=== PATIENT | female | born 1975 | race African-American/Black ===

== ENCOUNTER 2016-07-24 14:50 | Inpatient (IN) | payer OTHER ==
[~2016-07-24] VITALS: Ht 162.6 cm; Wt 65.3 kg
[2016-07-24] MEDS ORDERED: ACETAMINOPHEN 325 MG TAB PO STA (15:09)
[2016-07-24] MEDS ORDERED: PIPER-TAZO 3.375 GM IV (PMX) 100 ML IVPB STA (15:09)
[2016-07-24] MEDS ORDERED: CLINDAMYCIN 900 MG/D5W (PMX) 50 ML IVPB STA (15:09)
[2016-07-24] MEDS ORDERED: VANCOMYCIN 1 GM (PMX) 250 ML IVPB STA (15:09)
[2016-07-24] MEDS ORDERED: SODIUM CHLORIDE 0.9% 1L BAG IV* STA (15:09)
[2016-07-24] MEDS ORDERED: HYDR-905 PO (15:35)
[2016-07-24] MEDS ORDERED: RIVA10TA PO (15:37)
[2016-07-24 16:23] LABS: ADD SCAN DIFF NO
[2016-07-24 16:29] LABS: BASOPHILS % 0.2 % (0.0-2.0); EOSINOPHILS % 0.2 % (0.0-7.0); HEMATOCRIT 38.3 % (37.0-47.0); HEMOGLOBIN 12.9 g/dl (12.0-16.0); LYMPHOCYTES # 1.1 10^3/ul (0.8-2.9); LYMPHOCYTES % 8.7 % (15.0-51.0); MEAN CORPUSCULAR HEMOGLOBIN 29.3 pg (29.0-33.0); MEAN CORPUSCULAR HGB CONC 33.7 g/dl (32.0-37.0); MEAN CORPUSCULAR VOLUME 86.8 fl (82.0-101.0); MEAN PLATELET VOLUME 8.7 fl (7.4-10.4); MONOCYTE # 1.2 10^3/ul (0.3-0.9); MONOCYTES % 9.6 % (0.0-11.0); NEUTROPHIL # 10.1 10^3/ul (1.6-7.5); PLATELET COUNT 358 10^3/UL (140-415); RED BLOOD COUNT 4.41 10^6/ul (4.20-5.40); RED CELL DISTRIBUTION WIDTH 11.9 % (11.5-14.5); WHITE BLOOD COUNT 12.4 10^3/ul (4.8-10.8)
[2016-07-24] MEDS ORDERED: ONDANSETRON 4 MG INJ IV STA (16:29)
[2016-07-24] MEDS ORDERED: morphine 2 MG INJ IV STA (16:29)
--- NOTE | 2016-07-24 16:29 | RADRPT ---
PROCEDURE: XR Chest. CLINICAL INDICATION: chest pain, sepsis TECHNIQUE: Single frontal view of the chest was obtained COMPARISON: None FINDINGS: The heart and mediastinum are within normal limits. The lungs are clear. There is no pleural effusion or pneumothorax. RPTAT: AA IMPRESSION: No acute disease. .Destin Draper MD, MD Date Time Electronically viewed and signed by .Destin Draper MD, on 07/24/2016 16:29 .S/
[2016-07-24 16:35] LABS: ADD UMIC YES; URINE BILIRUBIN (Dip) NEGATIVE (NEGATIVE); URINE BLOOD (Dip) 1+ (NEGATIVE); URINE COLOR LT. YELLOW (YELLOW); URINE GLUCOSE (Dip) NEGATIVE (NEGATIVE); URINE KETONES (Dip) 15 (NEGATIVE); URINE LEUKOCYTE ESTERASE (Dip) NEGATIVE (NEGATIVE); URINE NITRITE (Dip) NEGATIVE (NEGATIVE); URINE TOTAL PROTEIN (Dip) TRACE (NEGATIVE); URINE UROBILINOGEN (Dip) 0.2 E.U./dL (0.1-1.0)
[2016-07-24 16:39] LABS: ALBUMIN 4.1 g/dl (3.3-4.9); CHLORIDE 96 mmol/L (97-110); POTASSIUM 3.9 mmol/L (3.5-5.1); SODIUM 134 mmol/L (135-144)
[2016-07-24 16:40] LABS: INR 1.14; PROTIME 14.6 Sec (12.2-14.2); PT RATIO 1.1
[2016-07-24 16:41] LABS: CREATININE 0.77 mg/dl (0.44-1.00); PARTIAL THROMBOPLASTIN TIME 40.1 Sec (25.0-35.0)
[2016-07-24 16:42] LABS: ALANINE AMINOTRANSFERASE 34 IU/L (13-69); ALKALINE PHOSPHATASE 88 IU/L (42-121); ANION GAP 16 (8-16); ASPARTATE AMINO TRANSFERASE 22 IU/L (15-46); BILIRUBIN,INDIRECT 1.2 mg/dl (0-1.1); BILIRUBIN,TOTAL 1.2 mg/dl (0.2-1.3); BLOOD UREA NITROGEN 8 mg/dl (7-20); CARBON DIOXIDE 26 mmol/L (21-31); TOTAL PROTEIN 8.2 g/dl (6.1-8.1)
[2016-07-24 16:43] LABS: CALCIUM 9.1 mg/dl (8.4-10.2); GLUCOSE 110 mg/dl (70-220)
[2016-07-24 16:49] LABS: BACTERIA,URINE MANY; SQUAMOUS EPITHELIAL CELL,UR MANY
[2016-07-24 16:58] LABS: C-REACTIVE PROTEIN 19.2 mg/dl (0.0-0.9); TROPONIN-I < 0.012 ng/ml (0.00-0.12)
[2016-07-24] MEDS: ACETAMINOPHEN 325 MG TAB PO PRN ×2 (17:00→18:14)
--- NOTE | 2016-07-24 17:22 | RADRPT ---
PROCEDURE: Ultrasound of the left lower extremity venous system. CLINICAL INDICATION: Left leg pain and swelling, deep venous thrombosis TECHNIQUE: Alba scale with and without compression, color doppler, spectral doppler of the venous system of the left lower extremity was performed. Venous augmentation maneuvers were utilized. COMPARISON: No prior studies are available for comparison. FINDINGS: Common femoral vein: Patent. Femoral vein: Patent. Popliteal vein: Patent. Calf veins: Patent. No soft tissue abnormalities are identified. IMPRESSION: No evidence of a deep vein thrombosis within the left lower extremity. RPTAT: AADD .Vel Moreno MD, MD Date Time Electronically viewed and signed by .Vel Moreno MD, on 07/24/2016 17:22 .B/
--- NOTE | 2016-07-24 17:50 | CONS ---
DATE OF ADMISSION: 07/24/2016 DATE OF CONSULTATION: 07/24/2016 TYPE OF CONSULTATION: Infectious Disease. REASON FOR CONSULTATION: Antibiotic management. HISTORY OF PRESENT ILLNESS: Graciela Solo is a very pleasant 41-year-old -[place]ovenian female who has no significant past medical history aside from injuries to her knees. She had arthroscopy o n her right knee after an injury in high school and on 05/16/2016 she injured her left knee and unde rwent an ACL reconstruction and medial and lateral meniscus repair on 07/12/2014. At that time, the knee was cultured and she grew out scant Proteus mirabilis and enterococcus. The knee was then violet spirated today and the patient sent to the emergency room. Of note, is the fact that she had a feve r last night up to 103. She had no runny nose or sore throat, but did have a painful left knee. Cu rrently, her temperature is 99. Blood cultures were done. Urine cultures were done. Aspiration of the knee was done. PAST MEDICAL HISTORY: Operations as outlined. FAMILY HISTORY: She is a single. Her mother and father are alive, but she is adopted. HABITS: She does not smoke. She drinks occasional red wine. She was born in [place]. No re cent travel. Moved here in 2000. She has no pets. She rarely eats sushi. She works for [employer] in [place]. REVIEW OF SYSTEMS: Otherwise, is negative. PHYSICAL EXAMINATION: GENERAL: The patient is a well-developed, well-nourished, friendly female who is alert, responsive, in no acute distress. VITAL SIGNS: Stable. She is afebrile. Temperature on admission was 103.2. SKIN: Without generalized rash. HEENT: Within normal limits. NECK: Supple. LYMPH NODES: None palpable. CHEST: Decreased breath sounds at the bases. HEART: Without murmur or gallop. ABDOMEN: Soft, nontender, without organosplenomegaly or masses. EXTREMITIES: The left knee is wrapped and bandaged and in a brace. Right knee and right lower extr emity without cyanosis, clubbing, or edema. Pulses 2+. RECTAL AND GENITAL: Deferred. NEUROLOGIC: No focal neurological abnormality. IMPRESSION AND PLAN: Graciela Solo is a pleasant 41-year-old female, who comes in now with fevers and possible infected left knee. She grew out scant Proteus mirabilis and enterococcus. She will be started on vancomycin and Zosyn until we get the new cultures back. I will dictate my findings t o Dr. Merlyn Tafoya. I want to thank him for asking me to see this jennifer lady in consultation. Dictated By: JENISE LEONG MD, JD/JUAN Conf#: [id number] DID#: [id number] CC: MERLYN TAFOYA MD; JENISE LEONG MD;*[facility]*
[2016-07-24] MEDS ORDERED: ONDANSETRON 4 MG INJ IV PRN (18:00)
--- NOTE | 2016-07-24 19:19 | ERA ---
ER Documentation Chief Complaint Date/Time DATE: 07/24/16 TIME: 19:12 Chief Complaint 12 POST OP R ACL REPAIR, FEVER 103.2 HPI This is a very pleasant 41-year-old -[place] female who has no significant past medical history. She had arthroscopy on her right knee after an injury in high school and on 05/16/2016 and underwent an ACL repair with medial lateral meniscus repair on July 12, 2014 performed by the orthopedic surgeon Dr. Valle. The patient indicates she has no shortness of breath at rest or exertion. She presented for reevaluation today and orthopedics office and was seen by orthopedic surgeon Dr. Álvarez who aspirated the knee, as the patient stated she had developed a fever. Her fever began roughly 12 hours prior to arrival was 103. She did not take any antipyretics. She indicated that several years prior to arrival she repeated her temperature was 102. Her temperature was 99.0 an orthopedic surgeon's office. She denies no calf tenderness or swelling. She has not had a productive or nonproductive cough. She did indicate she had gone to the emergency room several days prior to arrival for constipation after taking opiate analgesic medication and was concerned that she could have been subjected to a sick contact at that time. ROS All systems reviewed and are negative except as per history of present illness. Medications Home Meds Reported Medications Rivaroxaban* (Xarelto*) 10 Mg Tablet, 10 MG PO DAILY for 7 Days, #7 TAB start 07/23/16 07/24/16 Hydrocodone/Acetaminophen ([place] 7.5-325 Tablet) 1 Each Tablet, 1 EACH PO Q6H, TAB 07/24/16 Allergies Allergies: Coded Allergies: No Known Allergy (Unverified , 07/24/16) PMhx/Soc History of Surgery: Yes (Lt knee sx 07/2016, Rt knee 1993, Salpingoophrectomy 2009) Anesthesia Reaction: No Hx Neurological Disorder: No Hx Respiratory Disorders: No Hx Cardiac Disorders: No Hx Psychiatric Problems: No Hx Miscellaneous Medical Probl: Yes (ectopic preg) Hx Alcohol Use: Yes (occassional) Hx Substance Use: No Hx Tobacco Use: No Smoking Status: Never smoker Physical Exam Vitals Vital Signs Date Time Temp Pulse Resp B/P Pulse Ox O2 Delivery O2 Flow Rate FiO2 07/24/16 17:30 101 16 111/66 99 Room Air 07/24/16 16:35 99.7 108 18 116/78 100 Room Air 07/24/16 16:00 99.6 110 18 118/79 100 Room Air 07/24/16 15:01 103.2 115 18 116/63 99 Physical Exam Constitutional:Well-developed. Well-nourished. HEENT:Normocephalic. Atraumatic.Pupils were equal round reactive to light. Moist mucous membranes.No tonsillar exudates. Neck: No nuchal rigidity. No lymphadenopathy. No posterior cervical spine tenderness or step-offs. Respiratory: Not using accessory muscles of respiration.Lungs were clear to auscultation bilaterally. No rhonchi. No rales. No wheezing. Cardiovascular: Regular rate regular rhythm.No murmurs. No rubs were appreciated.S1, S2 normal. Distal pulses are palpable 2+ bilaterally. GI: Abdomen was soft. Nontender. Non Distended. No pulsatile abdominal masses or bruits. No rebound. No guarding. Bowel sounds were present and normal. Muscle skeletal: Full range of motion of both the upper and lower extremities bilaterally.Normal muscle tone.No assymetrical calf tenderness or swelling. Skin: No petechia, no purpura. No lesions on the palms or the soles of the feet. No maculopapular rash. Surgical incision site on the medial aspect of the left knee was clean dry and intact with no wound dehiscence. No surrounding erythema warmth tenderness fluctuance or induration. NEURO: Patient was alert, awake, orientated x3.No facial droop. Gait observed and normal with no ataxia.Speech had regular rate and rhythm. No focal neurological deficits. Result Diagram: 07/24/16 1600 07/24/16 1600 Results 24 hrs Laboratory Tests Test 07/24/16 16:00 White Blood Count 12.410^3/ul Red Blood Count 4.4110^6/ul Hemoglobin 12.9g/dl Hematocrit 38.3% Mean Corpuscular Volume 86.8fl Mean Corpuscular Hemoglobin 29.3pg Mean Corpuscular Hemoglobin Concent 33.7g/dl Red Cell Distribution Width 11.9% Platelet Count 15162^3/UL Mean Platelet Volume 8.7fl Neutrophils % 81.0% Lymphocytes % 8.7% Monocytes % 9.6% Eosinophils % 0.2% Basophils % 0.2% Nucleated Red Blood Cells % 0.0/100WBC Neutrophils # 10.110^3/ul Lymphocytes # 1.110^3/ul Monocytes # 1.210^3/ul Eosinophils # 0.010^3/ul Basophils # 0.010^3/ul Nucleated Red Blood Cells # 0.010^3/ul Erythrocyte Sedimentation Rate 54mm/Hr Prothrombin Time 14.6Sec Prothrombin Time Ratio 1.1 INR International Normalized Ratio 1.14 Activated Partial Thromboplast Time 40.1Sec Urine Color LT. YELLOW Urine Clarity SLIGHTLY CLOUDY Urine pH 7.0 Urine Specific [place] 1.015 Urine Ketones 15 Urine Nitrite NEGATIVE Urine Bilirubin NEGATIVE Urine Urobilinogen 0.2 E.U./dL Urine Leukocyte Esterase NEGATIVE Urine Microscopic RBC 2-5/HPF Urine Microscopic WBC 0-2/HPF Urine Squamous Epithelial Cells MANY Urine Bacteria MANY Urine Hemoglobin 1+ Urine Glucose NEGATIVE% Urine Total Protein TRACE Sodium Level 134mmol/L Potassium Level 3.9mmol/L Chloride Level 96mmol/L Carbon Dioxide Level 26mmol/L Anion Gap 16 Blood Urea Nitrogen 8mg/dl Creatinine 0.77mg/dl Glucose Level 110mg/dl Lactic Acid Level 1.2mmol/L Calcium Level 9.1mg/dl Total Bilirubin 1.2mg/dl Direct Bilirubin 0.00mg/dl Indirect Bilirubin 1.2mg/dl Aspartate Amino Transf (AST/SGOT) 22IU/L Alanine Aminotransferase (ALT/SGPT) 34IU/L Alkaline Phosphatase 88IU/L Troponin I < 0.012ng/ml C-Reactive Protein 19.2mg/dl Total Protein 8.2g/dl Albumin 4.1g/dl Globulin 4.10g/dl Albumin/Globulin Ratio 1.00 Serum HCG, Qualitative NEGATIVE Current Medications Medications (Trade) Dose Ordered Sig/Ce Route PRN Reason Start Time Stop Time Status Last Admin Dose Admin Sodium Chloride (NS) 1,760 ml BOLUS OVER 2 HOURS STAT IV* 07/24/16 15:09 07/24/16 15:16 DC 07/24/16 16:20 Acetaminophen 1000 mg 1,000 mg ONCE STAT PO 07/24/16 15:09 07/24/16 15:17 DC Vancomycin HCl 250 ml @ 125 mls/hr ONCE STAT IVPB 07/24/16 15:09 07/24/16 17:08 DC 07/24/16 18:55 Clindamycin HCl/ Dextrose 50 ml @ 50 mls/hr ONCE STAT IVPB 07/24/16 15:09 07/24/16 16:08 DC Piperacillin Sod/ Tazobactam Sod (Zosyn 3.375gm/ 100 ml (Pmx)) 100 ml @ 100 mls/hr ONCE STAT IVPB 07/24/16 15:09 07/24/16 16:08 DC 07/24/16 16:30 Morphine Sulfate (morphine) 2 mg ONCE STAT IV 07/24/16 16:29 07/24/16 16:32 DC 07/24/16 16:30 Ondansetron HCl (Zofran Inj) 4 mg ONCE STAT IV 07/24/16 16:29 07/24/16 16:32 DC 07/24/16 16:30 Ondansetron HCl (Zofran Inj) 4 mg ER BRIDGE PRN IV NAUSEA AND/OR VOMITING 07/24/16 18:00 07/25/16 17:59 07/24/16 16:25 Acetaminophen (Tylenol Tab) 650 mg ER BRIDGE PRN PO MILD PAIN/FEVER 07/24/16 18:00 07/25/16 17:59 07/24/16 17:00 Procedures/MDM This patient presented to the emergency department with a documented fever. A chest radiograph was obtained and showed no evidence of pneumonia. There is no leukocytosis. Lactic acid was within normal limits. An arthrocentesis have been performed by Dr. Nick and the aspirated fluid is currently been sent for cell culture, Gram stain, and cell count. The patient had taken one 10 mg tablet of Xarelto yesterday prescribed by Dr. Valle but did not take that today as she was scheduled to fly next Friday to [facility] to receive an award. A venous duplex ultrasound of the left lower extremity indicated no evidence of a deep vein thrombosis. The surgical incision site looks clean dry and intact. However given the severity of the patient's symptoms she was prophylactically treated with IV antibiotics including vancomycin, Zosyn and clindamycin. Blood cultures and urine cultures were taken prior to antibiotics being given. The patient will be admitted to the medical surgical floor in serious condition under the care of Dr. Valle. 12 Lead EKG tracing ordered and reviewed by myself showed: Sinus tach at 109 bpm and no arrhythmia. IN interval normal. QRS duration normal. No ST segment elevation No ST segment depression. No changes consistent with acute ischemia. Departure Diagnosis: Primary Impression: Fever and chills Additional Impression: Post-op pain Condition: Serious RAS HOBBS Jul 24, 2016 19:19
[2016-07-24 20:10] LABS: FLUID APPEARANCE BLOODY; FLUID TYPE OTHERS
[2016-07-24 20:12] LABS: FLUID RBC EST 4+; FLUID WBC'S 3692 /cmm
[2016-07-24 20:13] LABS: FLUID LYMPHOCYTES 10 %; FLUID MONOCYTES 6 %; FLUID NEUTROPHILS 84 %
--- NOTE | 2016-07-24 20:58 | CONS ---
DATE OF ADMISSION: 07/24/2016 DATE OF CONSULTATION: ADDENDUM In my initial dictation I said that she grew out scant Proteus mirabilis and Enterococcus from her l eft knee. This was not correct. An aspiration was done and we are awaiting the results of the aspi ration. She did have a fever up to 103.2 in the emergency room. She was started on vancomycin and Zosyn and we will await the cultures. I have discussed the case with Dr. Pablo Valle and will aw ait the culture results. Dictated By: JENISE LEONG MD, JD/JUAN Conf#: [id number] DID#: [id number]
[2016-07-24 21:00] VITALS: TEMP 98.5
[2016-07-24 22:26] VITALS: PULSE 101
[2016-07-24 22:32] VITALS: BP 116/64; RESP 18
[2016-07-24] MEDS ORDERED: SOD CHLORIDE 0.9% 1,000 ML IV SCH (23:38)
[2016-07-25] VITALS (19 sets, daily range): BP systolic 101–115; BP diastolic 56–74; PULSE 93–114; RESP 13–22; Ht 162.6 cm; Wt 65.3 kg
[2016-07-25] MEDS ORDERED: BISACODYL 10 MG SUPP PR PRN
[2016-07-25] MEDS ORDERED: NA PHOSPHATE/BIPHOS 133 ML ENEMA PR PRN
[2016-07-25] MEDS ORDERED: MAGNESIUM HYDROXIDE 30ML CUP PO PRN
[2016-07-25] MEDS ORDERED: DIPHENHYDRAMINE 25 MG CAP PO PRN
--- NOTE | 2016-07-25 00:05 | HP ---
DATE OF ADMISSION: 07/24/2016 CHIEF COMPLAINT: 1. Right knee pain. 2. High fever. HISTORY OF PRESENT ILLNESS: The patient is a 41-year-old female well known to me who injured her kn ee in a basketball game on 05/16/2016 and was found to have torn the anterior cruciate ligament. On 07/12/2016, she had arthroscopy of the left knee with partial medial and lateral meniscectomy and a nterior cruciate ligament reconstruction with Achilles tendon allograft. Her postoperative visit , her knee looked very good. She was doing fine. Friday night or Friday, she started feelin g somewhat ill, had a very high fever today, was feeling bad and was seen in the office on an emerge ncy basis. Aspiration was done in the office for culture and sensitivity in her knee and in the wou nd along the proximal tibia. No fluid was in the wound of proximal tibia. There was some blood arielle t was sent for culture and sensitivity from the knee, looked to be from residual surgery. Because o f very high fevers and our great concern of sepsis and an infection, and she is admitted now for hos pitalization. PAST HISTORY OF PRESENT ILLNESS: As above. PAST MEDICAL HISTORY: ALLERGIES: 1. LATEX. 2. DAIRY. 3. SHRIMP. 4. CRAB. MEDICATIONS: She took 1 Xarelto yesterday because she was going to travel, but she is not going to travel now. Other medications none. SURGERY: Right ACL repair. MEDICAL PROBLEMS: Unstable right shoulder. FAMILY HISTORY: Positive for hypertension. SOCIAL HISTORY: Nonsmoker. Drinks occasionally. REVIEW OF SYSTEMS: Negative except as noted above. PHYSICAL EXAMINATION: GENERAL: Pleasant female, oriented x3. VITAL SIGNS: Her blood pressure was 150/100, her pulse was over 100, respirations were 18, and her temperature was 101.5. EXTREMITIES: Orthopedic exam which revealed small effusion in the knee, warmth in both knees but no t increased in the right. Range of motion could not be assessed due to pain. She had pain along th e medial proximal tibial wound. The wound itself had slight serous drainage. ASSESSMENT: 1. High fever, rule out sepsis and possible knee infection. 2. Status post partial medial and lateral meniscectomy and anterior cruciate ligament reconstructio n of left knee with Achilles allograft on 07/12/[address] Valle. PLAN: 1. Emergency admission. 2. Blood and urine cultures. 3. Emergency stat lab. 4. Consultation with Dr. Casper for infectious disease considerations and IV antibiotics. 5. We will watch the patient very carefully to determine appropriate course of action. Dictated By: MERLYN MULTANI/JUAN Conf#: [id number] DID#: [id number]
[2016-07-25] MEDS: PIPER-TAZO 2.25 GM (PMX) 50 ML IVPB SCH ×4 (00:16→22:46)
--- NOTE | 2016-07-25 06:58 | PN ---
Date/Time of Note Date/Time of Note DATE: 07/25/16 TIME: 06:54 Assessment/Plan VTE Prophylaxis VTE Prophylaxis Intervention: ambulation, other (Xarelto) Lines/Catheters IV Catheter Type (from Nrsg): Peripheral IV Assessment/Plan Chief Complaint/Hosp Course s/p ACL reconstruction with Achilles allograft on 07/12/16, now with concern for sepic arthritis vs. other febrile etiology Problems: Assessment/Plan 1. Pain control 2. PT/OT, ok for WBAT on LLE, ok for 0-90 ROM, in hinged knee brace 3. Concern for infected TKR: Cell count 3400 with 84% polys, cultures pending, gram stain pending. Unlikely infection given these aspirate numbers. Continue Vanc/Zosyn. ID following, appreciate assistance. Urine cultures negative. Blood culture pending. 4. DVT PPX: Ambulation, Xarelto 5. NPO for now, will likely progress diet later this am pending gram stain results. Subjective 24 Hr Interval Summary Subjective hx not possible: other (No acute events overnight. HR decreased and temp to 100.4. ) Constitutional: chills Respiratory: no complaints Cardiovascular: no complaints Gastrointestinal: no complaints Exam/Review of Systems Vital Signs Vitals Vital Signs Date Time Temp Pulse Resp B/P Pulse Ox O2 Delivery O2 Flow Rate FiO2 07/25/16 05:00 99.0 98 17 111/69 100 Room Air Intake and Output 07/24/16 07/24/16 07/25/16 15:00 23:00 07:00 Intake Total 350 ml 700 ml Output Total 600 ml Balance 350 ml 100 ml Exam Constitutional: alert, oriented Psych: no complaints Respiratory: normal air movement Cardiovascular: regular rate and rhythm Extremities: other (Able to move foot. Sensation intact. Dressing CDI. No drainage or foul smelling discharge. ) Results Result Diagram: 07/24/16 1600 07/24/16 1600 Results 24 hrs Laboratory Tests Test 07/24/16 16:00 07/24/16 19:30 07/24/16 20:10 White Blood Count 12.4 H Red Blood Count 4.41 Hemoglobin 12.9 Hematocrit 38.3 Mean Corpuscular Volume 86.8 Mean Corpuscular Hemoglobin 29.3 Mean Corpuscular Hemoglobin Concent 33.7 Red Cell Distribution Width 11.9 Platelet Count 358 Mean Platelet Volume 8.7 Neutrophils % 81.0 H Lymphocytes % 8.7 L Monocytes % 9.6 Eosinophils % 0.2 Basophils % 0.2 Nucleated Red Blood Cells % 0.0 Neutrophils # 10.1 H Lymphocytes # 1.1 Monocytes # 1.2 H Eosinophils # 0.0 Basophils # 0.0 Nucleated Red Blood Cells # 0.0 Erythrocyte Sedimentation Rate 54 H Prothrombin Time 14.6 H Prothrombin Time Ratio 1.1 INR International Normalized Ratio 1.14 Activated Partial Thromboplast Time 40.1 H Urine Color LT. YELLOW Urine Clarity SLIGHTLY CLOUDY Urine pH 7.0 Urine Specific [place] 1.015 Urine Ketones 15 Urine Nitrite NEGATIVE Urine Bilirubin NEGATIVE Urine Urobilinogen 0.2 E.U./dL Urine Leukocyte Esterase NEGATIVE Urine Microscopic RBC 2-5 Urine Microscopic WBC 0-2 Urine Squamous Epithelial Cells MANY Urine Bacteria MANY Urine Hemoglobin 1+ H Urine Glucose NEGATIVE Urine Total Protein TRACE Body Fluid Type OTHERS Body Fluid Volume 1.0 Body Fluid Color RED Body Fluid Appearance BLOODY Body Fluid WBC 3692 Body Fluid RBC 4+ Body Fluid Neutrophils % 84 Body Fluid Lymphocytes (%) 10 Body Fluid Monocytes % 6 Sodium Level 134 L Potassium Level 3.9 Chloride Level 96 L Carbon Dioxide Level 26 Anion Gap 16 Blood Urea Nitrogen 8 Creatinine 0.77 Glucose Level 110 Lactic Acid Level 1.2 1.9 0.7 Calcium Level 9.1 Total Bilirubin 1.2 Direct Bilirubin 0.00 Indirect Bilirubin 1.2 H Aspartate Amino Transf (AST/SGOT) 22 Alanine Aminotransferase (ALT/SGPT) 34 Alkaline Phosphatase 88 Troponin I < 0.012 C-Reactive Protein 19.2 H Total Protein 8.2 H Albumin 4.1 Globulin 4.10 H Albumin/Globulin Ratio 1.00 Serum HCG, Qualitative NEGATIVE Medications Medications Current Medications Senna/Docusate Sodium (Senokot-S) 1 tab BID PO ; Start 07/25/16 at 09:00 Magnesium Hydroxide (Milk Of Mag) 30 ml BID PRN PO CONSTIPATION; Start at 00:00 Magnesium Hydroxide (Milk Of Mag) 30 ml HS PO ; Start 07/26/16 at 21:00 Bisacodyl (Dulcolax Supp) 10 mg DAILY PRN MT CONSTIPATION; Start 07/25/16 at 00 :00 Sodium Biphosphate/ Sodium Phosphate (Fleet Enema) 133 ml DAILY PRN MT CONSTIPATION; Start 07/25/16 at 00:00 Acetaminophen 1000 mg 1,000 mg Q4H PRN PO TEMP GREATER THAN 100.4F; Start 07/25 at 00:00 Sodium Chloride (NS) 1,000 ml @ 100 mls/hr Q10H IV Last administered on 00:17; Admin Dose 100 MLS/HR; Start 07/24/16 at 23:38 Oxycodone/ Acetaminophen (Percocet (5/ 325)) 1 tab Q4H PRN PO PAIN; Start 07/25 at 00:00 Oxycodone/ Acetaminophen (Percocet (5/ 325)) 2 tab Q4H PRN PO PAIN; Start 07/25 at 00:00 Morphine Sulfate (morphine) 5 mg Q4H PRN IV PAIN LEVEL 7-10; Start 07/25/16 at 00:00 Ondansetron HCl (Zofran Inj) 4 mg Q4H PRN IV NAUSEA AND/OR VOMITING; Start at 00:00 Diphenhydramine HCl 25 mg 25 mg Q4H PRN PO ITCHING; Start 07/25/16 at 00:00 Vancomycin HCl 1.25 gm/Sodium Chloride 250 ml @ 83.333 mls/ hr Q24H IVPB ; Start 07/25/16 at 18:00 Piperacillin Sod/ Tazobactam Sod (Zosyn 2.25gm/ 50ml (Pmx)) 50 ml @ 100 mls/hr Q8 IVPB Last administered on 07/25/16 05:55; Admin Dose 100 MLS/HR; Start at 00:00 MERLYN TAFOYA MD Jul 25, 2016 06:58
[2016-07-25] MEDS ORDERED: ACETAMINOPHEN 1000 MG/100 ML IVPB ONE (07:00)
[2016-07-25] MEDS ORDERED: morphine 4 MG/ML VIAL IV ONE ×2 (08:00)
[2016-07-25] MEDS: DEXTROSE 5%-LR 1,000 ML IV SCH ×2 (08:06→22:44)
[2016-07-25] MEDS: SENNA/DOCUSATE NA (8.6MG/50MG) TAB PO SCH ×2 (08:10→22:37)
[2016-07-25] MEDS: ACETAMINOPHEN 500 MG TAB PO PRN (08:10)
[2016-07-25] MEDS: ONDANSETRON 4 MG INJ IV PRN ×2 (08:10→13:09)
[2016-07-25] MEDS: morphine 10 MG INJ IV PRN ×2 (08:10→13:09)
--- NOTE | 2016-07-25 16:02 | PN ---
DATE: 07/25/2016 SUBJECTIVE: This is an infectious disease progress note. No acute changes. The patient is alert, feels good, looks comfortable. VITAL SIGNS: T-max 100.8, T-current 98.6. No labs this morning. MICROBIOLOGY: Cultures are pending. ANTIMICROBIALS: The patient is on IV vancomycin and Zosyn. PHYSICAL EXAMINATION: GENERAL: Well-developed, well-nourished middle-aged -[place] woman who is alert, in no dist ress. HEENT: Head atraumatic, normocephalic. Sclerae anicteric. Buccal mucosa pink. NECK: Supple. CHEST: Rise symmetrical. Breath sounds clear. HEART: S1, S2. ABDOMEN: Soft, bowel sounds present. EXTREMITIES: Left lower extremity John wrap, knee immobilizer. ASSESSMENT: 1. Infected left knee, rule out septic arthritis, status post anterior cruciate ligament reconstruc tion with Achilles allograft on 07/12/2016. 2. Systemic inflammatory response syndrome with low grade fevers and leukocytosis. PLAN: The patient remains stable. Final cultures pending. She is scheduled for left knee washout today. Dictated By: MARITZA DE PAZ CYTOTECHNOLOGIST/CYTOLOGY SUPERVISOR for JENISE LEONG MD NI/NTS Conf#: [id number] DID#: [id number]
[2016-07-25] MEDS ORDERED: BUPIVACAINE 0.5% (SDV) 30 ML INJ ONE (17:03)
[2016-07-25] MEDS ORDERED: PROPOFOL 20 ML ONE ×2 (17:22→18:36)
[2016-07-25] MEDS ORDERED: FENTAnyl 50 MCG/ML VIAL ONE ×2 (17:22→17:44)
[2016-07-25] MEDS ORDERED: MIDAZOLAM 1 MG/ML 2 ML INJ ONE (17:22)
[2016-07-25] MEDS ORDERED: VANCOMYCIN 1 GM (PMX) 250 ML ONE (17:26)
[2016-07-25] MEDS: RIVAROXABAN 10 MG TABLET PO SCH (17:55)
[2016-07-25] MEDS ORDERED: POLYMYXIN B 500000 UNIT INJ ONE (17:59)
[2016-07-25] MEDS ORDERED: VANCOMYCIN 1.25 GM in SOD CHLORIDE 0.9% 250 ML IVPB SCH (18:00)
[2016-07-25] MEDS ORDERED: LABETALOL HCL 20MG INJ ONE (18:01)
[2016-07-25] MEDS ORDERED: METOCLOPRAMIDE 10 MG INJ ONE (18:23)
[2016-07-25] MEDS ORDERED: DEXAMETHASONE 4 MG/ML 1 ML INJ ONE (18:23)
[2016-07-25] MEDS ORDERED: KETOROLAC 30 MG INJ ONE (18:23)
[2016-07-25] MEDS ORDERED: ONDANSETRON 4 MG INJ ONE (18:23)
[2016-07-25] MEDS ORDERED: HYDROmorphONE (0.2 MG/ML) 10ML SYG IV PRN ×3 (18:30)
[2016-07-25] MEDS ORDERED: DIPHENHYDRAMINE 50 MG INJ IV PRN (18:30)
[2016-07-25] MEDS ORDERED: METOCLOPRAMIDE 10 MG INJ IV PRN (18:30)
[2016-07-25] MEDS ORDERED: OXYCODONE/ACETAMINOPHEN (5/325) TAB PO PRN ×4 (18:30)
[2016-07-25] MEDS ORDERED: morphine (1 MG/ML) 10ML SYRINGE IV PRN ×3 (18:30)
[2016-07-25] MEDS ORDERED: ONDANSETRON 4 MG INJ IV PRN (18:30)
[2016-07-25] MEDS ORDERED: ALBUMIN HUMAN 5% 250 ML IV PRN (18:30)
[2016-07-25] MEDS ORDERED: EPHEDrine SULFATE 50 MG/5 ML SYG IV PRN (18:30)
[2016-07-25] MEDS ORDERED: VANCOMYCIN IV PER PHARMACY XX SCH (18:30)
[2016-07-25] MEDS ORDERED: MEPERIDINE 25 MG INJ IV PRN (18:30)
[2016-07-25] MEDS ORDERED: MEPERIDINE 100 MG INJ ONE (18:36)
[2016-07-25] MEDS ORDERED: PHENYLephrine (100 MCG/ML) 5ML SYG ONE (18:37)
[2016-07-25] MEDS ORDERED: VANCOMYCIN 1 GM INJ ONE (18:50)
[2016-07-25] MEDS ORDERED: BACITRACIN 50000 UNITS INJ IRR ONE (19:19)
--- NOTE | 2016-07-25 19:33 | PN ---
Date/Time of Note Date/Time of Note DATE: 07/25/16 TIME: 19:30 Assessment/Plan VTE Prophylaxis VTE Prophylaxis Intervention: other (Xarelto) Lines/Catheters IV Catheter Type (from Nrsg): Peripheral IV Urinary Cath still in place: No Assessment/Plan Chief Complaint/Hosp Course s/p ACL reconstruction with Achilles allograft on 07/12/16, and s/p I&D with cultures on 07/25/16 Problems: Assessment/Plan POD0 s/p I&D of left infected knee and ACL graft - Pain control: CLAY MOLDER, PO pain meds, wean CLAY MOLDER as tolerated - PT/OT, WBAT LLE - Drain in place, monitor output q8 hours - New cultures taken in OR, monitor new cultures and cell count, purulent material noted in knee/wound - ID: Recommendations appreciated, will follow cultures. Currently on Vanc/ Zosyn. - Trend CRP/ESR, will re-check CRP on Friday 07/28 evening. - Possibly return to OR on Thursday 07/27 if necessary - Diet: Advance to regular as tolerated. Subjective 24 Hr Interval Summary Subjective hx not possible: other Exam/Review of Systems Vital Signs Vitals Vital Signs Date Time Temp Pulse Resp B/P Pulse Ox O2 Delivery O2 Flow Rate FiO2 07/25/16 16:29 108 07/25/16 13:17 98.6 22 101/59 97 Room Air Intake and Output 07/24/16 07/24/16 07/25/16 15:00 23:00 07:00 Intake Total 350 ml 700 ml Output Total 600 ml Balance 350 ml 100 ml Results Result Diagram: 07/24/16 1600 07/24/16 1600 Results 24 hrs Laboratory Tests Test 07/24/16 20:10 Lactic Acid Level 0.7 Medications Medications Current Medications Senna/Docusate Sodium (Senokot-S) 1 tab BID PO Last administered on 07/25/16t 08:10; Admin Dose 1 TAB; Start 07/25/16 at 09:00 Magnesium Hydroxide (Milk Of Mag) 30 ml BID PRN PO CONSTIPATION; Start at 00:00 Magnesium Hydroxide (Milk Of Mag) 30 ml HS PO ; Start 07/26/16 at 21:00 Bisacodyl (Dulcolax Supp) 10 mg DAILY PRN [place] CONSTIPATION; Start 07/25/16 at 00 :00 Sodium Biphosphate/ Sodium Phosphate (Fleet Enema) 133 ml DAILY PRN [place] CONSTIPATION; Start 07/25/16 at 00:00 Acetaminophen (Tylenol Tab) 1,000 mg Q4H PRN PO TEMP GREATER THAN 100.4F Last administered on 07/25/16 08:10; Admin Dose 1,000 MG; Start 07/25/16 at 00:00 Oxycodone/ Acetaminophen (Percocet (5/ 325)) 1 tab Q4H PRN PO PAIN; Start 07/25 at 00:00 Oxycodone/ Acetaminophen (Percocet (5/ 325)) 2 tab Q4H PRN PO PAIN; Start 07/25 at 00:00 Morphine Sulfate (morphine) 5 mg Q4H PRN IV PAIN LEVEL 7-10 Last administered on 07/25/16 13:09; Admin Dose 5 MG; Start 07/25/16 at 00:00 Ondansetron HCl (Zofran Inj) 4 mg Q4H PRN IV NAUSEA AND/OR VOMITING Last administered on 07/25/16 13:09; Admin Dose 4 MG; Start 07/25/16 at 00:00 Diphenhydramine HCl 25 mg 25 mg Q4H PRN PO ITCHING; Start 07/25/16 at 00:00 Piperacillin Sod/ Tazobactam Sod 50 ml @ 100 mls/hr Q8 IVPB Last administered on 07/25/16 13:09; Admin Dose 100 MLS/HR; Start 07/25/16 at 00:00 Dextrose/Lactated Ringer's 1,000 ml @ 75 mls/hr [id number] IV Last administered on 07/25/16 08:06; Admin Dose 75 MLS/HR; Start 07/25/16 at 08:00 Vancomycin HCl/ Sodium Chloride (Vancocin/NS) 150 ml @ 75 mls/hr Q12H IVPB ; Start 07/26/16 at 06:00 MERLYN TAFOYA MD Jul 25, 2016 19:33
[2016-07-25 22:21] LABS: ADD SCAN DIFF NO
[2016-07-25 22:23] LABS: ABNORMAL IP MESSAGE 1; HEMATOCRIT 30.3 % (37.0-47.0); HEMOGLOBIN 10.1 g/dl (12.0-16.0); MEAN CORPUSCULAR HEMOGLOBIN 29.4 pg (29.0-33.0); MEAN CORPUSCULAR HGB CONC 33.3 g/dl (32.0-37.0); MEAN CORPUSCULAR VOLUME 88.3 fl (82.0-101.0); MEAN PLATELET VOLUME 8.4 fl (7.4-10.4); PLATELET COUNT 283 10^3/UL (140-415); RED BLOOD COUNT 3.43 10^6/ul (4.20-5.40); RED CELL DISTRIBUTION WIDTH 12.2 % (11.5-14.5); WHITE BLOOD COUNT 9.7 10^3/ul (4.8-10.8)
[2016-07-25 23:22] LABS: BASOPHIL # 0.1 10^3/ul (0.0-0.1); LYMPHOCYTES # 0.5 10^3/ul (0.8-2.9); MONOCYTE # 0.4 10^3/ul (0.3-0.9); NEUTROPHIL # 8.5 10^3/ul (1.6-7.5)
[2016-07-25 23:23] LABS: PLATELET ESTIMATE PLT APPEAR ADEQUATE
[2016-07-26] VITALS (13 sets, daily range): BP systolic 91–111; BP diastolic 53–69; PULSE 81–90; RESP 18–20
[2016-07-26] MEDS: PIPER-TAZO 2.25 GM (PMX) 50 ML IVPB SCH ×2 (05:52→14:27)
[2016-07-26] MEDS ORDERED: VANCOMYCIN 750 MG in SOD CHLORIDE 0.9% 150 ML IVPB SCH (06:00)
[2016-07-26 07:53] LABS: CREATININE 0.53 mg/dl (0.44-1.00)
[2016-07-26] MEDS: SENNA/DOCUSATE NA (8.6MG/50MG) TAB PO SCH ×2 (09:11→19:33)
[2016-07-26] MEDS: BISACODYL (EC) 5 MG TAB PO PRN (10:11)
[2016-07-26] MEDS: DEXTROSE 5%-LR 1,000 ML IV SCH (10:40)
[2016-07-26 14:21] LABS: FLUID TYPE OTHERS
[2016-07-26 14:22] LABS: FLUID APPEARANCE BLOODY
[2016-07-26 14:23] LABS: FLUID RBC EST 4+
[2016-07-26 14:24] LABS: FLUID EOSINOPHIL 1 %; FLUID LYMPHOCYTES 4 %; FLUID MONOCYTES 7 %; FLUID NEUTROPHILS 88 %
[2016-07-26 14:27] LABS: FLUID WBC'S 50 /cmm
--- NOTE | 2016-07-26 15:21 | OPR ---
DATE OF OPERATION: 07/24/2016 PREOPERATIVE DIAGNOSES: 1. Status post anterior cruciate ligament reconstruction, left knee with partial medial and lateral meniscectomy. 2. Rule out infection, left knee, status post surgery. POSTOPERATIVE DIAGNOSES: 1. Apparent infection, left knee after surgery. 2. Status post arthroscopy left knee with partial medial and lateral meniscectomy and anterior cruc iate ligament reconstruction with Achilles tendon allograft, 07/12/2016. PROCEDURE: 1. Arthroscopy of the left knee. 2. Irrigation, debridement and partial synovectomy, left knee. 3. Open irrigation and debridement proximal tibial wound. SURGEON: Merlyn Valle MD CAR WASH ATTENDANT AUTOMATIC: Liz Álvarez MD ANESTHESIA: General. TOURNIQUET TIME: Zero. DESCRIPTION OF PROCEDURE: The patient taken to the operating room, placed in supine position. Sati sfactory general anesthesia was administered. The patient was already on antibiotics. She had been admitted several days previously. At approximately 12 days postop, she developed a high fever up t o 103, became septic, was admitted to [facility]. Multiple cultures have been taken. It a ppears that she has an infection in her knee, admitted now for surgery. Standard arthroscopic portals were used. The fluid was removed out of her knee looked purulent. It was sent for cell count and culture and sensitivity, aerobes and anaerobes. Extensive amount of de bris, scar tissue and synovitis in the knee. This was all removed with a shaver and a grasper. Mul tiple synovial biopsies were sent for culture and sensitivity. The articular surfaces looked intact and were smooth and glistening. The debris and exudate was peeled off of the menisci, and ACL and PCL. The graft looked intact as did the menisci. After completely debriding the entire knee, the k nee was washed out with 15 liters of antibiotic fluid. Prior to doing the arthroscopy, we draped of f the proximal tibial wound. After irrigating out the knee completely, a Johan-Marrero drain was pl aced in the knee. The wounds were closed with 3-0 black nylon. With the knee wounds closed. our at tention turned to the proximal tibial wound where the ACL was inserted. The wound was opened. There was purulence in the wound. Cultures had been taken in the morning. The subcutaneous sutures and the fascial sutures were removed. The Fastlok staple and graft and scr ew were left in place. The wound was debrided and then irrigated with 10 liters of antibiotic fluid . One gram of vancomycin powder was then placed in the wound. The wound was closed with #1 large n ylon sutures tied over a rubber catheter Three large ones were used to close the space and the n 4-0 black nylon was used interrupted and mattress to close the skin. A compression dressing was a pplied, and placed back in a brace and she was brought to the recovery room in stable condition. At the end of the procedure, sponge and needle count was correct. The patient tolerated the procedure well. Dictated By: MERLYN MULTANI/JUAN Conf#: [id number] DID#: [id number]
[2016-07-26] MEDS: morphine 10 MG INJ IV PRN ×3 (15:57→22:45)
[2016-07-26] MEDS: ONDANSETRON 4 MG INJ IV PRN (16:07)
--- NOTE | 2016-07-26 16:34 | PN ---
Date/Time of Note Date/Time of Note DATE: 07/26/16 TIME: 16:31 Assessment/Plan VTE Prophylaxis VTE Prophylaxis Intervention: ambulation, other Lines/Catheters IV Catheter Type (from Nrsg): Peripheral IV Urinary Cath still in place: No Assessment/Plan Chief Complaint/Hosp Course s/p ACL reconstruction with Achilles allograft on 07/12/16, and s/p I&D with cultures on 07/25/16 Problems: Assessment/Plan - Pain control - SCD's, ambulation, Xarelto for DVT PPx - ID: Cultures growing Staph. Awaiting sensitivities. WBC down to 9.4. Will trend CRP and obtain a CRP tonight. PICC line pending. - Plan for repeat I&D of left knee tomorrow am - NPO past midnight tonight. - IVF at 125cc/hour after midnight tonight - PT/OT - Dispo pending final cultures, final Abx plan. Subjective 24 Hr Interval Summary Subjective hx not possible: other (No acute overnight events. Afebrile, feeling better. ) Exam/Review of Systems Vital Signs Vitals Vital Signs Date Time Temp Pulse Resp B/P Pulse Ox O2 Delivery O2 Flow Rate FiO2 07/26/16 16:07 89 07/26/16 15:22 98.6 20 104/59 98 07/25/16 21:08 Room Air 07/25/16 20:34 2.0 Intake and Output 07/25/16 07/25/16 07/26/16 15:00 23:00 07:00 Intake Total 450 ml 08670 ml 260 ml Output Total 25 ml Balance 450 ml 23976 ml 260 ml Exam Constitutional: alert, oriented Musculoskeletal: other (Left knee dressing CDI, Able to FP/DF foot, sensation intact. HV drain draining. ) Results Result Diagram: 07/25/16 2200 07/26/16 0605 Results 24 hrs Laboratory Tests Test 07/25/16 19:00 07/25/16 22:00 07/26/16 06:05 Body Fluid Type OTHERS Body Fluid Volume 20.0 Body Fluid Color RED Body Fluid Appearance BLOODY Body Fluid WBC 50 Body Fluid RBC 4+ Body Fluid Neutrophils % 88 Body Fluid Lymphocytes (%) 4 Body Fluid Monocytes % 7 Body Fluid Eosinophils % 1 White Blood Count 9.7 # Red Blood Count 3.43 #L Hemoglobin 10.1 #L Hematocrit 30.3 #L Mean Corpuscular Volume 88.3 Mean Corpuscular Hemoglobin 29.4 Mean Corpuscular Hemoglobin Concent 33.3 Red Cell Distribution Width 12.2 Platelet Count 283 # Mean Platelet Volume 8.4 Neutrophils % 88.0 H Band Neutrophils % 2.0 Lymphocytes % 5.0 L Monocytes % 4.0 Basophils % 1.0 Neutrophils # 8.5 H Lymphocytes # 0.5 L Monocytes # 0.4 Basophils # 0.1 Platelet Estimate PLT APPEAR ADEQUATE Blood Urea Nitrogen 6 L Creatinine 0.53 Medications Medications Current Medications Senna/Docusate Sodium (Senokot-S) 1 tab BID PO Last administered on 07/26/16 09:11; Admin Dose 1 TAB; Start 07/25/16 at 09:00 Magnesium Hydroxide (Milk Of Mag) 30 ml BID PRN PO CONSTIPATION; Start at 00:00 Magnesium Hydroxide (Milk Of Mag) 30 ml HS PO ; Start 07/26/16 at 21:00 Bisacodyl (Dulcolax Supp) 10 mg DAILY PRN [place] CONSTIPATION; Start 07/25/16 at 00 :00 Sodium Biphosphate/ Sodium Phosphate (Fleet Enema) 133 ml DAILY PRN [place] CONSTIPATION; Start 07/25/16 at 00:00 Acetaminophen (Tylenol Tab) 1,000 mg Q4H PRN PO TEMP GREATER THAN 100.4F Last administered on 07/25/16 08:10; Admin Dose 1,000 MG; Start 07/25/16 at 00:00 Oxycodone/ Acetaminophen (Percocet (5/ 325)) 1 tab Q4H PRN PO PAIN; Start 07/25 at 00:00 Oxycodone/ Acetaminophen (Percocet (5/ 325)) 2 tab Q4H PRN PO PAIN; Start 07/25 at 00:00 Morphine Sulfate (morphine) 5 mg Q4H PRN IV PAIN LEVEL 7-10 Last administered on 07/26/16 15:57; Admin Dose 2 MG; Start 07/25/16 at 00:00 Ondansetron HCl (Zofran Inj) 4 mg Q4H PRN IV NAUSEA AND/OR VOMITING Last administered on 07/26/16 16:07; Admin Dose 4 MG; Start 07/25/16 at 00:00 Diphenhydramine HCl 25 mg 25 mg Q4H PRN PO ITCHING; Start 07/25/16 at 00:00 Dextrose/Lactated Ringer's (D5-Lr) 1,000 ml @ 75 mls/hr [id number] IV Last administered on 07/25/16 22:44; Admin Dose 75 MLS/HR; Start 07/25/16 at 08:00 Bisacodyl 10 mg 10 mg DAILY PRN PO CONSTIPATION Last administered on 07/26/16 10:11; Admin Dose 10 MG; Start 07/26/16 at 09:30 Vancomycin HCl/ Sodium Chloride (Vancocin/NS) 250 ml @ 83.333 mls/ hr Q12H IVPB ; Start 07/26/16 at 18:00 Miscellaneous Information (*Rx Drug Level Order Reminder*) 1 ONCE ONCE XX ; Start 07/27/16 at 05:00; Stop 07/27/16 at 05:01 Lidocaine 5 ml 5 ml ONCE SC ; Start 07/26/16 at 17:00; Stop 07/26/16 at 17:01 Ceftriaxone Sodium (Rocephin) 50 ml @ 100 mls/hr Q24H IVPB ; Start 07/26/16 at 16:30 MERLYN TAFOYA MD Jul 26, 2016 16:34
--- NOTE | 2016-07-26 16:53 | PN ---
DATE: 07/26/2016 SUBJECTIVE: Patient is alert, feels better, looks comfortable. She is afebrile. MICROBIOLOGY: Cultures are growing Staphylococcus aureus preliminary. Anaerobic culture negative. Also, preliminary urine culture growing gram-negative rods. ANTIMICROBIALS: The patient is on: 1. Vancomycin. 2. Zosyn. PHYSICAL EXAMINATION: GENERAL: Well-developed, middle-aged -[place] woman who is alert, in no distress. HEENT: Head atraumatic, normocephalic. Sclerae anicteric. Buccal mucosa pink. NECK: Supple. CHEST: Rise symmetrical. Breath sounds clear. HEART: S1, S2. ABDOMEN: Soft. Bowel sounds present. EXTREMITIES: Left lower extremity dressing intact. Wound VAC present. ASSESSMENT: 1. Left knee septic arthritis with culture growing Staphylococcus aureus, status post irrigation, d ebridement and partial synovectomy. 2. Urinary tract infection. 3. Systemic inflammatory response syndrome. 4. History of recent left knee surgery on 07/12/2016. PLAN: The patient remains stable. We are going to discontinue Zosyn and start her on Rocephin, francisco it for final urine cultures. We will await for final wound cultures, order PICC line. Patient will need to be on long-term IV antibiotics for septic joint treatment. If culture grows Staphylococcus aureus, oxacillin sensitive, we will send her on antibiotics for 4 weeks. If it is MRSA, she will require 6 weeks IV antibiotics. PICC line ordered. Above was discussed with Dr. Jenise Valle. Above was discussed with the patient at bedside. Dictated By: MARITZA DE PAZ DISEASE MANAGEMENT NURSE for JENISE LEONG MD NI/NTS Conf#: [id number] DID#: [id number]
[2016-07-26] MEDS ORDERED: LIDOCAINE 1% (MPF) 5 ML VIAL SC SCH (17:00)
[2016-07-26] MEDS: RIVAROXABAN 10 MG TABLET PO SCH (17:14)
[2016-07-26] MEDS: CEFTRIAXONE 1 GM/50 ML (PMX) 50 ML IVPB SCH (17:14)
[2016-07-26] MEDS: VANCOMYCIN 1.25 GM in SOD CHLORIDE 0.9% 250 ML IVPB SCH (18:52)
[2016-07-26] MEDS: MAGNESIUM HYDROXIDE 30ML CUP PO SCH ×2 (19:34→22:48)
[2016-07-26 20:32] LABS: ADD SCAN DIFF NO
[2016-07-26 20:43] LABS: BASOPHILS % 0.1 % (0.0-2.0); EOSINOPHILS % 0.1 % (0.0-7.0); HEMATOCRIT 28.5 % (37.0-47.0); HEMOGLOBIN 9.7 g/dl (12.0-16.0); LYMPHOCYTES # 1.6 10^3/ul (0.8-2.9); LYMPHOCYTES % 12.3 % (15.0-51.0); MEAN CORPUSCULAR HEMOGLOBIN 29.8 pg (29.0-33.0); MEAN CORPUSCULAR VOLUME 87.7 fl (82.0-101.0); MONOCYTE # 0.9 10^3/ul (0.3-0.9); MONOCYTES % 7.1 % (0.0-11.0); NEUTROPHIL # 10.6 10^3/ul (1.6-7.5); PLATELET COUNT 357 10^3/UL (140-415); RED BLOOD COUNT 3.25 10^6/ul (4.20-5.40); RED CELL DISTRIBUTION WIDTH 12.1 % (11.5-14.5); WHITE BLOOD COUNT 13.3 10^3/ul (4.8-10.8)
[2016-07-26] MEDS ORDERED: KETOROLAC 30 MG INJ IV STA (21:26)
[2016-07-27] VITALS (24 sets, daily range): BP systolic 105–127; BP diastolic 58–70; PULSE 72–104; RESP 11–20
[2016-07-27] MEDS: ONDANSETRON 4 MG INJ IV PRN ×4 (00:36→16:47)
[2016-07-27] MEDS: DEXTROSE 5%-LR 1,000 ML IV SCH ×3 (03:25→13:02)
[2016-07-27] MEDS: morphine 10 MG INJ IV PRN ×3 (04:40→16:50)
[2016-07-27] MEDS ORDERED: LIDOCAINE 2% (SDV) 5 ML INJ ONE (07:00)
[2016-07-27] MEDS ORDERED: GLYCOPYRROLATE 1 MG INJ ONE (07:00)
[2016-07-27] MEDS: VANCOMYCIN 1.25 GM in SOD CHLORIDE 0.9% 250 ML IVPB SCH (07:13)
[2016-07-27] MEDS ORDERED: BACITRACIN 50000 UNITS INJ ONE ×3 (07:25→10:00)
[2016-07-27] MEDS ORDERED: POLYMYXIN B 500000 UNIT INJ ONE ×3 (07:28→09:59)
[2016-07-27] MEDS ORDERED: FENTAnyl 50 MCG/ML VIAL ONE ×2 (07:31→08:28)
[2016-07-27] MEDS ORDERED: ONDANSETRON 4 MG INJ ONE (07:31)
[2016-07-27] MEDS ORDERED: VANCOMYCIN 1 GM INJ ONE (07:31)
[2016-07-27] MEDS ORDERED: CEFAZOLIN 1 GM INJ ONE (07:31)
[2016-07-27] MEDS ORDERED: PROPOFOL 20 ML ONE (07:31)
[2016-07-27] MEDS ORDERED: NEOSTIGMINE 3 MG/3 ML SYRINGE ONE (07:31)
[2016-07-27] MEDS ORDERED: ROCURONIUM 50 MG INJ ONE (07:31)
[2016-07-27] MEDS ORDERED: DEXAMETHASONE 4 MG/ML 1 ML INJ ONE (07:31)
[2016-07-27] MEDS ORDERED: MIDAZOLAM 1 MG/ML 2 ML INJ ONE (07:31)
[2016-07-27] MEDS ORDERED: EPHEDrine SULFATE 50 MG/5 ML SYG ONE (07:56)
[2016-07-27] MEDS ORDERED: LABETALOL HCL 20MG INJ ONE (08:18)
[2016-07-27] MEDS ORDERED: FENTAnyl 50 MCG/ML VIAL IV PRN ×3 (08:30)
[2016-07-27] MEDS ORDERED: ONDANSETRON 4 MG INJ IV PRN (08:30)
[2016-07-27] MEDS ORDERED: MEPERIDINE 25 MG INJ IV PRN (08:30)
[2016-07-27] MEDS ORDERED: MIDAZOLAM 1 MG/ML 2 ML INJ IV PRN (08:30)
[2016-07-27] MEDS ORDERED: LABETALOL HCL 20MG INJ IV PRN (08:30)
[2016-07-27] MEDS ORDERED: EPHEDrine SULFATE 50 MG/5 ML SYG IV PRN (08:30)
[2016-07-27] MEDS ORDERED: TRIMETHOBENZAMIDE 100 MG/ML VIAL IM PRN (08:30)
[2016-07-27] MEDS ORDERED: DIPHENHYDRAMINE 50 MG INJ IV PRN (08:30)
[2016-07-27] MEDS ORDERED: HYDROmorphONE (0.2 MG/ML) 10ML SYG IV PRN ×3 (08:30)
[2016-07-27] MEDS ORDERED: hydrALAzine 20 MG INJ IV PRN (08:30)
[2016-07-27] MEDS ORDERED: ROPIVACAINE 0.5 % 30 ML VIAL ONE (08:45)
[2016-07-27] MEDS ORDERED: BACITRACIN/POLYMYXIN 28.35 GM OINT TOP ONE (08:51)
[2016-07-27] MEDS ORDERED: METOCLOPRAMIDE 10 MG INJ ONE (08:55)
[2016-07-27] MEDS: SENNA/DOCUSATE NA (8.6MG/50MG) TAB PO SCH ×3 (09:00→20:02)
--- NOTE | 2016-07-27 09:45 | PN ---
Date/Time of Note Date/Time of Note DATE: 07/27/16 TIME: 09:41 Assessment/Plan VTE Prophylaxis VTE Prophylaxis Intervention: ambulation, other (Xarelto) Lines/Catheters IV Catheter Type (from Nrs): Peripheral IV Urinary Cath still in place: No Assessment/Plan Chief Complaint/Hosp Course s/p ACL reconstruction with Achilles allograft on 07/12/16, and s/p I&D with cultures on 07/25/16 and again on 07/27/16 Problems: Assessment/Plan Staph aureus post-operative infection s/p ACL reconstruction, now s/p I&D x 2 - Pain control: Percocet, Morphine - PT/OT, WBAT LLE, ok for ROM - SCD's/xarelto - ID: Staph aureus on cultures. Awaiting sensitivities. Awaiting PICC placement. Likely home on 6 weeks of IV Abx. Will re-check WBC and CRP tomorrow, continue to trend CRP. Continue Vanc and Rocephin, monitor trough and Cr. - OK for regular diet - Likely discharge Friday or Friday pending ID set up and Abx finalization. Subjective 24 Hr Interval Summary Subjective hx not possible: other (Post-op Note: ) Exam/Review of Systems Vital Signs Vitals Vital Signs Date Time Temp Pulse Resp B/P Pulse Ox O2 Delivery O2 Flow Rate FiO2 07/27/16 09:31 98.0 07/27/16 07:00 79 19 123/63 98 07/25/16 21:08 Room Air 07/25/16 20:34 2.0 Intake and Output 07/26/16 07/26/16 07/27/16 15:00 23:00 07:00 Intake Total 960 ml 1940 ml Balance 960 ml 1940 ml Exam Constitutional: alert, oriented Respiratory: normal air movement Cardiovascular: regular rate and rhythm Musculoskeletal: other (Improved effusion. Bandages clean and dry. NVID. ) Results Result Diagram: 07/26/16201407/26/1605 Results 24 hrs Laboratory Tests Test 07/26/16 20:15 07/27/16 05:19 White Blood Count 13.3 #H Red Blood Count 3.25 L Hemoglobin 9.7 L Hematocrit 28.5 L Mean Corpuscular Volume 87.7 Mean Corpuscular Hemoglobin 29.8 Mean Corpuscular Hemoglobin Concent 34.0 Red Cell Distribution Width 12.1 Platelet Count 357 # Mean Platelet Volume 9.0 Neutrophils % 80.0 H Lymphocytes % 12.3 L Monocytes % 7.1 Eosinophils % 0.1 Basophils % 0.1 Nucleated Red Blood Cells % 0.0 Neutrophils # 10.6 H Lymphocytes # 1.6 Monocytes # 0.9 Eosinophils # 0.0 Basophils # 0.0 Nucleated Red Blood Cells # 0.0 C-Reactive Protein 19.8 H Vancomycin Level Trough 9.0 L Medications Medications Current Medications Senna/Docusate Sodium (Senokot-S) 1 tab BID PO Last administered on 07/26/16 19:33; Admin Dose 1 TAB; Start 07/25/16 at 09:00 Magnesium Hydroxide (Milk Of Mag) 30 ml BID PRN PO CONSTIPATION; Start at 00:00 Magnesium Hydroxide (Milk Of Mag) 30 ml HS PO Last administered on 07/26/16 22 :48; Admin Dose 30 ML; Start 07/26/16 at 21:00 Bisacodyl (Dulcolax Supp) 10 mg DAILY PRN [place] CONSTIPATION; Start 07/25/16 at 00 :00 Sodium Biphosphate/ Sodium Phosphate (Fleet Enema) 133 ml DAILY PRN [place] CONSTIPATION; Start 07/25/16 at 00:00 Acetaminophen (Tylenol Tab) 1,000 mg Q4H PRN PO TEMP GREATER THAN 100.4F Last administered on 07/25/16 08:10; Admin Dose 1,000 MG; Start 07/25/16 at 00:00 Oxycodone/ Acetaminophen (Percocet (5/ 325)) 1 tab Q4H PRN PO PAIN; Start 07/25 at 00:00 Oxycodone/ Acetaminophen (Percocet (5/ 325)) 2 tab Q4H PRN PO PAIN Last administered on 07/26/16 21:11; Admin Dose 2 TAB; Start 07/25/16 at 00:00 Morphine Sulfate (morphine) 5 mg Q4H PRN IV PAIN LEVEL 7-10 Last administered on 07/27/16 04:40; Admin Dose 5 MG; Start 07/25/16 at 00:00 Ondansetron HCl (Zofran Inj) 4 mg Q4H PRN IV NAUSEA AND/OR VOMITING Last administered on 07/27/16 04:22; Admin Dose 4 MG; Start 07/25/16 at 00:00 Diphenhydramine HCl 25 mg 25 mg Q4H PRN PO ITCHING; Start 07/25/16 at 00:00 Dextrose/Lactated Ringer's (D5-Lr) 1,000 ml @ 75 mls/hr [id number] Last administered on 07/27/16 03:25; Admin Dose 75 MLS/HR; Start 07/25/16 at 08:00 Bisacodyl 10 mg 10 mg DAILY PRN PO CONSTIPATION Last administered on 07/26/16 10:11; Admin Dose 10 MG; Start 07/26/16 at 09:30 Vancomycin HCl 1.25 gm/Sodium Chloride 250 ml @ 83.333 mls/ hr Q12H IVPB Last administered on 07/27/16 07:13; Admin Dose 83.333 MLS/HR; Start 07/26/16 at 18: 00; Stop 07/27/16 at 10:00 Ceftriaxone Sodium (Rocephin) 50 ml @ 100 mls/hr Q24H IVPB Last administered on 07/26/16 17:14; Admin Dose 100 MLS/HR; Start 07/26/16 at 16:30 Vancomycin HCl PER PHARMACY DOSING NOTE XX ; Start 07/25/16 at 18:30 Vancomycin HCl/ Sodium Chloride (Vancocin/NS) 250 ml @ 83.333 mls/ hr Q12H IVPB ; Start 07/27/16 at 18:00 MERLYN TAFOYA MD Jul 27, 2016 09:45
--- NOTE | 2016-07-27 11:09 | OPR ---
DATE OF OPERATION: 07/27/2016 PREOPERATIVE DIAGNOSES: 1. Infection, left knee, status post anterior cruciate ligament reconstruction. 2. Status post anterior cruciate ligament reconstruction, left knee with Achilles tendon allograft. POSTOPERATIVE DIAGNOSES: 1. Infection, left knee, status post anterior cruciate ligament reconstruction. 2. Status post anterior cruciate ligament reconstruction, left knee with Achilles tendon allograft. OPERATION PERFORMED: 1. Arthroscopy of the left knee. 2. Irrigation, extensive debridement and synovectomy of the knee. 3. Open irrigation and debridement proximal tibial wound. SURGEON: Merlyn Valle MD. COURT INTERPRETER: Liz Álvarez MD ANESTHESIA: General. TOURNIQUET TIME: Zero. DESCRIPTION OF PROCEDURE: The patient taken to the operating room, placed in supine position. Sati sfactory general anesthesia was administered. The patient previously had a washout and debridement of her knee wound and intra-articular knee infection. She is taken back to the operating room now f or an additional irrigation and debridement inside the knee as well as on the proximal tibial wound. Her cultures have grown out Staph aureus. Her fever has come down and overall she is feeling much better. The left knee was prepped and draped in the usual manner. Standard arthroscopic portals were used. There was a lot of hematoma and some synovitis in the knee. There was no gross infection or purule nce as there was the first time we did the irrigation. A shaver was inserted. All the clots were r emoved. Synovectomy was performed. Some of the synovitis and clots were sent for additional cultur e and sensitivity. Fifteen liters of saline with polymyxin and Neosporin in the bags were run throu gh the knee in all the areas. All areas were debrided medially and laterally along the ACL graft. Once 15 liters had been run through, the knee looked very clean. Attention turned to the proximal tibial wound. The retention sutures, the remaining sutures were re moved. The wound looked clean as well. There was some residual from the vancomycin powder which wa s in place. The wound was irrigated with 6 liters of saline infiltrated with polymyxin and Neospori n. Vancomycin powder 1 gram was then inserted. The wounds were closed with #1 nylon over rubber brenda sters as well as 4-0 nylon interrupted. The knee arthroscopy portals were closed with 3-0 black nyl on. Compression dressing applied as well as the hinged knee brace. Patient taken to recovery room in stable condition. At the end of the procedure, the sponge and needle count was correct. Patient tolerated procedure well. Dictated By: MERLYN MULTANI/JUAN Conf#: [id number] DID#: [id number]
--- NOTE | 2016-07-27 13:31 | CONS ---
Date/Time of Note Date/Time of Note DATE: 07/27/16 TIME: 13:30 Assessment/Plan Assessment/Plan Chief Complaint/Hosp Course ID PROGRESS NOTE TOTAL ABX DAY # 4=> Vanco IV + Ceftriaxone s/p Zosyn 24H INTERVAL SUMMARY POD #0=> S/p 07/27/16 Knee Arthroscopy Wash-Out Pre and POSTOPERATIVE DIAGNOSES: 1. Infection, left knee, status post anterior cruciate ligament reconstruction. 2. Status post anterior cruciate ligament reconstruction, left knee with Achilles tendon allograft. OPERATION PERFORMED: 1. Arthroscopy of the left knee. 2. Irrigation, extensive debridement and synovectomy of the knee. 3. Open irrigation and debridement proximal tibial wound. * Awake, alert, oriented - doing well post-op, no fevers, chills, * MICRO (+)MRSA TISSUE (BIOPSY) CULTURE Final Organism 1 METHICILLIN RESISTANT S.AUREUS QUANTITY 1+ . MULTI DRUG RESISTANT ORGANISM * 07/24/16 ANAEROBIC CULTURE Final No anaerobe isolated at 72 hours * 07/25/16 ANAEROBIC CULTURE Preliminary No anaerobe isolated at 48 hours URINE CULTURE Final Organism 1 ESCHERICHIA COLI COLONY COUNT <10,000 CFU/ml Organism 2 STREPTOCOCCUS NON TYPEABLE COLONY COUNT 20,000 - 30,000 CFU/ml Beta Streptococcus not Group A maybe a potential pathogen E COLI M.I.C. RX --------- --- AMPICILLIN <=2 S CEFAZOLIN S CEFOTAXIME S CIPROFLOXACIN <=0.25 S GENTAMICIN <=1 S LEVOFLOXACIN <=0.12 S NITROFURANTOIN <=16 S TOBRAMYCIN <=1 S TRIMETHOPRIM/SULFAMETHOXAZOLE <=20 S PHYSICAL EXAMINATION: GENERAL: VSS, NAD HEENT: Unremarkable NECK: Supple, trach-> midline CHEST: Equal chest rise bilaterally, without dyspnea on observation HEART: Pulse RRR ABDOMEN: Soft, benign EXTREMITIES: Warm-> left knee DSG C/D/I SKIN: Warm, dry ID ASSESSMENT: 41 yo F w/hx of recent left knee surgery on 07/12/16 admitted with: 1. Left knee septic arthritis=> (+)MRSA * s/p 07/26/16 arthroscopy of the left knee, irrigation, debridement and partial synovectomy * s/p 07/27/16 arthroscopy of left knee, Irrigation, extensive debridement and synovectomy of the knee, w/open irrigation and debridement proximal tibial wound. 2. Systemic inflammatory response syndrome with leukocytosis elevated ESR, CRP 3. Low colony count bacteriuria ?early UTI vs contaminated sample=> Asymptomatic (-)MRSA Nares INVASIVES: * PIV ABX ALLERGIES: None to ABX CURRENT ABX: # 4=> Vanco IV + Ceftriaxone ID RECOMMENDATIONS: 1. PICC Line placement today pending 2. She will need 6 weeks Vanco IV for MRSA septic knee via PICC line 3. MRSA INPATIENT COLONIZATION PROPHY * -- Hibaclens bath QPM while inpatient * -- Bactroban to Bilateral nares while on inpatient status (preventive colonization) 4. ABX DC PLAN ORDER * DC CEFTRIAXONE in am 07/28/16 * May DC home when cleared by PMD -- on Vanco 1.5 GM IV Q 12 hours @ 0600 & 1800 w/continued dose per OP pharmacist until last day SEPTEMBER 07, 2016 * BASELINES: WT: 65.31 kg, S.Creatinine 0.53, Vanco Trough 0519 am 07/27/16 9.0 * Vanco IV dose increased 07/27/16 1800 dose to 1.5GM Q12 hours * Next lab draw OP HH RN due 07/28/16 prior to 1800 dose = BUN/S.Creatinine & Vanco trough with results called to OP Pharmacist for continued dosing order. Thank you * Problems: Consultation Date/Type/Reason Admit Date/Time Jul 24, 2016 at 17:51 Initial Consult Date Exam/Review of Systems Vital Signs Vitals Vital Signs Date Time Temp Pulse Resp B/P Pulse Ox O2 Delivery O2 Flow Rate FiO2 07/27/16 12:08 95 07/27/16 11:10 97.9 19 123/63 98 07/27/16 10:11 Room Air 07/27/16 09:46 2.0 Intake and Output 07/26/16 07/26/16 07/27/16 15:00 23:00 07:00 Intake Total 960 ml 1940 ml Balance 960 ml 1940 ml Results Result Diagram: 07/26/16201407/26/16 0605 Results 24 hrs Laboratory Tests Test 07/26/16 20:15 07/27/16 05:19 White Blood Count 13.3 #H Red Blood Count 3.25 L Hemoglobin 9.7 L Hematocrit 28.5 L Mean Corpuscular Volume 87.7 Mean Corpuscular Hemoglobin 29.8 Mean Corpuscular Hemoglobin Concent 34.0 Red Cell Distribution Width 12.1 Platelet Count 357 # Mean Platelet Volume 9.0 Neutrophils % 80.0 H Lymphocytes % 12.3 L Monocytes % 7.1 Eosinophils % 0.1 Basophils % 0.1 Nucleated Red Blood Cells % 0.0 Neutrophils # 10.6 H Lymphocytes # 1.6 Monocytes # 0.9 Eosinophils # 0.0 Basophils # 0.0 Nucleated Red Blood Cells # 0.0 C-Reactive Protein 19.8 H Vancomycin Level Trough 9.0 L Medications Medications Current Medications Senna/Docusate Sodium (Senokot-S) 1 tab BID PO Last administered on 07/27/16 12:56; Admin Dose 1 TAB; Start 07/25/16 at 09:00 Magnesium Hydroxide (Milk Of Mag) 30 ml BID PRN PO CONSTIPATION; Start at 00:00 Magnesium Hydroxide (Milk Of Mag) 30 ml HS PO Last administered on 07/26/16 22 :48; Admin Dose 30 ML; Start 07/26/16 at 21:00 Bisacodyl (Dulcolax Supp) 10 mg DAILY PRN [place] CONSTIPATION; Start 07/25/16 at 00 :00 Sodium Biphosphate/ Sodium Phosphate (Fleet Enema) 133 ml DAILY PRN [place] CONSTIPATION; Start 07/25/16 at 00:00 Acetaminophen (Tylenol Tab) 1,000 mg Q4H PRN PO TEMP GREATER THAN 100.4F Last administered on 07/25/16 08:10; Admin Dose 1,000 MG; Start 07/25/16 at 00:00 Oxycodone/ Acetaminophen (Percocet (5/ 325)) 1 tab Q4H PRN PO PAIN; Start 07/25 at 00:00 Oxycodone/ Acetaminophen (Percocet (5/ 325)) 2 tab Q4H PRN PO PAIN Last administered on 07/26/16 21:11; Admin Dose 2 TAB; Start 07/25/16 at 00:00 Morphine Sulfate (morphine) 5 mg Q4H PRN IV PAIN LEVEL 7-10 Last administered on 07/27/16 12:57; Admin Dose 5 MG; Start 07/25/16 at 00:00 Ondansetron HCl (Zofran Inj) 4 mg Q4H PRN IV NAUSEA AND/OR VOMITING Last administered on 07/27/16 12:57; Admin Dose 4 MG; Start 07/25/16 at 00:00 Diphenhydramine HCl 25 mg 25 mg Q4H PRN PO ITCHING; Start 07/25/16 at 00:00 Dextrose/Lactated Ringer's (D5-Lr) 1,000 ml @ 75 mls/hr [id number] IV Last administered on 07/27/16 11:00; Admin Dose 75 MLS/HR; Start 07/25/16 at 08:00 Bisacodyl 10 mg 10 mg DAILY PRN PO CONSTIPATION Last administered on 07/26/16 10:11; Admin Dose 10 MG; Start 07/26/16 at 09:30 Ceftriaxone Sodium (Rocephin) 50 ml @ 100 mls/hr Q24H IVPB Last administered on 07/26/16 17:14; Admin Dose 100 MLS/HR; Start 07/26/16 at 16:30 Vancomycin HCl PER PHARMACY DOSING NOTE XX ; Start 07/25/16 at 18:30 Vancomycin HCl/ Sodium Chloride (Vancocin/NS) 250 ml @ 83.333 mls/ hr Q12H IVPB ; Start 07/27/16 at 18:00 JACK KENNEDY NP Jul 27, 2016 13:31
[2016-07-27] MEDS: CEFTRIAXONE 1 GM/50 ML (PMX) 50 ML IVPB SCH (16:55)
[2016-07-27] MEDS ORDERED: LIDOCAINE 1% (MPF) 5 ML VIAL INJ ONE (17:00)
--- NOTE | 2016-07-27 18:34 | RADRPT ---
PROCEDURE: XR Chest. CLINICAL INDICATION: PICC placement. TECHNIQUE: Single frontal chest x-ray. COMPARISON: Exam dated 07/24/2016. FINDINGS: There has been interval placement of a right-sided PICC with its tip overlying the right atrium. The cardiomediastinal silhouette is within normal limits. The lungs are clear without focal consolidat ion, effusion, or pneumothorax. There are no acute osseous abnormalities. IMPRESSION: 1. Right-sided PICC tip overlying the right atrium. 2. No acute cardiopulmonary abnormality. RPTAT: QQ .Damon Rice MD, MD Date Time Electronically viewed and signed by .Damon Rice MD, on 07/27/2016 18:34 .P/
--- NOTE | 2016-07-27 18:36 | RADRPT ---
PROCEDURE: XR Chest. CLINICAL INDICATION: PICC placement. TECHNIQUE: Single frontal chest x-ray. COMPARISON: Exam dated 07/27/2016 at 1820 hours. FINDINGS: A left-sided PICC remains in place with its tip overlying the right atrium, curving medially towards the tricuspid valve. The cardiomediastinal silhouette is within normal limits. The lungs are clear without focal consolidation, effusion, or pneumothorax. There are no acute osseous abnormalities. IMPRESSION: 1. Right-sided PICC tip in the right atrium curving towards the tricuspid valve. The PICC can be r etracted approximately 3 cm. 2. No acute cardiopulmonary abnormality. RPTAT: QQ .Damon Rice MD, Date Time Electronically viewed and signed by .Damon Rice MD, MD on 07/27/2016 18:35 .P/
--- NOTE | 2016-07-27 18:43 | RADRPT ---
PROCEDURE: XR Chest. CLINICAL INDICATION: PICC readjustment. TECHNIQUE: Single frontal chest x-ray. COMPARISON: Exam dated 07/27/2016. FINDINGS: The pain is been mildly retracted with its tip now just below the superior cavoatrial junction overl julianna the right atrium. The cardiomediastinal silhouette is within normal limits. The lungs are richar r without focal consolidation, effusion, or pneumothorax. There are no acute osseous abnormalities. IMPRESSION: 1. Well-positioned left-sided PICC tip overlying the right atrium. 2. No acute cardiopulmonary abnormality. RPTAT: QQ .Damon Rice MD, MD Date Time Electronically viewed and signed by .Damon Rice MD, on 07/27/2016 18:42 .P/
[2016-07-27] MEDS: RIVAROXABAN 10 MG TABLET PO SCH (18:55)
[2016-07-27] MEDS: VANCOMYCIN 1.5 GM in SOD CHLORIDE 0.9% 250 ML IVPB SCH (18:59)
--- NOTE | 2016-07-27 19:07 | RADRPT ---
PROCEDURE: US guidance for PICC line CLINICAL INDICATION: PICC line placement TECHNIQUE: Multiple real-time images were acquired of the patient's arm utilizing a high resolutio n transducer. This was performed by the PICC line nurse for venous access. COMPARISON: None FINDINGS: Ultrasound guidance for PICC line placement. IMPRESSION: Ultrasound guidance for PICC line placement. RPTAT: AA .Destin Draper MD, MD Date Time Electronically viewed and signed by .Destin Draper MD, on 07/27/2016 19:07 .S/
[2016-07-27] MEDS: MUPIROCIN 2% 22 GM OINT TOP SCH (20:02)
[2016-07-27] MEDS: ACETAMINOPHEN 500 MG TAB PO PRN (20:02)
[2016-07-28] VITALS (8 sets, daily range): BP systolic 99–116; BP diastolic 55–74; PULSE 75–110; RESP 16–20
[2016-07-28] MEDS: DEXTROSE 5%-LR 1,000 ML IV SCH ×2 (02:40→05:44)
[2016-07-28] MEDS: VANCOMYCIN 1.5 GM in SOD CHLORIDE 0.9% 250 ML IVPB SCH ×2 (05:43→18:19)
--- NOTE | 2016-07-28 07:44 | PN ---
Date/Time of Note Date/Time of Note DATE: 07/28/16 TIME: 07:41 Assessment/Plan VTE Prophylaxis VTE Prophylaxis Intervention: other (xarelto) Lines/Catheters IV Catheter Type (from Nrsg): PICC Line Central line still needed: Yes Urinary Cath still in place: No Reason Cath still needed: other (indicate) (6 weeks IV Abx) Assessment/Plan Chief Complaint/Hosp Course s/p ACL reconstruction with Achilles allograft on 07/12/16, and s/p I&D with cultures on 07/25/16 and again on 07/27/16 Problems: Assessment/Plan - Pain control - [place], Morphine PRN. - PT/OT, WBAT - Constipation: stool softeners, suppositories PRN - SCD's, Xarelto - ID: Vancomycin 1.25 g q12. PICC in place. Ordered CRP and WBC to evaluate today. - Discharge: Pending home health Abx set up, likely Friday - Shower chair Subjective 24 Hr Interval Summary Subjective hx not possible: other (no acute issues overnight. c/o right thigh swelling. ) Exam/Review of Systems Vital Signs Vitals Vital Signs Date Time Temp Pulse Resp B/P Pulse Ox O2 Delivery O2 Flow Rate FiO2 07/28/16 07:08 98.0 89 18 114/62 98 07/27/16 10:11 Room Air 07/27/16 09:46 2.0 Intake and Output 07/27/16 07/27/16 07/28/16 15:00 23:00 07:00 Intake Total 1600 ml 2350 ml 1308.33 ml Output Total 5 ml Balance 1595 ml 2350 ml 1308.33 ml Exam Constitutional: alert, oriented Respiratory: normal air movement Cardiovascular: regular rate and rhythm Results Result Diagram: 07/26/16201407/26/16 0605 Medications Medications Current Medications Senna/Docusate Sodium (Senokot-S) 1 tab BID PO Last administered on 07/27/16 20:02; Admin Dose 1 TAB; Start 07/25/16 at 09:00 Magnesium Hydroxide (Milk Of Mag) 30 ml BID PRN PO CONSTIPATION Last administered on 07/27/16 20:02; Admin Dose 30 ML; Start 07/25/16 at 00:00 Magnesium Hydroxide (Milk Of Mag) 30 ml HS PO Last administered on 07/26/16 22 :48; Admin Dose 30 ML; Start 07/26/16 at 21:00 Bisacodyl (Dulcolax Supp) 10 mg DAILY PRN [place] CONSTIPATION; Start 07/25/16 at 00 :00 Sodium Biphosphate/ Sodium Phosphate (Fleet Enema) 133 ml DAILY PRN [place] CONSTIPATION; Start 07/25/16 at 00:00 Acetaminophen (Tylenol Tab) 1,000 mg Q4H PRN PO TEMP GREATER THAN 100.4F Last administered on 07/27/16 20:02; Admin Dose 1,000 MG; Start 07/25/16 at 00:00 Oxycodone/ Acetaminophen (Percocet (5/ 325)) 1 tab Q4H PRN PO PAIN; Start 07/25 at 00:00 Oxycodone/ Acetaminophen (Percocet (5/ 325)) 2 tab Q4H PRN PO PAIN Last administered on 07/26/16 21:11; Admin Dose 2 TAB; Start 07/25/16 at 00:00 Morphine Sulfate (morphine) 5 mg Q4H PRN IV PAIN LEVEL 7-10 Last administered on 07/27/16 16:50; Admin Dose 5 MG; Start 07/25/16 at 00:00 Ondansetron HCl (Zofran Inj) 4 mg Q4H PRN IV NAUSEA AND/OR VOMITING Last administered on 07/27/16 16:47; Admin Dose 4 MG; Start 07/25/16 at 00:00 Diphenhydramine HCl 25 mg 25 mg Q4H PRN PO ITCHING; Start 07/25/16 at 00:00 Dextrose/Lactated Ringer's (D5-Lr) 1,000 ml @ 75 mls/hr [id number] IV Last administered on 07/28/16 05:44; Admin Dose 75 MLS/HR; Start 07/25/16 at 08:00 Bisacodyl 10 mg 10 mg DAILY PRN PO CONSTIPATION Last administered on 07/26/16 10:11; Admin Dose 10 MG; Start 07/26/16 at 09:30 Ceftriaxone Sodium (Rocephin) 50 ml @ 100 mls/hr Q24H IVPB Last administered on 07/27/16 16:55; Admin Dose 100 MLS/HR; Start 07/26/16 at 16:30 Vancomycin HCl PER PHARMACY DOSING NOTE XX ; Start 07/25/16 at 18:30 Vancomycin HCl/ Sodium Chloride (Vancocin/NS) 250 ml @ 83.333 mls/ hr Q12H IVPB Last administered on 07/28/16t 05:43; Admin Dose 83.333 MLS/HR; Start at 18:00 Mupirocin (Bactroban) 1 applic BID TOP ; Start 07/27/16 at 21:00 Acetaminophen/ Hydrocodone Bitart ([place] (5/325)) 1 tab Q4H PRN GTB PAIN LEVEL 1-5; Start 07/27/16 at 16:30 Acetaminophen/ Hydrocodone Bitart ([place] (5/325)) 2 tab Q4H PRN PO PAIN LEVEL 6 -10; Start 07/27/16 at 16:30 IV Flush (NS 10 ml) 10 ml PRN PRN IV FLUSH LINE; Start 07/27/16 at 20:00 MERLYN TAFOYA MD Jul 28, 2016 07:44
[2016-07-28] MEDS: ACETAMINOPHEN 500 MG TAB PO PRN ×3 (08:19→21:05)
[2016-07-28] MEDS: MUPIROCIN 2% 22 GM OINT TOP SCH ×2 (08:19→20:26)
[2016-07-28] MEDS: SENNA/DOCUSATE NA (8.6MG/50MG) TAB PO SCH ×2 (08:19→20:34)
[2016-07-28] MEDS: BISACODYL (EC) 5 MG TAB PO PRN (08:19)
[2016-07-28 11:28] LABS: ADD SCAN DIFF NO
[2016-07-28 11:31] LABS: BASOPHILS % 0.2 % (0.0-2.0); EOSINOPHILS % 0.4 % (0.0-7.0); HEMATOCRIT 27.7 % (37.0-47.0); HEMOGLOBIN 8.8 g/dl (12.0-16.0); LYMPHOCYTES # 3.7 10^3/ul (0.8-2.9); LYMPHOCYTES % 34.8 % (15.0-51.0); MEAN CORPUSCULAR HEMOGLOBIN 28.6 pg (29.0-33.0); MEAN CORPUSCULAR HGB CONC 31.8 g/dl (32.0-37.0); MEAN CORPUSCULAR VOLUME 89.9 fl (82.0-101.0); MEAN PLATELET VOLUME 8.6 fl (7.4-10.4); MONOCYTE # 0.8 10^3/ul (0.3-0.9); MONOCYTES % 7.9 % (0.0-11.0); NEUTROPHIL # 5.9 10^3/ul (1.6-7.5); NEUTROPHILS % 56.3 % (39.0-77.0); PLATELET COUNT 332 10^3/UL (140-415); RED BLOOD COUNT 3.08 10^6/ul (4.20-5.40); RED CELL DISTRIBUTION WIDTH 12.8 % (11.5-14.5); WHITE BLOOD COUNT 10.5 10^3/ul (4.8-10.8)
[2016-07-28] MEDS: CEFTRIAXONE 1 GM/50 ML (PMX) 50 ML IVPB SCH (17:15)
[2016-07-28] MEDS: RIVAROXABAN 10 MG TABLET PO SCH (17:20)
[2016-07-28] MEDS: MAGNESIUM HYDROXIDE 30ML CUP PO SCH (20:33)
--- NOTE | 2016-07-28 20:57 | CONS ---
Date/Time of Note Date/Time of Note DATE: 07/28/16 TIME: 20:50 Assessment/Plan Assessment/Plan Chief Complaint/Hosp Course ID PROGRESS NOTE TOTAL ABX DAY # 5=> Vanco IV + Ceftriaxone s/p Zosyn 24H INTERVAL SUMMARY POD #1=> S/p 07/27/16 Knee Arthroscopy Wash-Out =(+)MRSA septic knee * MICRO (+)MRSA TISSUE (BIOPSY) CULTURE Final Organism 1 METHICILLIN RESISTANT S.AUREUS QUANTITY 1+ . MULTI DRUG RESISTANT ORGANISM * 07/24/16 ANAEROBIC CULTURE Final No anaerobe isolated at 72 hours * 07/25/16 ANAEROBIC CULTURE Final No anaerobe isolated at 72 hours URINE CULTURE Final Organism 1 ESCHERICHIA COLI COLONY COUNT <10,000 CFU/ml Organism 2 STREPTOCOCCUS NON TYPEABLE COLONY COUNT 20,000 - 30,000 CFU/ml Beta Streptococcus not Group A maybe a potential pathogen E COLI M.I.C. RX --------- --- AMPICILLIN <=2 S CEFAZOLIN S CEFOTAXIME S CIPROFLOXACIN <=0.25 S GENTAMICIN <=1 S LEVOFLOXACIN <=0.12 S NITROFURANTOIN <=16 S TOBRAMYCIN <=1 S TRIMETHOPRIM/SULFAMETHOXAZOLE <=20 S PHYSICAL EXAMINATION: GENERAL: VSS, NAD HEENT: Unremarkable NECK: Supple, trach-> midline CHEST: Equal chest rise bilaterally, without dyspnea on observation HEART: Pulse RRR ABDOMEN: Soft, benign EXTREMITIES: Warm-> left knee DSG C/D/I SKIN: Warm, dry ID ASSESSMENT: 41 yo F w/hx of recent left knee surgery on 07/12/16 admitted with: 1. Left knee septic arthritis=> (+)MRSA * s/p 07/26/16 arthroscopy of the left knee, irrigation, debridement and partial synovectomy * s/p 07/27/16 arthroscopy of left knee, Irrigation, extensive debridement and synovectomy of the knee, w/open irrigation and debridement proximal tibial wound. 2. Systemic inflammatory response syndrome with leukocytosis elevated ESR, CRP * 07/28 ESR 60 (prior 54) * 07/28 CRP 5.6 (improved from 19.8) 3. Low colony count bacteriuria ?early UTI vs contaminated sample=> Asymptomatic 4. Constipation - opioid induced (-)MRSA Nares INVASIVES: * PICC Line-> 07/27/16 ABX ALLERGIES: None to ABX CURRENT ABX: # 5=> Vanco IV + Ceftriaxone ID RECOMMENDATIONS: 1. DC pending HH arrangement by supervisor case loading -- likely Friday 2. She will need 6 weeks Vanco IV for MRSA septic knee via PICC line 3. MRSA INPATIENT COLONIZATION PROPHY * -- Hibaclens bath QPM while inpatient * -- Bactroban to Bilateral nares while on inpatient status (preventive colonization) 4. ABX DC PLAN ORDER * DC CEFTRIAXONE at time of DC home * May DC home when cleared by PMD -- on Vanco 1.5 GM IV Q 12 hours @ 0600 & 1800 w/continued dose per OP pharmacist until last day SEPTEMBER 07, 2016 * BASELINES: WT: 65.31 kg, S.Creatinine 0.53, Vanco Trough 0519 am 07/27/16 9.0 * Vanco IV dose increased 07/27/16 1800 dose to 1.5GM Q12 hours * Next lab draw OP HH RN due 07/28/16 prior to 1800 dose = BUN/S.Creatinine & Vanco trough with results called to OP Pharmacist for continued dosing order. Problems: Consultation Date/Type/Reason Admit Date/Time Jul 24, 2016 at 17:51 Exam/Review of Systems Vital Signs Vitals Vital Signs Date Time Temp Pulse Resp B/P Pulse Ox O2 Delivery O2 Flow Rate FiO2 07/28/16 19:56 98.9 91 18 116/74 93 07/28/16 12:05 Room Air 07/27/16 09:46 2.0 Intake and Output 07/27/16 07/27/16 07/28/16 15:00 23:00 07:00 Intake Total 1600 ml 2350 ml 1308.33 ml Output Total 5 ml Balance 1595 ml 2350 ml 1308.33 ml Results Result Diagram: 07/28/16 1117 07/26/16 0605 Results 24 hrs Laboratory Tests Test 07/28/16 11:17 White Blood Count 10.5 # Red Blood Count 3.08 L Hemoglobin 8.8 L Hematocrit 27.7 L Mean Corpuscular Volume 89.9 Mean Corpuscular Hemoglobin 28.6 L Mean Corpuscular Hemoglobin Concent 31.8 L Red Cell Distribution Width 12.8 Platelet Count 332 Mean Platelet Volume 8.6 Neutrophils % 56.3 Lymphocytes % 34.8 Monocytes % 7.9 Eosinophils % 0.4 Basophils % 0.2 Nucleated Red Blood Cells % 0.0 Neutrophils # 5.9 Lymphocytes # 3.7 H Monocytes # 0.8 Eosinophils # 0.0 Basophils # 0.0 Nucleated Red Blood Cells # 0.0 Erythrocyte Sedimentation Rate 60 H C-Reactive Protein 5.6 H Medications Medications Current Medications Senna/Docusate Sodium (Senokot-S) 1 tab BID PO Last administered on 07/28/16 08:19; Admin Dose 1 TAB; Start 07/25/16 at 09:00 Magnesium Hydroxide (Milk Of Mag) 30 ml BID PRN PO CONSTIPATION Last administered on 07/27/16 20:02; Admin Dose 30 ML; Start 07/25/16 at 00:00 Magnesium Hydroxide (Milk Of Mag) 30 ml HS PO Last administered on 07/26/16 22 :48; Admin Dose 30 ML; Start 07/26/16 at 21:00 Bisacodyl (Dulcolax Supp) 10 mg DAILY PRN [place] CONSTIPATION; Start 07/25/16 at 00 :00 Sodium Biphosphate/ Sodium Phosphate (Fleet Enema) 133 ml DAILY PRN [place] CONSTIPATION; Start 07/25/16 at 00:00 Acetaminophen (Tylenol Tab) 1,000 mg Q4H PRN PO TEMP GREATER THAN 100.4F Last administered on 07/28/16 15:53; Admin Dose 1,000 MG; Start 07/25/16 at 00:00 Oxycodone/ Acetaminophen (Percocet (5/ 325)) 1 tab Q4H PRN PO PAIN; Start 07/25 at 00:00 Oxycodone/ Acetaminophen (Percocet (5/ 325)) 2 tab Q4H PRN PO PAIN Last administered on 07/26/16 21:11; Admin Dose 2 TAB; Start 07/25/16 at 00:00 Morphine Sulfate (morphine) 5 mg Q4H PRN IV PAIN LEVEL 7-10 Last administered on 07/27/16 16:50; Admin Dose 5 MG; Start 07/25/16 at 00:00 Ondansetron HCl (Zofran Inj) 4 mg Q4H PRN IV NAUSEA AND/OR VOMITING Last administered on 07/27/16 16:47; Admin Dose 4 MG; Start 07/25/16 at 00:00 Diphenhydramine HCl (Benadryl) 25 mg Q4H PRN PO ITCHING; Start 07/25/16 at 00: 00 Bisacodyl 10 mg 10 mg DAILY PRN PO CONSTIPATION Last administered on 07/28/16 08:19; Admin Dose 10 MG; Start 07/26/16 at 09:30 Ceftriaxone Sodium (Rocephin) 50 ml @ 100 mls/hr Q24H IVPB Last administered on 07/28/16 17:15; Admin Dose 100 MLS/HR; Start 07/26/16 at 16:30 Vancomycin HCl PER PHARMACY DOSING NOTE XX ; Start 07/25/16 at 18:30 Vancomycin HCl/ Sodium Chloride (Vancocin/NS) 250 ml @ 83.333 mls/ hr Q12H IVPB Last administered on 07/28/16 18:19; Admin Dose 83.333 MLS/HR; Start at 18:00 Mupirocin (Bactroban) 1 applic BID TOP Last administered on 07/28/16 20:26; Admin Dose 1 APPLIC; Start 07/27/16 at 21:00 Acetaminophen/ Hydrocodone Bitart ([place] (5/325)) 1 tab Q4H PRN GTB PAIN LEVEL 1-5; Start 07/27/16 at 16:30 Acetaminophen/ Hydrocodone Bitart ([place] (5/325)) 2 tab Q4H PRN PO PAIN LEVEL 6 -10; Start 07/27/16 at 16:30 IV Flush (NS 10 ml) 10 ml PRN PRN IV FLUSH LINE; Start 07/27/16 at 20:00 Miscellaneous Information (*Rx Drug Level Order Reminder*) VANCOMYCIN TROUGH AT 0500 ONCE ONCE XX ; Start 07/29/16 at 05:00; Stop 07/29/16 at 05:01 JACK KENNEDY NP Jul 28, 2016 20:57
[2016-07-28] MEDS: ONDANSETRON 4 MG INJ IV PRN (21:34)
[2016-07-28] MEDS: morphine 10 MG INJ IV PRN (21:39)
[2016-07-29 05:46] LABS: CREATININE 0.6 mg/dl (0.44-1.00)
[2016-07-29] MEDS: ACETAMINOPHEN 500 MG TAB PO PRN (06:10)
[2016-07-29] MEDS: ONDANSETRON 4 MG INJ IV PRN ×2 (06:23→14:48)
[2016-07-29] MEDS: morphine 10 MG INJ IV PRN ×2 (06:24→14:54)
[2016-07-29] MEDS: VANCOMYCIN 1.5 GM in SOD CHLORIDE 0.9% 250 ML IVPB SCH (06:27)
[2016-07-29] MEDS: SENNA/DOCUSATE NA (8.6MG/50MG) TAB PO SCH ×2 (08:37→20:20)
[2016-07-29] MEDS: MUPIROCIN 2% 22 GM OINT TOP SCH ×2 (08:38→20:20)
[2016-07-29 09:01] VITALS: BP 115/66; RESP 20
[2016-07-29] MEDS: VANCOMYCIN 1 GM in NS 250 ML IVPB SCH ×2 (14:54→23:01)
--- NOTE | 2016-07-29 15:13 | CONS ---
Date/Time of Note Date/Time of Note DATE: 07/29/16 TIME: 14:57 Assessment/Plan Assessment/Plan Chief Complaint/Hosp Course ID PROGRESS NOTE TOTAL ABX DAY # 6=> Vanco IV + Start Rifampin Ceftriaxone-> DC 24H INTERVAL SUMMARY POD #3 => S/p 07/27/16 Knee Arthroscopy Wash-Out =(+)MRSA septic knee * Still has knee pain "Knee feels like it is exploding" also c/o puffy body fluid retention due to the IVF with ABX administration, explained to pat and family in room and on speaker phone the need for IVF due to renal clearance. Ortho, myself, patient and family discussed the addition of Rifampin PO for improved MRSA coverage in setting ortho implants -- expect orange color urine, will stain contact lenses -- They express understanding/ agreement after discussion. * Ortho provider in room -- post of knee wound examined and per ortho looks very good. * Will add Rifampin 600mg PO * DC home pending IV ABX & wound care arrangements * Vanco IV dose changed today by [facility] Clinical Pharmacist * Date: 07/29/16 11:55 Type: Pharmacist Notes Vancomycin per Rx Vancomycin trough = 11 SCr = 0.60 Change Vancomycin to 1gm IV q8h for septic arthritis Recheck Vancomycin trough level soon PHYSICAL EXAMINATION: GENERAL: VSS, NAD HEENT: Unremarkable NECK: Supple, trach-> midline CHEST: Equal chest rise bilaterally, without dyspnea on observation HEART: Pulse RRR ABDOMEN: Soft, benign EXTREMITIES: Warm-> left knee DSG C/D/I SKIN: Warm, dry ID ASSESSMENT: 41 yo F w/hx of recent left knee surgery on 07/12/16 admitted with: 1. Left knee septic arthritis=> (+)MRSA * s/p 07/26/16 arthroscopy of the left knee, irrigation, debridement and partial synovectomy * s/p 07/27/16 arthroscopy of left knee, Irrigation, extensive debridement and synovectomy of the knee, w/open irrigation and debridement proximal tibial wound. 2. Systemic inflammatory response syndrome with leukocytosis elevated ESR, CRP * 07/28 ESR 60 (prior 54) * 07/28 CRP 5.6 (improved from 19.8) 3. Low colony count bacteriuria ?early UTI vs contaminated sample=> Asymptomatic 4. Constipation - opioid induced (-)MRSA Nares INVASIVES: * PICC Line-> 07/27/16 ABX ALLERGIES: None to ABX CURRENT ABX: # 6=> Vanco IV + Ceftriaxone-> DC ID RECOMMENDATIONS: 1. DC planning in process - given updated Vanco RX 2. She will need 6 weeks Vanco IV for MRSA septic knee via PICC line = LAST DOSE 09/07/2016 * Add Rifampin 600mg PO daily = last dose 09/07/2016 3. MRSA INPATIENT COLONIZATION PROPHY * -- Hibaclens bath QPM while inpatient * -- Bactroban to Bilateral nares while on inpatient status (preventive colonization) 4. ABX DC PLAN ORDER * May DC home when cleared by PMD -- on Vanco IV via PICC w/continued dose per OP pharmacist until last day SEPTEMBER 07, 2016 * BASELINES: WT: 65.31 kg, S.Creatinine 0.53, Vanco Trough 0519 am 07/27/16 9.0 * Vanco IV dose increased 07/27/16 1800 dose to 1.5GM Q12 hours * Vanco IV dose changed today by [facility] Clinical Pharmacist * Date: 07/29/16 11:55 Type: Pharmacist Notes Vancomycin per Rx Vancomycin trough = 11 07/30/15 0430 am SCr = 0.60 Change Vancomycin to 1gm IV q8h for septic arthritis => next dose due 07/19/16 @ 1500 => Then 07/29/16 @ 2100 => Then 07/30/16 @ 0700 w/ 07/30/16 * CHECK LABS S.Creatinine + Vanco Trough on 07/30/16 am prior to 0700 dose * Continued dosing per OP pharmacy Problems: Consultation Date/Type/Reason Admit Date/Time Jul 24, 2016 at 17:51 Exam/Review of Systems Vital Signs Vitals Vital Signs Date Time Temp Pulse Resp B/P Pulse Ox O2 Delivery O2 Flow Rate FiO2 07/29/16 09:01 98.3 88 20 115/66 97 07/28/16 12:05 Room Air 07/27/16 09:46 2.0 Intake and Output 07/28/16 07/28/16 07/29/16 14:59 22:59 06:59 Intake Total 750 ml 1000 ml 480 ml Balance 750 ml 1000 ml 480 ml Results Result Diagram: 07/28/16 1117 07/29/16 0439 Results 24 hrs Laboratory Tests Test 07/29/16 04:39 Blood Urea Nitrogen 4 L Creatinine 0.60 Vancomycin Level Trough 11.0 Medications Medications Current Medications Senna/Docusate Sodium (Senokot-S) 1 tab BID PO Last administered on 07/29/16 08:37; Admin Dose 1 TAB; Start 07/25/16 at 09:00 Magnesium Hydroxide (Milk Of Mag) 30 ml BID PRN PO CONSTIPATION Last administered on 07/27/16 20:02; Admin Dose 30 ML; Start 07/25/16 at 00:00 Magnesium Hydroxide (Milk Of Mag) 30 ml HS PO Last administered on 07/26/16 22 :48; Admin Dose 30 ML; Start 07/26/16 at 21:00 Bisacodyl (Dulcolax Supp) 10 mg DAILY PRN [place] CONSTIPATION; Start 07/25/16 at 00 :00 Sodium Biphosphate/ Sodium Phosphate (Fleet Enema) 133 ml DAILY PRN [place] CONSTIPATION; Start 07/25/16 at 00:00 Acetaminophen (Tylenol Tab) 1,000 mg Q4H PRN PO TEMP GREATER THAN 100.4F Last administered on 07/29/16 06:10; Admin Dose 1,000 MG; Start 07/25/16 at 00:00 Oxycodone/ Acetaminophen (Percocet (5/ 325)) 1 tab Q4H PRN PO PAIN; Start 07/25 at 00:00 Oxycodone/ Acetaminophen (Percocet (5/ 325)) 2 tab Q4H PRN PO PAIN Last administered on 07/26/16 21:11; Admin Dose 2 TAB; Start 07/25/16 at 00:00 Morphine Sulfate (morphine) 5 mg Q4H PRN IV PAIN LEVEL 7-10 Last administered on 07/29/16 06:24; Admin Dose 5 MG; Start 07/25/16 at 00:00 Ondansetron HCl (Zofran Inj) 4 mg Q4H PRN IV NAUSEA AND/OR VOMITING Last administered on 07/29/16 06:23; Admin Dose 4 MG; Start 07/25/16 at 00:00 Diphenhydramine HCl (Benadryl) 25 mg Q4H PRN PO ITCHING; Start 07/25/16 at 00: 00 Bisacodyl 10 mg 10 mg DAILY PRN PO CONSTIPATION Last administered on 07/28/16 08:19; Admin Dose 10 MG; Start 07/26/16 at 09:30 Ceftriaxone Sodium (Rocephin) 50 ml @ 100 mls/hr Q24H IVPB Last administered on 07/28/16 17:15; Admin Dose 100 MLS/HR; Start 07/26/16 at 16:30 Vancomycin HCl (Vanco Iv Per Pharmacy) PER PHARMACY DOSING NOTE XX ; Start 07/25 at 18:30 Mupirocin (Bactroban) 1 applic BID TOP Last administered on 07/29/16 08:38; Admin Dose 1 APPLIC; Start 07/27/16 at 21:00 Acetaminophen/ Hydrocodone Bitart ([place] (5/325)) 1 tab Q4H PRN GTB PAIN LEVEL 1-5; Start 07/27/16 at 16:30 Acetaminophen/ Hydrocodone Bitart ([place] (5/325)) 2 tab Q4H PRN PO PAIN LEVEL 6 -10; Start 07/27/16 at 16:30 IV Flush 10 ml 10 ml PRN PRN IV FLUSH LINE; Start 07/27/16 at 20:00 Vancomycin HCl (Vancocin) 250 ml @ 125 mls/hr Q8H IVPB ; Start 07/29/16 at 15: 00 Miscellaneous Information (*Rx Drug Level Order Reminder*) VANCOMYCIN TROUGH AT 0600 ONCE ONCE XX ; Start 07/30/16 at 06:00; Stop 07/30/16 at 06:01 JACK KENNEDY NP Jul 29, 2016 15:09
--- NOTE | 2016-07-29 15:37 | PN ---
Date/Time of Note Date/Time of Note DATE: 07/29/16 TIME: 15:34 Assessment/Plan VTE Prophylaxis VTE Prophylaxis Intervention: ambulation, other (Xarelto) Lines/Catheters IV Catheter Type (from Nrsg): PICC Line Central line still needed: Yes Urinary Cath still in place: No Assessment/Plan Chief Complaint/Hosp Course POD# 2 s/p I&D x 2 of left knee MRSA infection. Problems: Assessment/Plan - Pain control: Limit IV pain medications. [place] 1-2 tabs, PO q4 hours PRN pain. - SCD's, Xarelto - PT/OT, WBAT LLE - ID: Vancomycin, just spoke to ID re: adding Rifampin, will likely add given retained hardware. CRP improved from 19 to 5. WBC to 10 today. - Dispo: pending ID, Dr. Valle; likely later today or tomorrow. Liz Edwards Subjective 24 Hr Interval Summary Subjective hx not possible: other Exam/Review of Systems Vital Signs Vitals Vital Signs Date Time Temp Pulse Resp B/P Pulse Ox O2 Delivery O2 Flow Rate FiO2 07/29/16 09:01 98.3 88 20 115/66 97 07/28/16 12:05 Room Air 07/27/16 09:46 2.0 Intake and Output 07/28/16 07/28/16 07/29/16 15:00 23:00 07:00 Intake Total 750 ml 1000 ml 480 ml Balance 750 ml 1000 ml 480 ml Exam No acute events. Having pain. Respiratory: normal air movement Cardiovascular: regular rate and rhythm Musculoskeletal: other (LLE: Dressing changed. Wounds dry, no drainage, no erythema. Knee with only small effusion. NVID. ) Results Result Diagram: 07/28/16 1117 07/29/16 0439 Results 24 hrs Laboratory Tests Test 07/29/16 04:39 Blood Urea Nitrogen 4 L Creatinine 0.60 Vancomycin Level Trough 11.0 Medications Medications Current Medications Senna/Docusate Sodium (Senokot-S) 1 tab BID PO Last administered on 07/29/16 08:37; Admin Dose 1 TAB; Start 07/25/16 at 09:00 Magnesium Hydroxide (Milk Of Mag) 30 ml BID PRN PO CONSTIPATION Last administered on 07/27/16 20:02; Admin Dose 30 ML; Start 07/25/16 at 00:00 Magnesium Hydroxide (Milk Of Mag) 30 ml HS PO Last administered on 07/26/16 22 :48; Admin Dose 30 ML; Start 07/26/16 at 21:00 Bisacodyl (Dulcolax Supp) 10 mg DAILY PRN [place] CONSTIPATION; Start 07/25/16 at 00 :00 Sodium Biphosphate/ Sodium Phosphate (Fleet Enema) 133 ml DAILY PRN [place] CONSTIPATION; Start 07/25/16 at 00:00 Acetaminophen (Tylenol Tab) 1,000 mg Q4H PRN PO TEMP GREATER THAN 100.4F Last administered on 07/29/16 06:10; Admin Dose 1,000 MG; Start 07/25/16 at 00:00 Oxycodone/ Acetaminophen (Percocet (5/ 325)) 1 tab Q4H PRN PO PAIN; Start 07/25 at 00:00 Oxycodone/ Acetaminophen (Percocet (5/ 325)) 2 tab Q4H PRN PO PAIN Last administered on 07/26/16 21:11; Admin Dose 2 TAB; Start 07/25/16 at 00:00 Morphine Sulfate (morphine) 5 mg Q4H PRN IV PAIN LEVEL 7-10 Last administered on 07/29/16 14:54; Admin Dose 5 MG; Start 07/25/16 at 00:00 Ondansetron HCl (Zofran Inj) 4 mg Q4H PRN IV NAUSEA AND/OR VOMITING Last administered on 07/29/16 14:48; Admin Dose 4 MG; Start 07/25/16 at 00:00 Diphenhydramine HCl (Benadryl) 25 mg Q4H PRN PO ITCHING; Start 07/25/16 at 00: 00 Bisacodyl 10 mg 10 mg DAILY PRN PO CONSTIPATION Last administered on 07/28/16 08:19; Admin Dose 10 MG; Start 07/26/16 at 09:30 Ceftriaxone Sodium (Rocephin) 50 ml @ 100 mls/hr Q24H IVPB Last administered on 07/28/16 17:15; Admin Dose 100 MLS/HR; Start 07/26/16 at 16:30 Vancomycin HCl (Vanco Iv Per Pharmacy) PER PHARMACY DOSING NOTE XX ; Start 07/25 at 18:30 Mupirocin (Bactroban) 1 applic BID TOP Last administered on 07/29/16 08:38; Admin Dose 1 APPLIC; Start 07/27/16 at 21:00 Acetaminophen/ Hydrocodone Bitart ([place] (5/325)) 1 tab Q4H PRN GTB PAIN LEVEL 1-5; Start 07/27/16 at 16:30 Acetaminophen/ Hydrocodone Bitart ([place] (5/325)) 2 tab Q4H PRN PO PAIN LEVEL 6 -10; Start 07/27/16 at 16:30 IV Flush 10 ml 10 ml PRN PRN IV FLUSH LINE; Start 07/27/16 at 20:00 Vancomycin HCl (Vancocin) 250 ml @ 125 mls/hr Q8H IVPB Last administered on 14:54; Admin Dose 125 MLS/HR; Start 07/29/16 at 15:00 Miscellaneous Information (*Rx Drug Level Order Reminder*) VANCOMYCIN TROUGH AT 0600 ONCE ONCE XX ; Start 07/30/16 at 06:00; Stop 07/30/16 at 06:01 LIZ EDWARDS MD Jul 29, 2016 15:37
[2016-07-29] MEDS: HYDROCODONE/APAP (5/325) TAB PO PRN ×2 (16:37→20:20)
[2016-07-29] MEDS: RIFAMPIN 300 MG CAP PO SCH (17:30)
[2016-07-29] MEDS: RIVAROXABAN 10 MG TABLET PO SCH (17:31)
[2016-07-29 20:17] VITALS: BP 116/65; RESP 18
[2016-07-29] MEDS: MAGNESIUM HYDROXIDE 30ML CUP PO SCH (21:00)
[2016-07-30] MEDS: HYDROCODONE/APAP (5/325) TAB PO PRN ×2 (01:06→06:19)
[2016-07-30 07:33] VITALS: BP 108/60; RESP 18
[2016-07-30] MEDS: VANCOMYCIN 1 GM in NS 250 ML IVPB SCH ×3 (07:37→23:30)
--- NOTE | 2016-07-30 08:43 | PN ---
Date/Time of Note Date/Time of Note DATE: 07/30/16 TIME: 08:36 Assessment/Plan VTE Prophylaxis VTE Prophylaxis Intervention: other (Xarelto) Lines/Catheters IV Catheter Type (from Nrsg): PICC Line Central line still needed: Yes Urinary Cath still in place: No Assessment/Plan Chief Complaint/Hosp Course s/p ACL reconstruction with Achilles allograft on 07/12/16, and s/p I&D with cultures on 07/25/16 and again on 07/27/16 Problems: Assessment/Plan - Pain controlled on [place] - Xarelto - PT/OT - Shower chair for home - ID: Vancomycin q8 hours, Rifampin - Discharge today after antibiotics and home health have been set up. - Follow up with Dr. Tafoya Subjective 24 Hr Interval Summary Subjective hx not possible: other (Much improved, no swelling ) Exam/Review of Systems Vital Signs Vitals Vital Signs Date Time Temp Pulse Resp B/P Pulse Ox O2 Delivery O2 Flow Rate FiO2 07/30/16 07:33 98.7 92 18 108/60 95 07/28/16 12:05 Room Air 07/27/16 09:46 2.0 Intake and Output 07/29/16 07/29/16 07/30/16 15:00 23:00 07:00 Intake Total 1460 ml 810 ml Balance 1460 ml 810 ml Exam Constitutional: alert, oriented Respiratory: normal air movement Cardiovascular: nl pulses Results Result Diagram: 07/28/16 1117 07/29/16 0439 Results 24 hrs Laboratory Tests Test 07/30/16 06:15 Vancomycin Level Trough 12.4 Medications Medications Current Medications Senna/Docusate Sodium (Senokot-S) 1 tab BID PO Last administered on 07/29/16 20:20; Admin Dose 1 TAB; Start 07/25/16 at 09:00 Magnesium Hydroxide (Milk Of Mag) 30 ml BID PRN PO CONSTIPATION Last administered on 07/27/16 20:02; Admin Dose 30 ML; Start 07/25/16 at 00:00 Magnesium Hydroxide (Milk Of Mag) 30 ml HS PO Last administered on 07/26/16 22 :48; Admin Dose 30 ML; Start 07/26/16 at 21:00 Bisacodyl (Dulcolax Supp) 10 mg DAILY PRN [place] CONSTIPATION; Start 07/25/16 at 00 :00 Sodium Biphosphate/ Sodium Phosphate (Fleet Enema) 133 ml DAILY PRN [place] CONSTIPATION; Start 07/25/16 at 00:00 Acetaminophen (Tylenol Tab) 1,000 mg Q4H PRN PO TEMP GREATER THAN 100.4F Last administered on 07/29/16 06:10; Admin Dose 1,000 MG; Start 07/25/16 at 00:00 Oxycodone/ Acetaminophen (Percocet (5/ 325)) 1 tab Q4H PRN PO PAIN; Start 07/25 at 00:00 Oxycodone/ Acetaminophen (Percocet (5/ 325)) 2 tab Q4H PRN PO PAIN Last administered on 07/26/16 21:11; Admin Dose 2 TAB; Start 07/25/16 at 00:00 Morphine Sulfate (morphine) 5 mg Q4H PRN IV PAIN LEVEL 7-10 Last administered on 07/29/16 14:54; Admin Dose 5 MG; Start 07/25/16 at 00:00 Ondansetron HCl (Zofran Inj) 4 mg Q4H PRN IV NAUSEA AND/OR VOMITING Last administered on 07/29/16 14:48; Admin Dose 4 MG; Start 07/25/16 at 00:00 Diphenhydramine HCl (Benadryl) 25 mg Q4H PRN PO ITCHING; Start 07/25/16 at 00: 00 Bisacodyl (Dulcolax) 10 mg DAILY PRN PO CONSTIPATION Last administered on 08:19; Admin Dose 10 MG; Start 07/26/16 at 09:30 Vancomycin HCl (Vanco Iv Per Pharmacy) PER PHARMACY DOSING NOTE XX ; Start 07/25 at 18:30 Mupirocin (Bactroban) 1 applic BID TOP Last administered on 07/29/16 20:20; Admin Dose 1 APPLIC; Start 07/27/16 at 21:00 Acetaminophen/ Hydrocodone Bitart ([place] (5/325)) 1 tab Q4H PRN GTB PAIN LEVEL 1-5; Start 07/27/16 at 16:30 Acetaminophen/ Hydrocodone Bitart ([place] (5/325)) 2 tab Q4H PRN PO PAIN LEVEL 6 -10 Last administered on 4/25/17at 06:19; Admin Dose 2 TAB; Start 07/27/16 at 16 :30 IV Flush 10 ml 10 ml PRN PRN IV FLUSH LINE Last administered on 07/29/16 04:44 ; Admin Dose 10 ML; Start 07/27/16 at 20:00 Vancomycin HCl (Vancocin) 250 ml @ 125 mls/hr Q8H IVPB Last administered on 07:37; Admin Dose 125 MLS/HR; Start 07/29/16 at 15:00 Rifampin (Rifampin) 600 mg DAILY PO Last administered on 07/29/16 17:30; Admin Dose 600 MG; Start 07/29/16 at 18:00 MERLYN TAFOYA MD Jul 30, 2016 08:43
[2016-07-30] MEDS: MUPIROCIN 2% 22 GM OINT TOP SCH ×2 (08:57→20:24)
[2016-07-30] MEDS: RIFAMPIN 300 MG CAP PO SCH (08:57)
[2016-07-30] MEDS: SENNA/DOCUSATE NA (8.6MG/50MG) TAB PO SCH ×2 (08:57→20:24)
[2016-07-30] MEDS: ONDANSETRON 4 MG INJ IV PRN (10:04)
[2016-07-30] MEDS ORDERED: ALTEPLASE (CATHFLO) 2 MG INJ CATHETER PRN (15:30)
[2016-07-30] MEDS: RIVAROXABAN 10 MG TABLET PO SCH (17:26)
[2016-07-30] MEDS: HYDROCODONE/APAP (5/325) TAB GTB PRN ×2 (17:27→23:35)
[2016-07-30 19:38] VITALS: BP 119/83; RESP 20
[2016-07-30] MEDS: MAGNESIUM HYDROXIDE 30ML CUP PO SCH (20:24)
--- NOTE | 2016-07-30 20:36 | CONS ---
Date/Time of Note Date/Time of Note DATE: 07/30/16 TIME: 20:32 Assessment/Plan Assessment/Plan Chief Complaint/Hosp Course ID PROGRESS NOTE TOTAL ABX DAY # 7=> Vanco IV + Rifampin Ceftriaxone-> DC 24H INTERVAL SUMMARY POD #4 => S/p 07/27/16 Knee Arthroscopy Wash-Out =(+)MRSA septic knee * s/p ACL reconstruction with Achilles allograft on 07/12/16, and s/p I&D with cultures on 07/25/16 and again on 07/27/16 * Patient was seen earlier today, note placed later - -today is her best day post op -- feeling very well and hopefull * DC planning once tonight's Vanco IV dose infused with labs prior PHYSICAL EXAMINATION: GENERAL: VSS, NAD HEENT: Unremarkable NECK: Supple, trach-> midline CHEST: Equal chest rise bilaterally, without dyspnea on observation HEART: Pulse RRR ABDOMEN: Soft, benign EXTREMITIES: Warm-> left knee DSG C/D/I SKIN: Warm, dry ID ASSESSMENT: 41 yo F w/hx of recent left knee surgery on 07/12/16 admitted with: 1. Left knee septic arthritis=> (+)MRSA * s/p 07/26/16 arthroscopy of the left knee, irrigation, debridement and partial synovectomy * s/p 07/27/16 arthroscopy of left knee, Irrigation, extensive debridement and synovectomy of the knee, w/open irrigation and debridement proximal tibial wound. 2. Systemic inflammatory response syndrome with leukocytosis elevated ESR, CRP * 07/28 ESR 60 (prior 54) * 07/28 CRP 5.6 (improved from 19.8) 3. Low colony count bacteriuria ?early UTI vs contaminated sample=> Asymptomatic 4. Constipation - opioid induced (-)MRSA Nares INVASIVES: * PICC Line-> 07/27/16 ABX ALLERGIES: None to ABX CURRENT ABX: # 7=> Vanco IV + Ceftriaxone-> DC ID RECOMMENDATIONS: 1. DC pending tonight after Vanco IV dose has completed. 2. ABX plan of care discussed = she will complete 6 weeks Vanco IV + Rifampin for (+)MRSA Septic Knee * -- all questions answered, patient to f/u with Dr. Valle Problems: Consultation Date/Type/Reason Admit Date/Time Jul 24, 2016 at 17:51 Exam/Review of Systems Vital Signs Vitals Vital Signs Date Time Temp Pulse Resp B/P Pulse Ox O2 Delivery O2 Flow Rate FiO2 07/30/16 19:38 98.7 92 20 119/83 97 07/28/16 12:05 Room Air 07/27/16 09:46 2.0 Intake and Output 07/29/16 07/29/16 07/30/16 15:00 23:00 07:00 Intake Total 1460 ml 810 ml Balance 1460 ml 810 ml Results Result Diagram: 07/28/16 1117 07/29/16 0439 Results 24 hrs Laboratory Tests Test 07/30/16 06:15 07/30/16 15:15 Vancomycin Level Trough 12.4 Bedside Glucose 100 Medications Medications Current Medications Senna/Docusate Sodium (Senokot-S) 1 tab BID PO Last administered on 07/30/16 20:24; Admin Dose 1 TAB; Start 07/25/16 at 09:00 Magnesium Hydroxide (Milk Of Mag) 30 ml BID PRN PO CONSTIPATION Last administered on 07/27/16 20:02; Admin Dose 30 ML; Start 07/25/16 at 00:00 Magnesium Hydroxide (Milk Of Mag) 30 ml HS PO Last administered on 07/30/16 20 :24; Admin Dose 30 ML; Start 07/26/16 at 21:00 Bisacodyl (Dulcolax Supp) 10 mg DAILY PRN [place] CONSTIPATION; Start 07/25/16 at 00 :00 Sodium Biphosphate/ Sodium Phosphate (Fleet Enema) 133 ml DAILY PRN [place] CONSTIPATION; Start 07/25/16 at 00:00 Acetaminophen (Tylenol Tab) 1,000 mg Q4H PRN PO TEMP GREATER THAN 100.4F Last administered on 07/29/16 06:10; Admin Dose 1,000 MG; Start 07/25/16 at 00:00 Oxycodone/ Acetaminophen (Percocet (5/ 325)) 1 tab Q4H PRN PO PAIN; Start 07/25 at 00:00 Oxycodone/ Acetaminophen (Percocet (5/ 325)) 2 tab Q4H PRN PO PAIN Last administered on 07/26/16 21:11; Admin Dose 2 TAB; Start 07/25/16 at 00:00 Morphine Sulfate (morphine) 5 mg Q4H PRN IV PAIN LEVEL 7-10 Last administered on 07/29/16 14:54; Admin Dose 5 MG; Start 07/25/16 at 00:00 Ondansetron HCl (Zofran Inj) 4 mg Q4H PRN IV NAUSEA AND/OR VOMITING Last administered on 07/30/16 10:04; Admin Dose 4 MG; Start 07/25/16 at 00:00 Diphenhydramine HCl (Benadryl) 25 mg Q4H PRN PO ITCHING; Start 07/25/16 at 00: 00 Bisacodyl (Dulcolax) 10 mg DAILY PRN PO CONSTIPATION Last administered on 08:19; Admin Dose 10 MG; Start 07/26/16 at 09:30 Vancomycin HCl (Vanco Iv Per Pharmacy) PER PHARMACY DOSING NOTE XX ; Start 07/25 at 18:30 Mupirocin (Bactroban) 1 applic BID TOP Last administered on 07/30/16 20:24; Admin Dose 1 APPLIC; Start 07/27/16 at 21:00 Acetaminophen/ Hydrocodone Bitart ([place] (5/325)) 1 tab Q4H PRN GTB PAIN LEVEL 1-5 Last administered on 07/30/16 17:27; Admin Dose 1 TAB; Start 07/27/16 at 16 :30 Acetaminophen/ Hydrocodone Bitart ([place] (5/325)) 2 tab Q4H PRN PO PAIN LEVEL 6 -10 Last administered on 07/30/16 06:19; Admin Dose 2 TAB; Start 07/27/16 at 16 :30 IV Flush 10 ml 10 ml PRN PRN IV FLUSH LINE Last administered on 07/29/16 04:44 ; Admin Dose 10 ML; Start 07/27/16 at 20:00 Vancomycin HCl (Vancocin) 250 ml @ 125 mls/hr Q8H IVPB Last administered on 15:16; Admin Dose 125 MLS/HR; Start 07/29/16 at 15:00 Rifampin (Rifampin) 600 mg DAILY PO Last administered on 07/30/16 08:57; Admin Dose 600 MG; Start 07/29/16 at 18:00 JACK KENNEDY NP Jul 30, 2016 20:36
[2016-07-31] VITALS (20 sets, daily range): BP systolic 102–129; BP diastolic 52–74; PULSE 91–112; RESP 15–20
[2016-07-31] MEDS: ACETAMINOPHEN 500 MG TAB PO PRN (06:26)
[2016-07-31] MEDS ORDERED: ACETAMINOPHEN 1000 MG/100 ML IVPB ONE (07:00)
[2016-07-31] MEDS: VANCOMYCIN 1 GM in NS 250 ML IVPB SCH ×3 (07:20→22:56)
[2016-07-31] MEDS: SENNA/DOCUSATE NA (8.6MG/50MG) TAB PO SCH ×2 (09:04→21:00)
[2016-07-31] MEDS: RIFAMPIN 300 MG CAP PO SCH (09:04)
[2016-07-31] MEDS: MUPIROCIN 2% 22 GM OINT TOP SCH ×2 (09:04→21:00)
--- NOTE | 2016-07-31 12:23 | PN ---
Date/Time of Note Date/Time of Note DATE: 07/31/16 TIME: 12:21 Assessment/Plan VTE Prophylaxis VTE Prophylaxis Intervention: ambulation, other (Xarelto) Lines/Catheters IV Catheter Type (from Nrs): PICC Line Central line still needed: Yes Urinary Cath still in place: No Assessment/Plan Chief Complaint/Hosp Course s/p ACL reconstruction with Achilles allograft on 07/12/16, and s/p I&D with cultures on 07/25/16 and again on 07/27/16, now with recurrent wound drainage in tibial wound. Problems: Assessment/Plan - NPO - Will take back to OR tonight for repeat I&D of left knee, possible hardware removal, cultures. - IVF 125/hour now. - Prepare consent. Subjective 24 Hr Interval Summary Free Text/Dictation Complains of feeling hot and feverish last night. Wound started draining. Exam/Review of Systems Vital Signs Vitals Vital Signs Date Time Temp Pulse Resp B/P Pulse Ox O2 Delivery O2 Flow Rate FiO2 07/31/16 07:28 98.6 81 18 116/70 98 07/31/16 06:21 Room Air 07/27/16 09:46 2.0 Intake and Output 07/30/16 07/30/16 07/31/16 14:59 22:59 06:59 Intake Total 250 ml 1070 ml 750 ml Output Total 900 ml Balance 250 ml 170 ml 750 ml Exam Constitutional: alert, oriented Respiratory: normal air movement Cardiovascular: regular rate and rhythm Musculoskeletal: other (Left knee with small amount of serosanguinous fluid on bandage, expressable from superior aspect of tibial incision. Minimal knee effusion, knee portals dry, no erythema. NVID. ) Results Result Diagram: 07/28/16 1117 07/29/16 0439 Results 24 hrs Laboratory Tests Test 07/30/16 15:15 Bedside Glucose 100 Medications Medications Current Medications Senna/Docusate Sodium (Senokot-S) 1 tab BID PO Last administered on 07/31/16 09:04; Admin Dose 1 TAB; Start 07/25/16 at 09:00 Magnesium Hydroxide (Milk Of Mag) 30 ml BID PRN PO CONSTIPATION Last administered on 07/27/16 20:02; Admin Dose 30 ML; Start 07/25/16 at 00:00 Magnesium Hydroxide (Milk Of Mag) 30 ml HS PO Last administered on 07/30/16 20 :24; Admin Dose 30 ML; Start 07/26/16 at 21:00 Bisacodyl (Dulcolax Supp) 10 mg DAILY PRN [place] CONSTIPATION; Start 07/25/16 at 00 :00 Sodium Biphosphate/ Sodium Phosphate (Fleet Enema) 133 ml DAILY PRN [place] CONSTIPATION; Start 07/25/16 at 00:00 Acetaminophen (Tylenol Tab) 1,000 mg Q4H PRN PO TEMP GREATER THAN 100.4F Last administered on 07/31/16 06:26; Admin Dose 1,000 MG; Start 07/25/16 at 00:00 Oxycodone/ Acetaminophen (Percocet (5/ 325)) 1 tab Q4H PRN PO PAIN; Start 07/25 at 00:00 Oxycodone/ Acetaminophen (Percocet (5/ 325)) 2 tab Q4H PRN PO PAIN Last administered on 07/26/16 21:11; Admin Dose 2 TAB; Start 07/25/16 at 00:00 Morphine Sulfate (morphine) 5 mg Q4H PRN IV PAIN LEVEL 7-10 Last administered on 07/29/16 14:54; Admin Dose 5 MG; Start 07/25/16 at 00:00 Ondansetron HCl (Zofran Inj) 4 mg Q4H PRN IV NAUSEA AND/OR VOMITING Last administered on 07/30/16 10:04; Admin Dose 4 MG; Start 07/25/16 at 00:00 Diphenhydramine HCl (Benadryl) 25 mg Q4H PRN PO ITCHING; Start 07/25/16 at 00: 00 Bisacodyl (Dulcolax) 10 mg DAILY PRN PO CONSTIPATION Last administered on 08:19; Admin Dose 10 MG; Start 07/26/16 at 09:30 Vancomycin HCl (Vanco Iv Per Pharmacy) PER PHARMACY DOSING NOTE XX ; Start 07/25 at 18:30 Mupirocin (Bactroban) 1 applic BID TOP Last administered on 07/31/16 09:04; Admin Dose 1 APPLIC; Start 07/27/16 at 21:00 Acetaminophen/ Hydrocodone Bitart ([place] (5/325)) 1 tab Q4H PRN GTB PAIN LEVEL 1-5 Last administered on 07/30/16 23:35; Admin Dose 1 TAB; Start 07/27/16 at 16 :30 Acetaminophen/ Hydrocodone Bitart ([place] (5/325)) 2 tab Q4H PRN PO PAIN LEVEL 6 -10 Last administered on 07/30/16 06:19; Admin Dose 2 TAB; Start 07/27/16 at 16 :30 IV Flush 10 ml 10 ml PRN PRN IV FLUSH LINE Last administered on 07/29/16 04:44 ; Admin Dose 10 ML; Start 07/27/16 at 20:00 Vancomycin HCl (Vancocin) 250 ml @ 125 mls/hr Q8H IVPB Last administered on 07:20; Admin Dose 125 MLS/HR; Start 07/29/16 at 15:00 Rifampin (Rifampin) 600 mg DAILY PO Last administered on 07/31/16 09:04; Admin Dose 600 MG; Start 07/29/16 at 18:00 MERLYN TAFOYA MD Jul 31, 2016 12:23
[2016-07-31] MEDS: DEXTROSE 5%-LR 1,000 ML IV SCH ×2 (12:41→22:30)
[2016-07-31] MEDS: RIVAROXABAN 10 MG TABLET PO SCH (17:01)
[2016-07-31] MEDS ORDERED: PROPOFOL 60 ML ONE (19:12)
[2016-07-31] MEDS ORDERED: LIDOCAINE 2% (SDV) 5 ML INJ ONE (19:12)
[2016-07-31] MEDS ORDERED: MIDAZOLAM 1 MG/ML 2 ML INJ ONE (19:17)
[2016-07-31] MEDS ORDERED: ROPIVACAINE 0.5 % 30 ML VIAL ONE (19:31)
[2016-07-31] MEDS ORDERED: POLYMYXIN B 500000 UNIT INJ ONE ×3 (19:31→21:21)
[2016-07-31] MEDS ORDERED: BACITRACIN/POLYMYXIN 28.35 GM OINT TOP ONE (19:31)
[2016-07-31] MEDS ORDERED: PROPOFOL 20 ML ONE ×2 (20:35)
[2016-07-31] MEDS: MAGNESIUM HYDROXIDE 30ML CUP PO SCH (21:00)
[2016-07-31] MEDS ORDERED: LABETALOL HCL 20MG INJ ONE ×2 (21:26→21:41)
[2016-07-31] MEDS ORDERED: DEXAMETHASONE 4 MG/ML 1 ML INJ ONE (21:32)
[2016-07-31] MEDS ORDERED: ONDANSETRON 4 MG INJ ONE (21:33)
[2016-07-31] MEDS ORDERED: hydrALAzine 20 MG INJ ONE (21:40)
[2016-07-31] MEDS ORDERED: FENTAnyl 50 MCG/ML VIAL ONE ×2 (22:03→22:20)
[2016-07-31] MEDS ORDERED: MEPERIDINE 25 MG INJ IV PRN (22:30)
[2016-07-31] MEDS ORDERED: DIPHENHYDRAMINE 50 MG INJ IV PRN (22:30)
[2016-07-31] MEDS ORDERED: EPHEDrine SULFATE 50 MG/5 ML SYG IV PRN (22:30)
[2016-07-31] MEDS ORDERED: hydrALAzine 20 MG INJ IV PRN (22:30)
[2016-07-31] MEDS ORDERED: HYDROmorphONE (0.2 MG/ML) 10ML SYG IV PRN ×3 (22:30)
[2016-07-31] MEDS ORDERED: METOCLOPRAMIDE 10 MG INJ IV PRN (22:30)
[2016-07-31] MEDS ORDERED: ONDANSETRON 4 MG INJ IV PRN (22:30)
[2016-07-31] MEDS ORDERED: LABETALOL HCL 20MG INJ IV PRN (22:30)
[2016-07-31] MEDS ORDERED: LORAZEPAM 2 MG INJ IV PRN (22:30)
[2016-07-31] MEDS ORDERED: FENTAnyl 50 MCG/ML VIAL IV PRN ×3 (22:30)
[2016-07-31] MEDS: BACITRACIN 50000 UNITS INJ ONE (22:32)
--- NOTE | 2016-07-31 22:54 | EN ---
Date/Time of Note Date/Time of Note DATE: 07/31/16 TIME: 22:51 Event Note Surgery Surgery Event Note Preop dx: L knee infection, deep hardware infection Postop dx:same Procedure: I+D L tibial wound, ROHW (deep), arthroscopic extensive debridement L knee Surgeon: Vaibhav Tafoya Assist: Radha Butcher Specimens: knee aspirate, tibia wound cx, knee synovium Implants: none Tourniquet: n/a EBL: 100cc Status: stable to PACU/floor MERLYN TAFOYA MD Jul 31, 2016 22:54
[2016-07-31] MEDS: ONDANSETRON 4 MG INJ IV PRN (23:06)
[2016-07-31] MEDS ORDERED: BACITRACIN 50000 UNITS INJ ONE (23:31)
[2016-08-01] VITALS (11 sets, daily range): BP systolic 101–115; BP diastolic 56–64; PULSE 97–109; RESP 18–20
--- NOTE | 2016-08-01 03:18 | OPR ---
DATE OF OPERATION: 07/31/2016 PREOPERATIVE DIAGNOSIS: Infection, left knee, status post ACL reconstruction. POSTOPERATIVE DIAGNOSIS: Infection, left knee, status post ACL reconstruction. OPERATION PERFORMED: 1. Arthroscopy, left knee. 2. Irrigation, debridement, and synovectomy, left knee. 3. Multiple cultures, left knee. 4. Open irrigation and debridement of the proximal tibial wound. 5. Removal of a Fastlok staple and a portion of Dacron tape proximal tibial wound. 6. Insertion of wound VAC to the proximal tibial wound. SURGEON: Merlyn Valle MD LEARNING TECHNOLOGIST: Kashmir Butcher MD. ANESTHESIA: General. TOURNIQUET TIME: Zero. DESCRIPTION OF PROCEDURE: The patient was taken to the operating room and placed in supine position . Satisfactory general anesthesia was administered. The patient was already receiving vancomycin i ntravenously. The patient seemed to be doing well after the last debridement but today was found to have recurrent drainage coming out of the proximal tibial wound suspicious for infection, taken to the operating room again now for irrigation and debridement of the knee and the tibial wound and rem oval of hardware. The patient was taken to the operating room and placed in supine position. Left knee was prepped an d draped in the usual manner after the stitches had been removed. The knee was aspirated, bloody fl uid removed, did not look purulent, but was sent for culture and sensitivity. The left knee tibial wound had drainage. It was debrided with a rongeur and curet. The Fastlok staple was cut, and the Fastlok staple was removed with an extractor. Dacron tape was removed all the way to where it enter ed the tibial tunnel into the Achilles allograft. It was cut inside the tunnel. Entire proximal ti bial wound was debrided and irrigated with 10 liters of antibiotic solution. The arthroscope was th en inserted into the knee. There was a lot of scar and debris. This was removed. Cultures were ta marlyn from intra-articular specimen sent and the synovium. Shaver was used to do a partial synovectom y, removal of all debris and adhesions. The graft appeared to be intact. The graft was cleared of all debris. The knee had gotten somewhat stiffer than previous surgeries but could be manipulated 0 to 125 degrees. The AP drawer and Meliton were 1+. The knee was irrigated with 15 liters of antib iotic solution. The deep tibial wound was closed with several 2-0 PDS, and the skin was closed with 2-0 PDS and 4-0 PDS, and then a wound VAC was applied. The patient was then placed back in a compr ession stocking and knee brace. At the end of procedure, the sponge and needle count were correct. The patient tolerated the procedure well. Dictated By: MERLYN MULTANI/JUAN Conf#: [id number] DID#: [id number]
[2016-08-01 05:29] LABS: CREATININE 0.54 mg/dl (0.44-1.00)
[2016-08-01] MEDS: VANCOMYCIN 1 GM in NS 250 ML IVPB SCH ×3 (06:34→23:19)
[2016-08-01] MEDS: DEXTROSE 5%-LR 1,000 ML IV SCH ×3 (08:30→23:20)
[2016-08-01] MEDS: SENNA/DOCUSATE NA (8.6MG/50MG) TAB PO SCH ×2 (08:53→21:00)
[2016-08-01] MEDS: RIFAMPIN 300 MG CAP PO SCH (08:54)
[2016-08-01] MEDS: MUPIROCIN 2% 22 GM OINT TOP SCH ×2 (08:54→21:00)
[2016-08-01] MEDS: ACETAMINOPHEN 500 MG TAB PO PRN ×2 (10:39→18:08)
[2016-08-01] MEDS: RIVAROXABAN 10 MG TABLET PO SCH (18:07)
[2016-08-01] MEDS: MAGNESIUM HYDROXIDE 30ML CUP PO SCH (21:00)
[2016-08-02] MEDS: ONDANSETRON 4 MG INJ IV PRN ×4 (00:07→23:12)
[2016-08-02] MEDS: VANCOMYCIN 1 GM in NS 250 ML IVPB SCH ×3 (06:04→23:07)
[2016-08-02] MEDS: SENNA/DOCUSATE NA (8.6MG/50MG) TAB PO SCH ×2 (07:35→21:00)
[2016-08-02] MEDS ORDERED: LOPERAMIDE 2 MG CAP PO PRN (08:00)
[2016-08-02] MEDS: RIFAMPIN 300 MG CAP PO SCH (08:01)
[2016-08-02] MEDS: MUPIROCIN 2% 22 GM OINT TOP SCH ×2 (08:01→23:07)
[2016-08-02 08:22] VITALS: BP 133/77; RESP 16
[2016-08-02] MEDS: ACETAMINOPHEN 500 MG TAB PO PRN ×2 (10:25→18:36)
--- NOTE | 2016-08-02 14:08 | PN ---
Date/Time of Note Date/Time of Note DATE: 08/02/16 TIME: 14:03 Assessment/Plan VTE Prophylaxis VTE Prophylaxis Intervention: ambulation, anti-embolic stocking, SCD's Lines/Catheters IV Catheter Type (from Nrsg): PICC Line Central line still needed: Yes Urinary Cath still in place: No Assessment/Plan Chief Complaint/Hosp Course s/p ACL reconstruction with Achilles allograft on 07/12/16, and s/p I&D with cultures on 07/25/16 and again on 07/27/16, now with recurrent wound drainage in tibial wound. Problems: Assessment/Plan - Cont IV abx per ID recs, appreciate their assistance - F/u cultures - CBC/CRP tomorrow am - d/c incisional wound vac over weekend -> dressing changes - monitor vitals. currently stable and afebrile - Continue to encourage ambulation - Pain control, elevate leg - scd's, ambulation for DVT ppx - dispo: continue inpatient Subjective 24 Hr Interval Summary Free Text/Dictation No acute issues. Pain controlled, pt not requiring pain meds. Exam/Review of Systems Vital Signs Vitals Vital Signs Date Time Temp Pulse Resp B/P Pulse Ox O2 Delivery O2 Flow Rate FiO2 08/02/16 08:22 99.1 75 16 133/77 98 08/01/16 04:41 Room Air Intake and Output 08/01/16 08/01/16 08/02/16 15:00 23:00 07:00 Intake Total 250 ml 1950 ml 2200 ml Balance 250 ml 1950 ml 2200 ml Exam LLE: brace on. wound vac functioning. dressing intact. sens/motor intact distally SPN/DPN/tib. wwp. Results Result Diagram: 08/01/16 0435 Results 24 hrs Laboratory Tests Test 08/01/16 22:06 Vancomycin Level Trough 13.0 Medications Medications Current Medications Senna/Docusate Sodium (Senokot-S) 1 tab BID PO Last administered on 08/01/16 08:53; Admin Dose 1 TAB; Start 07/25/16 at 09:00 Magnesium Hydroxide (Milk Of Mag) 30 ml BID PRN PO CONSTIPATION Last administered on 07/27/16 20:02; Admin Dose 30 ML; Start 07/25/16 at 00:00 Magnesium Hydroxide (Milk Of Mag) 30 ml HS PO Last administered on 07/30/16 20 :24; Admin Dose 30 ML; Start 07/26/16 at 21:00 Bisacodyl (Dulcolax Supp) 10 mg DAILY PRN [place] CONSTIPATION; Start 07/25/16 at 00 :00 Sodium Biphosphate/ Sodium Phosphate (Fleet Enema) 133 ml DAILY PRN [place] CONSTIPATION; Start 07/25/16 at 00:00 Acetaminophen (Tylenol Tab) 1,000 mg Q4H PRN PO TEMP GREATER THAN 100.4F Last administered on 08/02/16 10:25; Admin Dose 1,000 MG; Start 07/25/16 at 00:00 Oxycodone/ Acetaminophen (Percocet (5/ 325)) 1 tab Q4H PRN PO PAIN; Start 07/25 at 00:00 Oxycodone/ Acetaminophen (Percocet (5/ 325)) 2 tab Q4H PRN PO PAIN Last administered on 07/26/16 21:11; Admin Dose 2 TAB; Start 07/25/16 at 00:00 Morphine Sulfate (morphine) 5 mg Q4H PRN IV PAIN LEVEL 7-10 Last administered on 07/29/16 14:54; Admin Dose 5 MG; Start 07/25/16 at 00:00 Ondansetron HCl (Zofran Inj) 4 mg Q4H PRN IV NAUSEA AND/OR VOMITING Last administered on 08/02/16 12:21; Admin Dose 4 MG; Start 07/25/16 at 00:00 Diphenhydramine HCl (Benadryl) 25 mg Q4H PRN PO ITCHING; Start 07/25/16 at 00: 00 Bisacodyl (Dulcolax) 10 mg DAILY PRN PO CONSTIPATION Last administered on 08:19; Admin Dose 10 MG; Start 07/26/16 at 09:30 Vancomycin HCl (Vanco Iv Per Pharmacy) PER PHARMACY DOSING NOTE XX ; Start 07/25 at 18:30 Mupirocin (Bactroban) 1 applic BID TOP Last administered on 08/02/16 08:01; Admin Dose 1 APPLIC; Start 07/27/16 at 21:00 Acetaminophen/ Hydrocodone Bitart ([place] (5/325)) 1 tab Q4H PRN GTB PAIN LEVEL 1-5 Last administered on 07/30/16 23:35; Admin Dose 1 TAB; Start 07/27/16 at 16 :30 Acetaminophen/ Hydrocodone Bitart ([place] (5/325)) 2 tab Q4H PRN PO PAIN LEVEL 6 -10 Last administered on 07/30/16 06:19; Admin Dose 2 TAB; Start 07/27/16 at 16 :30 IV Flush 10 ml 10 ml PRN PRN IV FLUSH LINE Last administered on 07/29/16 04:44 ; Admin Dose 10 ML; Start 07/27/16 at 20:00 Vancomycin HCl (Vancocin) 250 ml @ 125 mls/hr Q8H IVPB Last administered on 06:04; Admin Dose 125 MLS/HR; Start 07/29/16 at 15:00 Rifampin 600 mg 600 mg DAILY PO Last administered on 08/02/16 08:01; Admin Dose 600 MG; Start 07/29/16 at 18:00 Dextrose/Lactated Ringer's (D5-Lr) 1,000 ml @ 100 mls/hr Q10H IV Last administered on 08/01/16 23:20; Admin Dose 100 MLS/HR; Start 07/31/16 at 12:30 Loperamide HCl (Imodium Cap) 2 mg QID PRN PO DIARRHEA Last administered on 08/02 08:01; Admin Dose 2 MG; Start 08/02/16 at 08:00 MERLYN TAFOYA MD Aug 02, 2016 14:08
[2016-08-02] MEDS: DEXTROSE 5%-LR 1,000 ML IV SCH (15:30)
[2016-08-02] MEDS: RIVAROXABAN 10 MG TABLET PO SCH (17:20)
[2016-08-02 19:54] VITALS: BP 118/58; RESP 18
[2016-08-02] MEDS: MAGNESIUM HYDROXIDE 30ML CUP PO SCH (21:00)
[2016-08-03 06:03] LABS: ADD SCAN DIFF NO
[2016-08-03 06:14] LABS: BASOPHILS % 0.3 % (0.0-2.0); EOSINOPHILS # 0.2 10^3/ul (0.0-0.5); EOSINOPHILS % 2.2 % (0.0-7.0); HEMATOCRIT 25.3 % (37.0-47.0); HEMOGLOBIN 8.3 g/dl (12.0-16.0); LYMPHOCYTES # 1.4 10^3/ul (0.8-2.9); LYMPHOCYTES % 20.9 % (15.0-51.0); MEAN CORPUSCULAR HEMOGLOBIN 28.4 pg (29.0-33.0); MEAN CORPUSCULAR HGB CONC 32.8 g/dl (32.0-37.0); MEAN CORPUSCULAR VOLUME 86.6 fl (82.0-101.0); MEAN PLATELET VOLUME 8.7 fl (7.4-10.4); MONOCYTE # 1.1 10^3/ul (0.3-0.9); MONOCYTES % 16.2 % (0.0-11.0); NEUTROPHIL # 4.1 10^3/ul (1.6-7.5); NEUTROPHILS % 59.7 % (39.0-77.0); PLATELET COUNT 362 10^3/UL (140-415); RED BLOOD COUNT 2.92 10^6/ul (4.20-5.40); RED CELL DISTRIBUTION WIDTH 12.5 % (11.5-14.5); WHITE BLOOD COUNT 6.9 10^3/ul (4.8-10.8)
[2016-08-03] MEDS: DEXTROSE 5%-LR 1,000 ML IV SCH ×3 (06:17→15:54)
[2016-08-03] MEDS: VANCOMYCIN 1 GM in NS 250 ML IVPB SCH ×3 (06:17→22:03)
[2016-08-03 07:55] VITALS: BP 126/70; RESP 68
[2016-08-03] MEDS: RIFAMPIN 300 MG CAP PO SCH (08:30)
[2016-08-03] MEDS: MUPIROCIN 2% 22 GM OINT TOP SCH ×2 (08:30→20:36)
[2016-08-03] MEDS: SENNA/DOCUSATE NA (8.6MG/50MG) TAB PO SCH ×2 (08:31→20:36)
--- NOTE | 2016-08-03 09:02 | PN ---
Date/Time of Note Date/Time of Note DATE: 08/03/16 TIME: 08:58 Assessment/Plan VTE Prophylaxis VTE Prophylaxis Intervention: anti-embolic stocking, SCD's Lines/Catheters IV Catheter Type (from Nrs): PICC Line Central line still needed: Yes Urinary Cath still in place: No Assessment/Plan Chief Complaint/Hosp Course s/p ACL reconstruction with Achilles allograft on 07/12/16, and s/p I&D with cultures on 07/25/16 and again on 07/27/16, 07/31/16 with 2/4 most recent cultures growing scant MRSA. Problems: Assessment/Plan -Feeling better today. -Monitor temp and subjective feeling. -Will remove dressing tomorrow. -Continue Vanco per Pharmacy dosing. Subjective 24 Hr Interval Summary Free Text/Dictation Pt. feels remarkably better this morning. Parents are present at the bedside. She had a Tmax of 100.4 last evening which she did feel poorly during but recovered quickly. CRP is down this morning to 13. Constitutional: improved, no complaints Respiratory: no complaints Exam/Review of Systems Vital Signs Vitals Vital Signs Date Time Temp Pulse Resp B/P Pulse Ox O2 Delivery O2 Flow Rate FiO2 08/03/16 07:55 98.5 68 68 126/70 98 08/01/16 04:41 Room Air Intake and Output 08/02/16 08/02/16 08/03/16 15:00 23:00 07:00 Intake Total 1550 ml 1970 ml Output Total 0 ml 0 ml Balance 1550 ml 1970 ml Exam Constitutional: alert, oriented Psych: no complaints Musculoskeletal: nl extremities to inspection Additional Comments Wound VAC left in place. Dressing CDI. No drainage in VAC canister. Moving toes normally, toes warm, well perfused. Results CRP 13, down from 18 Result Diagram: 08/03/16 0459 08/01/16 0435 Results 24 hrs Laboratory Tests Test 08/03/16 04:56 08/03/16 04:59 C-Reactive Protein 13.9 H White Blood Count 6.9 # Red Blood Count 2.92 L Hemoglobin 8.3 L Hematocrit 25.3 L Mean Corpuscular Volume 86.6 Mean Corpuscular Hemoglobin 28.4 L Mean Corpuscular Hemoglobin Concent 32.8 Red Cell Distribution Width 12.5 Platelet Count 362 Mean Platelet Volume 8.7 Neutrophils % 59.7 Lymphocytes % 20.9 Monocytes % 16.2 H Eosinophils % 2.2 Basophils % 0.3 Nucleated Red Blood Cells % 0.0 Neutrophils # 4.1 Lymphocytes # 1.4 Monocytes # 1.1 H Eosinophils # 0.2 Basophils # 0.0 Nucleated Red Blood Cells # 0.0 Medications Medications Current Medications Senna/Docusate Sodium (Senokot-S) 1 tab BID PO Last administered on 08/01/16 08:53; Admin Dose 1 TAB; Start 07/25/16 at 09:00 Magnesium Hydroxide (Milk Of Mag) 30 ml BID PRN PO CONSTIPATION Last administered on 07/27/16 20:02; Admin Dose 30 ML; Start 07/25/16 at 00:00 Magnesium Hydroxide (Milk Of Mag) 30 ml HS PO Last administered on 07/30/16 20 :24; Admin Dose 30 ML; Start 07/26/16 at 21:00 Bisacodyl (Dulcolax Supp) 10 mg DAILY PRN [place] CONSTIPATION; Start 07/25/16 at 00 :00 Sodium Biphosphate/ Sodium Phosphate (Fleet Enema) 133 ml DAILY PRN [place] CONSTIPATION; Start 07/25/16 at 00:00 Acetaminophen (Tylenol Tab) 1,000 mg Q4H PRN PO TEMP GREATER THAN 100.4F Last administered on 08/02/16 18:36; Admin Dose 1,000 MG; Start 07/25/16 at 00:00 Oxycodone/ Acetaminophen (Percocet (5/ 325)) 1 tab Q4H PRN PO PAIN; Start 07/25 at 00:00 Oxycodone/ Acetaminophen (Percocet (5/ 325)) 2 tab Q4H PRN PO PAIN Last administered on 07/26/16 21:11; Admin Dose 2 TAB; Start 07/25/16 at 00:00 Morphine Sulfate (morphine) 5 mg Q4H PRN IV PAIN LEVEL 7-10 Last administered on 07/29/16 14:54; Admin Dose 5 MG; Start 07/25/16 at 00:00 Ondansetron HCl (Zofran Inj) 4 mg Q4H PRN IV NAUSEA AND/OR VOMITING Last administered on 08/02/16 23:12; Admin Dose 4 MG; Start 07/25/16 at 00:00 Diphenhydramine HCl (Benadryl) 25 mg Q4H PRN PO ITCHING; Start 07/25/16 at 00: 00 Bisacodyl (Dulcolax) 10 mg DAILY PRN PO CONSTIPATION Last administered on 08:19; Admin Dose 10 MG; Start 07/26/16 at 09:30 Vancomycin HCl (Vanco Iv Per Pharmacy) PER PHARMACY DOSING NOTE XX ; Start 07/25 at 18:30 Mupirocin (Bactroban) 1 applic BID TOP Last administered on 08/03/16 08:30; Admin Dose 1 APPLIC; Start 07/27/16 at 21:00 Acetaminophen/ Hydrocodone Bitart ([place] (5/325)) 1 tab Q4H PRN GTB PAIN LEVEL 1-5 Last administered on 07/30/16 23:35; Admin Dose 1 TAB; Start 07/27/16 at 16 :30 Acetaminophen/ Hydrocodone Bitart ([place] (5/325)) 2 tab Q4H PRN PO PAIN LEVEL 6 -10 Last administered on 07/30/16 06:19; Admin Dose 2 TAB; Start 07/27/16 at 16 :30 IV Flush 10 ml 10 ml PRN PRN IV FLUSH LINE Last administered on 07/29/16 04:44 ; Admin Dose 10 ML; Start 07/27/16 at 20:00 Vancomycin HCl (Vancocin) 250 ml @ 125 mls/hr Q8H IVPB Last administered on 06:17; Admin Dose 125 MLS/HR; Start 07/29/16 at 15:00 Rifampin 600 mg 600 mg DAILY PO Last administered on 08/03/16 08:30; Admin Dose 600 MG; Start 07/29/16 at 18:00 Dextrose/Lactated Ringer's (D5-Lr) 1,000 ml @ 100 mls/hr Q10H IV Last administered on 08/03/16 06:17; Admin Dose 100 MLS/HR; Start 07/31/16 at 12:30 Loperamide HCl (Imodium Cap) 2 mg QID PRN PO DIARRHEA Last administered on 08/02 08:01; Admin Dose 2 MG; Start 08/02/16 at 08:00 MERLYN TAFOYA MD Aug 03, 2016 09:02
[2016-08-03] MEDS: RIVAROXABAN 10 MG TABLET PO SCH (17:01)
[2016-08-03 17:05] VITALS: BP 123/74; PULSE 94; RESP 18
[2016-08-03] MEDS: ACETAMINOPHEN 500 MG TAB PO PRN (18:26)
[2016-08-03 19:24] VITALS: BP 115/70; RESP 18
[2016-08-03] MEDS: MAGNESIUM HYDROXIDE 30ML CUP PO SCH (20:35)
[2016-08-03] MEDS: ONDANSETRON 4 MG INJ IV PRN (22:01)
[2016-08-04] MEDS: ACETAMINOPHEN 500 MG TAB PO PRN ×3 (04:30→20:26)
[2016-08-04] MEDS: DEXTROSE 5%-LR 1,000 ML IV SCH ×3 (04:30→18:35)
[2016-08-04] MEDS: VANCOMYCIN 1 GM in NS 250 ML IVPB SCH ×3 (06:23→22:58)
[2016-08-04 08:07] VITALS: BP 114/68; RESP 22
--- NOTE | 2016-08-04 08:35 | PN ---
Date/Time of Note Date/Time of Note DATE: 08/04/16 TIME: 08:30 Assessment/Plan VTE Prophylaxis VTE Prophylaxis Intervention: ambulation, anti-embolic stocking, SCD's, other Lines/Catheters IV [facility] PICC Line Central line still needed: Yes Urinary Cath still in place: No Assessment/Plan Chief Complaint/Hosp Course s/p ACL reconstruction with Achilles allograft on 07/12/16, and s/p I&D with cultures on 07/25/16 and again on 07/27/16, 07/31/16 with 2/4 most recent cultures growing scant MRSA. Feeling better each day. Problems: Assessment/Plan -Feeling better each day but still having evening malaise -Monitor temp and subjective feeling. -Continue dry dressing to wound. -Continue Vanco per Pharmacy dosing. -Cx growing MRSA. -Dr. Valle to see and determine plan going forward early this PM. Subjective 24 Hr Interval Summary Free Text/Dictation Graciela continues to feel better each day with the exception of a period last night when she had a low grade temp of 100.3 and felt exhausted. Her diet is improving somewhat and she walked the floor for an hour this morning. She feels she has turned a corner but is nervous that she feels poorly each evening for a period of time. Constitutional: improved Skin: no complaints Exam/Review of Systems Vital Signs Vitals Vital Signs Date Time Temp Pulse Resp B/P Pulse Ox O2 Delivery O2 Flow Rate FiO2 08/04/16 08:07 98.0 104 22 114/68 98 08/03/16 17:05 Room Air Intake and Output 08/03/16 08/03/16 08/04/16 14:59 22:59 06:59 Intake Total 250 ml 2030 ml 1850 ml Output Total 1050 ml 0 ml Balance 250 ml 980 ml 1850 ml Exam Doing well, dressing taken down. Incision c/d/i with no surrounding erythema. Remainder of exam unchanged. Results Result Diagram: 08/03/16 0459 08/01/16 0435 Medications Medications Current Medications Senna/Docusate Sodium (Senokot-S) 1 tab BID PO Last administered on 08/01/16t 08:53; Admin Dose 1 TAB; Start 07/25/16 at 09:00 Magnesium Hydroxide (Milk Of Mag) 30 ml BID PRN PO CONSTIPATION Last administered on 07/27/16 20:02; Admin Dose 30 ML; Start 07/25/16 at 00:00 Magnesium Hydroxide (Milk Of Mag) 30 ml HS PO Last administered on 07/30/16 20 :24; Admin Dose 30 ML; Start 07/26/16 at 21:00 Bisacodyl (Dulcolax Supp) 10 mg DAILY PRN [place] CONSTIPATION; Start 07/25/16 at 00 :00 Sodium Biphosphate/ Sodium Phosphate (Fleet Enema) 133 ml DAILY PRN [place] CONSTIPATION; Start 07/25/16 at 00:00 Acetaminophen (Tylenol Tab) 1,000 mg Q4H PRN PO TEMP GREATER THAN 100.4F Last administered on 08/04/16 04:30; Admin Dose 1,000 MG; Start 07/25/16 at 00:00 Oxycodone/ Acetaminophen (Percocet (5/ 325)) 1 tab Q4H PRN PO PAIN; Start 07/25 at 00:00 Oxycodone/ Acetaminophen (Percocet (5/ 325)) 2 tab Q4H PRN PO PAIN Last administered on 07/26/16 21:11; Admin Dose 2 TAB; Start 07/25/16 at 00:00 Morphine Sulfate (morphine) 5 mg Q4H PRN IV PAIN LEVEL 7-10 Last administered on 07/29/16 14:54; Admin Dose 5 MG; Start 07/25/16 at 00:00 Ondansetron HCl (Zofran Inj) 4 mg Q4H PRN IV NAUSEA AND/OR VOMITING Last administered on 08/03/16 22:01; Admin Dose 4 MG; Start 07/25/16 at 00:00 Diphenhydramine HCl (Benadryl) 25 mg Q4H PRN PO ITCHING; Start 07/25/16 at 00: 00 Bisacodyl (Dulcolax) 10 mg DAILY PRN PO CONSTIPATION Last administered on 08:19; Admin Dose 10 MG; Start 07/26/16 at 09:30 Vancomycin HCl (Vanco Iv Per Pharmacy) PER PHARMACY DOSING NOTE XX ; Start 07/25 at 18:30 Mupirocin (Bactroban) 1 applic BID TOP Last administered on 08/03/16 20:36; Admin Dose 1 APPLIC; Start 07/27/16 at 21:00 Acetaminophen/ Hydrocodone Bitart ([place] (5/325)) 1 tab Q4H PRN GTB PAIN LEVEL 1-5 Last administered on 07/30/16 23:35; Admin Dose 1 TAB; Start 07/27/16 at 16 :30 Acetaminophen/ Hydrocodone Bitart ([place] (5/325)) 2 tab Q4H PRN PO PAIN LEVEL 6 -10 Last administered on 07/30/16 06:19; Admin Dose 2 TAB; Start 07/27/16 at 16 :30 IV Flush 10 ml 10 ml PRN PRN IV FLUSH LINE Last administered on 07/29/16 04:44 ; Admin Dose 10 ML; Start 07/27/16 at 20:00 Vancomycin HCl (Vancocin) 250 ml @ 125 mls/hr Q8H IVPB Last administered on 06:23; Admin Dose 125 MLS/HR; Start 07/29/16 at 15:00 Rifampin 600 mg 600 mg DAILY PO Last administered on 08/03/16 08:30; Admin Dose 600 MG; Start 07/29/16 at 18:00 Dextrose/Lactated Ringer's (D5-Lr) 1,000 ml @ 100 mls/hr Q10H IV Last administered on 08/04/16 04:30; Admin Dose 100 MLS/HR; Start 07/31/16 at 12:30 Loperamide HCl (Imodium Cap) 2 mg QID PRN PO DIARRHEA Last administered on 08/02 08:01; Admin Dose 2 MG; Start 08/02/16 at 08:00 NICOLASA GORMAN MD Aug 04, 2016 08:35
[2016-08-04] MEDS: SENNA/DOCUSATE NA (8.6MG/50MG) TAB PO SCH ×2 (09:00→20:27)
[2016-08-04] MEDS: MUPIROCIN 2% 22 GM OINT TOP SCH ×2 (09:04→20:27)
[2016-08-04] MEDS: RIFAMPIN 300 MG CAP PO SCH (09:04)
[2016-08-04] MEDS: ONDANSETRON 4 MG INJ IV PRN ×2 (10:28→18:35)
[2016-08-04] MEDS: RIVAROXABAN 10 MG TABLET PO SCH (18:26)
[2016-08-04 19:07] VITALS: BP 127/69; RESP 18
[2016-08-04] MEDS ORDERED: ALTEPLASE (CATHFLO) 2 MG INJ CATHETER PRN ×2 (20:00)
[2016-08-04] MEDS: MAGNESIUM HYDROXIDE 30ML CUP PO SCH (20:27)
--- NOTE | 2016-08-04 20:36 | CONS ---
DATE OF ADMISSION: 07/24/2016 DATE OF CONSULTATION: 08/04/2016 CHIEF COMPLAINT: Left knee pain and infection. HISTORY OF PRESENT ILLNESS: Patient is a 41-year-old female status post ACL reconstruction who was admitted for an infection in her left knee. She has had 3 debridements and washouts, the last one w as done on July 31 to remove a staple and a Dacron tape. Since that time, the patient has been fee ling significantly better. Her CRPs have come down and she has been eating better. She has been working slowly on her motion a little bit, doing some exercises and has been ambulating much more comfortably. On physical exam today, she was seen with her mother, father and friend, pl easant female, oriented x3. Her temperature was 99. The wound VAC was removed earlier by Dr. Quan . The wound looks very good with no effusion. Her range of motion is 2 and we started working on fl exion today because she has gotten so stiff, to about 35 degrees. She can do a straight leg raise i n a quadriceps contraction. Her knee is stable. ASSESSMENT AND PLAN: 1. Status post ACL reconstruction, left knee with Achilles allograft. 2. Status post methicillin-resistant Staphylococcus aureus infection with debridement x3. 3. Overall, the patient looks much better than in the past clinically. 4. Post-infection anemia. PLAN: 1. Start working on some gentle range of motion. 2. Increase weightbearing. 3. I will speak with Dr. Casper, the infectious disease specialist tomorrow and make sure that ever ything is being done that can be done and try to decide when we can discharge her. She still has be en having some very low grade temperature elevations 99 to 100 in the afternoons, but she feels much better. In addition, I will ask an internal medicine doctor to come by and to look better at her a s well to see if he had any thoughts and ideas of making sure there were not any other "sources of p roblems" that we need to be aware of. We will follower her very carefully and try to make a decisio n when it is safe for her to return home in the next day or 2. She will continue on IV vancomycin a nd Rifampin. Dictated By: MERLYN TAFOYA MD RF/NTS Conf#: [id number] [facility]#: [id number]
[2016-08-05] MEDS: DEXTROSE 5%-LR 1,000 ML IV SCH ×3 (02:30→21:02)
[2016-08-05] MEDS: ACETAMINOPHEN 500 MG TAB PO PRN ×3 (04:23→22:16)
[2016-08-05 05:27] LABS: ADD SCAN DIFF NO
[2016-08-05 05:35] LABS: BASOPHILS % 0.2 % (0.0-2.0); EOSINOPHILS # 0.1 10^3/ul (0.0-0.5); EOSINOPHILS % 2.2 % (0.0-7.0); HEMATOCRIT 24.9 % (37.0-47.0); HEMOGLOBIN 7.9 g/dl (12.0-16.0); LYMPHOCYTES # 1.4 10^3/ul (0.8-2.9); LYMPHOCYTES % 27.9 % (15.0-51.0); MEAN CORPUSCULAR HEMOGLOBIN 27.9 pg (29.0-33.0); MEAN CORPUSCULAR HGB CONC 31.7 g/dl (32.0-37.0); MEAN PLATELET VOLUME 8.9 fl (7.4-10.4); MONOCYTES % 19.2 % (0.0-11.0); NEUTROPHIL # 2.5 10^3/ul (1.6-7.5); NEUTROPHILS % 49.9 % (39.0-77.0); PLATELET COUNT 351 10^3/UL (140-415); RED BLOOD COUNT 2.83 10^6/ul (4.20-5.40); RED CELL DISTRIBUTION WIDTH 12.6 % (11.5-14.5); WHITE BLOOD COUNT 4.9 10^3/ul (4.8-10.8)
[2016-08-05] MEDS: VANCOMYCIN 1 GM in NS 250 ML IVPB SCH ×3 (06:16→22:16)
[2016-08-05 07:31] VITALS: BP 124/78; RESP 20
[2016-08-05] MEDS: SENNA/DOCUSATE NA (8.6MG/50MG) TAB PO SCH ×2 (09:00→20:36)
[2016-08-05] MEDS: RIFAMPIN 300 MG CAP PO SCH (09:16)
[2016-08-05] MEDS: MUPIROCIN 2% 22 GM OINT TOP SCH ×2 (09:21→21:02)
--- NOTE | 2016-08-05 13:46 | RADRPT ---
PROCEDURE: Chest Radiograph. CLINICAL INDICATION: Cough. Evaluate for pneumonia. TECHNIQUE: Single frontal chest radiograph. COMPARISON: Chest radiograph 07/27/2016 FINDINGS: The cardiomediastinal silhouette is within normal limits. Left upper extremity PICC is in place wit h distal tip in the proximal right atrium. No infiltrate or effusion is seen. The bones are intac t. IMPRESSION: 1. No evidence of acute cardiopulmonary disease. 2. Left upper extremity PICC. RPTAT: KK .Landon Venegas MD, MD Date Time Electronically viewed and signed by .Landon Venegas MD, MD on 08/05/2016 13:46 .B/
--- NOTE | 2016-08-05 14:03 | RADRPT ---
PROCEDURE: US DVT. CLINICAL INDICATION: Left leg swelling. TECHNIQUE: Multiple longitudinal and transverse images of the left lower extremity veins were obta ined with christianson scale and color Doppler imaging. 2D grayscale measurements with compression, color D oppler flow, and augmentation was performed. The calf veins were interrogated as well. COMPARISON: No prior studies are available for comparison. FINDINGS: The left common femoral, superficial femoral and popliteal veins are normally compressible throughou t. Color flow demonstrates normal filling of the vessel. Normal waveforms are visualized and there is normal response to augmentation. IMPRESSION: 1. No evidence of a deep vein thrombosis involving the left lower extremity. RPTAT: [facility] Physician Maria Elena Date Time Electronically viewed and signed by Physician Maria Elena on 08/05/2016 14:02 /
[2016-08-05 14:25] LABS: ADD UMIC NO; URINE BILIRUBIN (Dip) NEGATIVE (NEGATIVE); URINE BLOOD (Dip) NEGATIVE (NEGATIVE); URINE COLOR YELLOW (YELLOW); URINE GLUCOSE (Dip) NEGATIVE (NEGATIVE); URINE KETONES (Dip) NEGATIVE (NEGATIVE); URINE LEUKOCYTE ESTERASE (Dip) NEGATIVE (NEGATIVE); URINE NITRITE (Dip) NEGATIVE (NEGATIVE); URINE TOTAL PROTEIN (Dip) NEGATIVE (NEGATIVE); URINE UROBILINOGEN (Dip) 0.2 E.U./dL (0.1-1.0)
[2016-08-05 14:59] LABS: ALBUMIN 3.1 g/dl (3.3-4.9); ALBUMIN/GLOBULIN RATIO 0.83; BILIRUBIN,INDIRECT 0.4 mg/dl (0-1.1); BILIRUBIN,TOTAL 0.4 mg/dl (0.2-1.3); CALCIUM 8.8 mg/dl (8.4-10.2); CREATININE 0.58 mg/dl (0.44-1.00); MAGNESIUM 1.8 mg/dl (1.7-2.5); PHOSPHORUS 3.2 mg/dl (2.5-4.9); POTASSIUM 3.8 mmol/L (3.5-5.1); TOTAL PROTEIN 6.8 g/dl (6.1-8.1)
[2016-08-05 15:07] LABS: TOTAL IRON BINDING CAPACITY 192 ug/dl (241-421)
--- NOTE | 2016-08-05 15:17 | PN ---
DATE: 08/05/2016 SUBJECTIVE: No acute changes. The patient is alert, feels good, looks comfortable. VITAL SIGNS: T-max yesterday 99.9, T current 98.1. Pulse 81, respirations 20, blood pressure 124/7 8, saturation 99 on room air. WBC 4.9, H and H 7.9 and 24.1, platelets 351. BUN 5, creatinine 0.54 . CRP 15.2. MICROBIOLOGY: Left knee wound culture grew MRSA. Urine culture on admission grew E. coli and strep . INDWELLINGS: The patient has a PICC line placed on 07/27/2016. ANTIMICROBIALS: 1. Vancomycin. 2. Rifampin. 3. Topical Bactroban. 4. Status post Rocephin. PHYSICAL EXAMINATION: GENERAL: Well-developed, well-nourished middle-aged woman who is alert, in no distress. HEENT: Head atraumatic, normocephalic. Sclerae anicteric. Buccal mucosa pink. NECK: Supple. CHEST: Rise symmetrical. Breath sounds clear. HEART: S1, S2. ABDOMEN: Soft, bowel tones present. EXTREMITIES: Left knee dressing intact. ASSESSMENT: 1. Systemic inflammatory response syndrome. 2. Left knee septic joint, status post debridement with wound culture grew methicillin-resistant St aphylococcus aureus. 3. Status post anterior cruciate ligament reconstruction of the left knee with Achilles allograft. 4. Anemia apnea. PLAN: The patient remained stable, although with low grade fevers and an elevated CRP. We are gladys g to panculture her and order chest x-ray. Continue her on current antimicrobials for now. Follow ortho recommendations. Above was discussed with the patient and family at bedside. Dictated By: MARITZA DE PAZ [employer] for JENISE SU/NTS Conf#: [id number] DID#: [id number]
[2016-08-05 15:20] LABS: IRON < 10 ug/dl (35-150)
--- NOTE | 2016-08-05 15:56 | RADRPT ---
Echocardiogram Report Patient Name: KRAIG ARIZA Gender: Female Date: 1975 Study Date: 05-Aug-2016 Character Actress: Giovanni Sainz [facility] Location: 425 Ref. Physician: MARCUS SCHILLING Quality: Good Procedures: Transthoracic echocardiogram with complete 2D, M-Mode, and doppler examination. Indications: Endocarditis. 2D/M Mode Doppler Measurement Value Normal Ranges Measurement Value Normal Ranges LVIDd 2D 4.9 3.5 - 5.6 cm AV Peak Edison 1.5 m/sec LVIDs 2D 2.4 2.1 - 4.1 cm AV Peak PG 9.5 mmHg LVPWd 2D 0.7 0.6 - 1.1 cm LVOT Peak Edison 1.2 m/sec IVSd 2D 0.8 0.6 - 1.1 cm LVOT Peak PG 6.1 mmHg AoR Diam 2D 2.6 2.0 - 3.7 cm MV E Peak Edison 0.9 m/sec EDV 2D 111.3 cm3 MV A Peak Edison 1.2 m/sec ESV 2D 14.2 cm3 MV E/A 0.8 LA Dimen 2D 3.3 2.3 - 4.0 cm MV Decel Time 155 msec MV Decel Harmon 6 MV E/A 0.8 TR Peak Edison 3.0 m/sec TR Peak PG 35.9 mmHg RVSP 44.0 mmHg Findings Left Ventricle: Normal left ventricular systolic function. Normal left ventricular cavity size. Normal left ventricular wall thickness. Ejection fraction is visually estimated at 65 %. Tissue Doppler/Mitral Doppler indices are consistent with impaired relaxation (Stage I diastolic dysfunction). Right Ventricle: Normal right ventricular size. Normal right ventricular systolic function. Left Atrium: The left atrium is normal in size. Right Atrium: The right atrium is normal in size. Mitral Valve: Mitral valve leaflets appear mildly thickened. Mild mitral annular calcification. Trace mitral regurgitation. Aortic Valve: Normal appearance of the aortic valve. No significant aortic stenosis or insufficiency. Tricuspid Valve: Normal appearance of the tricuspid valve. Right ventricular systolic pressure is consistent with mild pulmonary hypertension. Estimated peak PA systolic pressure 39 mmHg. There is mild tricuspid regurgitation. Pulmonic Valve: Normal pulmonic valve appearance. Pericardium: Normal pericardium with no significant pericardial effusion. Aorta: Normal aortic root. IVC: Normal size and normal respiratory collapse consistent with normal right atrial pressure. Recommendations: Suggest CHAPARRO to evaluate for possible vegetation if high clinical suspicion for endocarditis given TTE with limited sensitivity to detect vegetation. Conclusions Normal left ventricular systolic function. Normal left ventricular cavity size. Normal left ventricular wall thickness. Ejection fraction is visually estimated at 65 %. Tissue Doppler/Mitral Doppler indices are consistent with impaired relaxation (Stage I diastolic dysfunction). Normal right ventricular size. Normal right ventricular systolic function. Mitral valve leaflets appear mildly thickened. Mild mitral annular calcification. Trace mitral regurgitation. Normal appearance of the aortic valve. No significant aortic stenosis or insufficiency. Normal appearance of the tricuspid valve. Right ventricular systolic pressure is consistent with mild pulmonary hypertension. Estimated peak PA systolic pressure 39 mmHg. There is mild tricuspid regurgitation. Normal size and normal respiratory collapse consistent with normal right atrial pressure. No obvious vegetation, masses, or thrombi seen. Suggest CHAPARRO to evaluate for possible vegetation if high clinical suspicion for endocarditis given TTE with limited sensitivity to detect vegetation. Electronically Signed By: Fabricio España 05-Aug-2016 15:55:02 -0700 Patient Name: KRAIG ARIZA Study Date: 05-Aug-2016 [id number]
--- NOTE | 2016-08-05 15:58 | CONS ---
DATE OF ADMISSION: 07/24/2016 DATE OF CONSULTATION: 08/05/2016 TYPE OF CONSULTATION: Nephrology. Thank you very much for allowing me to evaluate this 41-year-old female admitted with left knee infe ction. HISTORICAL EVENTS: As you well know, this patient did undergo left knee partial medial and lateral meniscectomy on 07/12/2016. She was admitted with concern that her knee was infected on 07/24/2016, and since admission, she has undergone 3 "washouts." Of note was there was growth of Proteus and e nterococcus, and subsequently methicillin-resistant staph. She has been evaluated by infectious dis ease and has been treated with vancomycin and rifampin. Despite the latter, she has noted low gra de fevers, poor appetite, and has generally been fatigued. She admits to intermittent loose stools. There has been no vomiting. There has been no abhinav abdominal pain. She denies cough, wheezing, shortness of breath, or chest pain. She denies pathologic symptoms. PAST MEDICAL HISTORY: Right knee surgery in 05/2016. MEDICATIONS: 1. Vancomycin. 2. Xarelto 3. Senna. 4. Oxycodone p.r.n. PHYSICAL EXAMINATION: VITAL SIGNS: BP 124/78, temperature 98.1, respirations were 20. EYES: Extraocular muscles were full. NOSE, MOUTH, AND THROAT: Normal. NECK: Supple. There was no jugular venous distention, thyroid enlargement or adenopathy. LUNGS: Clear. HEART: Rhythm regular, no murmur. No third or fourth sound. ABDOMEN: Nontender. Liver and spleen were not palpable. No masses or tenderness were noted. EXTREMITIES: Fullness of the Left calf. Nontender. No pitting edema. Left knee was bandaged. Th e right calf was nontender. There was no edema. NEUROLOGIC: No lateralizing motor weakness. AVAILABLE LABORATORY AND DIAGNOSTIC STUDIES: On 07/24/2016 hematocrit was 30.3, white count 12,400. Today, hematocrit 27.9, white count 4900. Platelet count was 351,000. C-reactive protein was 19. 7 on the , 15.2 on the . Chemistries on 07/24/2016 were unrevealing with liver tests that we re normal. Urinalysis was unrevealing on 07/24/2016. Joint fluid analysis was noted on 07/24/2016 and 07/25/2016, and most recent cultures on 07/31/2016 were negative. IMPRESSION: 1. Severe anemia, probably related to phlebotomies and marrow suppression related to infection. We will check iron studies, B12 and stool for OB. 2. Continued low grade temperature and C-reactive protein that remains elevated. Will obtain nonin vasive venous vascular study of the left lower extremity. Repeat blood cultures have been already o btained and urine culture. Despite no heart murmur, we will obtain echocardiogram. We will discuss with you. Dictated By: MARCUS SCHILLING MD MR/NTS Conf#: [id number] DID#: [id number]
[2016-08-05] MEDS: RIVAROXABAN 10 MG TABLET PO SCH (17:55)
--- NOTE | 2016-08-05 18:54 | PN ---
Date/Time of Note Date/Time of Note DATE: 08/05/16 TIME: 18:39 Assessment/Plan VTE Prophylaxis VTE Prophylaxis Intervention: ambulation Lines/Catheters IV [facility] Type (from [facility] PICC Line Urinary Cath still in place: No Assessment/Plan Chief Complaint/Hosp Course s/p ACL reconstruction with Achilles allograft on 07/12/16, and s/p I&D with cultures on 07/25/16 and again on 07/27/16, 07/31/16 with 2/4 most recent cultures growing scant MRSA. Problems: Subjective 24 Hr Interval Summary Free Text/Dictation Patient seen today after through discussion with Drs. Rosario and Tremayne. Additional workup in progress. Pt. had a fever elevation today. On PE her knee is without effusion with decreased ROM.Slight drainage from tibial wound. ESR= 110and CRP to 15.2.I had a long discussion with patient and family as I did yesterday. We will see what all tests show in am. they understand we may have to remove graft if infection can not be eradicated. We will continue to follow closely. RDF Exam/Review of Systems Vital Signs Vitals Vital Signs Date Time Temp Pulse Resp B/P Pulse Ox O2 Delivery O2 Flow Rate FiO2 08/05/16 07:31 98.1 81 20 124/78 99 08/03/16 17:05 Room Air Intake and Output 08/04/16 08/04/16 08/05/16 15:00 23:00 07:00 Intake Total 250 ml 1950 ml 1800 ml Output Total 0 ml Balance 250 ml 1950 ml 1800 ml Results Result Diagram: 08/05/16 0430 08/05/16 1405 Results 24 hrs Laboratory Tests Test 08/05/16 04:30 08/05/16 13:25 08/05/16 14:05 White Blood Count 4.9 # Red Blood Count 2.83 L Hemoglobin 7.9 L Hematocrit 24.9 L Mean Corpuscular Volume 88.0 Mean Corpuscular Hemoglobin 27.9 L Mean Corpuscular Hemoglobin Concent 31.7 L Red Cell Distribution Width 12.6 Platelet Count 351 Mean Platelet Volume 8.9 Neutrophils % 49.9 Lymphocytes % 27.9 Monocytes % 19.2 H Eosinophils % 2.2 Basophils % 0.2 Nucleated Red Blood Cells % 0.0 Neutrophils # 2.5 Lymphocytes # 1.4 Monocytes # 1.0 H Eosinophils # 0.1 Basophils # 0.0 Nucleated Red Blood Cells # 0.0 Erythrocyte Sedimentation Rate 110 H C-Reactive Protein 15.2 H Urine Color YELLOW Urine Clarity CLEAR Urine pH 6.5 Urine Specific [place] <=1.005 L Urine Ketones NEGATIVE Urine Nitrite NEGATIVE Urine Bilirubin NEGATIVE Urine Urobilinogen 0.2 E.U./dL Urine Leukocyte Esterase NEGATIVE Urine Hemoglobin NEGATIVE Urine Glucose NEGATIVE Urine Total Protein NEGATIVE Sodium Level 133 L Potassium Level 3.8 Chloride Level 103 Carbon Dioxide Level 25 Anion Gap 9 Blood Urea Nitrogen 2 L Creatinine 0.58 Glucose Level 85 Calcium Level 8.8 Phosphorus Level 3.2 Magnesium Level 1.8 Iron Level < 10 L Total Iron Binding Capacity 192 L Percent Iron Saturation Total Bilirubin 0.4 Direct Bilirubin 0.00 Indirect Bilirubin 0.4 Aspartate Amino Transf (AST/SGOT) 26 Alanine Aminotransferase (ALT/SGPT) 36 Alkaline Phosphatase 84 Total Protein 6.8 Albumin 3.1 L Globulin 3.70 H Albumin/Globulin Ratio 0.83 Vitamin B12 Level 616 Vancomycin Level Trough 12.1 Medications Medications Current Medications Senna/Docusate Sodium (Senokot-S) 1 tab BID PO Last administered on 08/01/16 08:53; Admin Dose 1 TAB; Start 07/25/16 at 09:00 Magnesium Hydroxide (Milk Of Mag) 30 ml BID PRN PO CONSTIPATION Last administered on 07/27/16 20:02; Admin Dose 30 ML; Start 07/25/16 at 00:00 Magnesium Hydroxide (Milk Of Mag) 30 ml HS PO Last administered on 07/30/16 20 :24; Admin Dose 30 ML; Start 07/26/16 at 21:00 Bisacodyl (Dulcolax Supp) 10 mg DAILY PRN [place] CONSTIPATION; Start 07/25/16 at 00 :00 Sodium Biphosphate/ Sodium Phosphate (Fleet Enema) 133 ml DAILY PRN [place] CONSTIPATION; Start 07/25/16 at 00:00 Acetaminophen (Tylenol Tab) 1,000 mg Q4H PRN PO TEMP GREATER THAN 100.4F Last administered on 08/05/16 14:17; Admin Dose 1,000 MG; Start 07/25/16 at 00:00 Oxycodone/ Acetaminophen (Percocet (5/ 325)) 1 tab Q4H PRN PO PAIN; Start 07/25 at 00:00 Oxycodone/ Acetaminophen (Percocet (5/ 325)) 2 tab Q4H PRN PO PAIN Last administered on 07/26/16 21:11; Admin Dose 2 TAB; Start 07/25/16 at 00:00 Morphine Sulfate (morphine) 5 mg Q4H PRN IV PAIN LEVEL 7-10 Last administered on 07/29/16 14:54; Admin Dose 5 MG; Start 07/25/16 at 00:00 Ondansetron HCl (Zofran Inj) 4 mg Q4H PRN IV NAUSEA AND/OR VOMITING Last administered on 08/04/16 18:35; Admin Dose 4 MG; Start 07/25/16 at 00:00 Diphenhydramine HCl (Benadryl) 25 mg Q4H PRN PO ITCHING; Start 07/25/16 at 00: 00 Bisacodyl (Dulcolax) 10 mg DAILY PRN PO CONSTIPATION Last administered on 08:19; Admin Dose 10 MG; Start 07/26/16 at 09:30 Vancomycin HCl (Vanco Iv Per Pharmacy) PER PHARMACY DOSING NOTE XX ; Start 07/25 at 18:30 Mupirocin (Bactroban) 1 applic BID TOP Last administered on 08/05/16 09:21; Admin Dose 1 APPLIC; Start 07/27/16 at 21:00 Acetaminophen/ Hydrocodone Bitart ([place] (5/325)) 1 tab Q4H PRN GTB PAIN LEVEL 1-5 Last administered on 07/30/16 23:35; Admin Dose 1 TAB; Start 07/27/16 at 16 :30 Acetaminophen/ Hydrocodone Bitart ([place] (5/325)) 2 tab Q4H PRN PO PAIN LEVEL 6 -10 Last administered on 07/30/16 06:19; Admin Dose 2 TAB; Start 07/27/16 at 16 :30 IV Flush 10 ml 10 ml PRN PRN IV FLUSH LINE Last administered on 07/29/16 04:44 ; Admin Dose 10 ML; Start 07/27/16 at 20:00 Vancomycin HCl (Vancocin) 250 ml @ 125 mls/hr Q8H IVPB Last administered on 16:06; Admin Dose 125 MLS/HR; Start 4/24/17 at 15:00 Rifampin 600 mg 600 mg DAILY PO Last administered on 08/05/16 09:16; Admin Dose 600 MG; Start 07/29/16 at 18:00 Dextrose/Lactated Ringer's (D5-Lr) 1,000 ml @ 100 mls/hr Q10H IV Last administered on 08/05/16 06:16; Admin Dose 100 MLS/HR; Start 07/31/16 at 12:30 Loperamide HCl (Imodium Cap) 2 mg QID PRN PO DIARRHEA Last administered on 08/02 08:01; Admin Dose 2 MG; Start 08/02/16 at 08:00 MERLYN TAFOYA MD August 05, 2016 18:53
[2016-08-05 19:22] VITALS: BP 111/65; RESP 20
[2016-08-05] MEDS: MAGNESIUM HYDROXIDE 30ML CUP PO SCH (20:36)
[2016-08-06] MEDS: ACETAMINOPHEN 500 MG TAB PO PRN ×3 (03:45→22:04)
[2016-08-06] MEDS: VANCOMYCIN 1 GM in NS 250 ML IVPB SCH ×4 (06:23→23:08)
[2016-08-06 06:37] LABS: CREATININE 0.59 mg/dl (0.44-1.00)
[2016-08-06 07:27] VITALS: BP 144/70; RESP 18
[2016-08-06 08:03] VITALS: BP 128/70; RESP 20
--- NOTE | 2016-08-06 08:38 | CONS ---
Date/Time of Note Date/Time of Note DATE: 08/06/16 TIME: 08:35 Assessment/Plan Assessment/Plan Additional Assessment/Plan 1. Anemia in part sec to iron def, will start iv iron. 2. Septic joint, ortho to decide on subsequent intervention 3. Rec ht echo, venous study and labs with pt and parents Consultation Date/Type/Reason Admit Date/Time Jul 24, 2016 at 17:51 Initial Consult Date Detailed Summary Respiratory: No cough, No shortness of breath Cardiovascular: No chest pain Gastrointestinal: no complaints Genitourinary: no complaints Musculoskeletal: bone/joint pain (mild left knee pain) Exam/Review of Systems Vital Signs Vitals Vital Signs Date Time Temp Pulse Resp B/P Pulse Ox O2 Delivery O2 Flow Rate FiO2 08/06/16 08:03 97.5 95 20 128/70 95 08/03/16 17:05 Room Air Intake and Output 08/05/16 08/05/16 08/06/16 15:00 23:00 07:00 Intake Total 250 ml 2070 ml 1450 ml Balance 250 ml 2070 ml 1450 ml Exam Neck: No jvd Respiratory: clear to auscultation Cardiovascular: regular rate and rhythm Gastrointestinal: soft Extremities: No tenderness (no calf pain bilat) Results Result Diagram: 08/05/16 0430 08/06/16 0500 Results 24 hrs Laboratory Tests Test 08/05/16 13:25 08/05/16 14:05 08/05/16 23:30 08/06/16 05:00 Urine Color YELLOW Urine Clarity CLEAR Urine pH 6.5 Urine Specific [place] <=1.005 L Urine Ketones NEGATIVE Urine Nitrite NEGATIVE Urine Bilirubin NEGATIVE Urine Urobilinogen 0.2 E.U./dL Urine Leukocyte Esterase NEGATIVE Urine Hemoglobin NEGATIVE Urine Glucose NEGATIVE Urine Total Protein NEGATIVE Sodium Level 133 L Potassium Level 3.8 Chloride Level 103 Carbon Dioxide Level 25 Anion Gap 9 Blood Urea Nitrogen 2 L 4 L Creatinine 0.58 0.59 Glucose Level 85 Calcium Level 8.8 Phosphorus Level 3.2 Magnesium Level 1.8 Iron Level < 10 L Total Iron Binding Capacity 192 L Percent Iron Saturation Total Bilirubin 0.4 Direct Bilirubin 0.00 Indirect Bilirubin 0.4 Aspartate Amino Transf (AST/SGOT) 26 Alanine Aminotransferase (ALT/SGPT) 36 Alkaline Phosphatase 84 Total Protein 6.8 Albumin 3.1 L Globulin 3.70 H Albumin/Globulin Ratio 0.83 Vitamin B12 Level 616 Vancomycin Level Trough 12.1 Stool Occult Blood NEGATIVE Medications Medications Current Medications Senna/Docusate Sodium (Senokot-S) 1 tab BID PO Last administered on 08/01/16 08:53; Admin Dose 1 TAB; Start 07/25/16 at 09:00 Magnesium Hydroxide (Milk Of Mag) 30 ml BID PRN PO CONSTIPATION Last administered on 07/27/16 20:02; Admin Dose 30 ML; Start 07/25/16 at 00:00 Magnesium Hydroxide (Milk Of Mag) 30 ml HS PO Last administered on 07/30/16 20 :24; Admin Dose 30 ML; Start 07/26/16 at 21:00 Bisacodyl (Dulcolax Supp) 10 mg DAILY PRN [place] CONSTIPATION; Start 07/25/16 at 00 :00 Sodium Biphosphate/ Sodium Phosphate (Fleet Enema) 133 ml DAILY PRN [place] CONSTIPATION; Start 07/25/16 at 00:00 Acetaminophen (Tylenol Tab) 1,000 mg Q4H PRN PO TEMP GREATER THAN 100.4F Last administered on 08/06/16 03:45; Admin Dose 1,000 MG; Start 07/25/16 at 00:00 Oxycodone/ Acetaminophen (Percocet (5/ 325)) 1 tab Q4H PRN PO PAIN; Start 07/25 at 00:00 Oxycodone/ Acetaminophen (Percocet (5/ 325)) 2 tab Q4H PRN PO PAIN Last administered on 07/26/16 21:11; Admin Dose 2 TAB; Start 07/25/16 at 00:00 Morphine Sulfate (morphine) 5 mg Q4H PRN IV PAIN LEVEL 7-10 Last administered on 07/29/16 14:54; Admin Dose 5 MG; Start 07/25/16 at 00:00 Ondansetron HCl (Zofran Inj) 4 mg Q4H PRN IV NAUSEA AND/OR VOMITING Last administered on 08/04/16 18:35; Admin Dose 4 MG; Start 07/25/16 at 00:00 Diphenhydramine HCl (Benadryl) 25 mg Q4H PRN PO ITCHING; Start 07/25/16 at 00: 00 Bisacodyl (Dulcolax) 10 mg DAILY PRN PO CONSTIPATION Last administered on 08:19; Admin Dose 10 MG; Start 07/26/16 at 09:30 Vancomycin HCl (Vanco Iv Per Pharmacy) PER PHARMACY DOSING NOTE XX ; Start 07/25 at 18:30 Mupirocin (Bactroban) 1 applic BID TOP Last administered on 08/05/16 21:02; Admin Dose 1 APPLIC; Start 07/27/16 at 21:00 Acetaminophen/ Hydrocodone Bitart ([place] (5/325)) 1 tab Q4H PRN GTB PAIN LEVEL 1-5 Last administered on 07/30/16 23:35; Admin Dose 1 TAB; Start 07/27/16 at 16 :30 Acetaminophen/ Hydrocodone Bitart ([place] (5/325)) 2 tab Q4H PRN PO PAIN LEVEL 6 -10 Last administered on 07/30/16 06:19; Admin Dose 2 TAB; Start 07/27/16 at 16 :30 IV Flush 10 ml 10 ml PRN PRN IV FLUSH LINE Last administered on 07/29/16 04:44 ; Admin Dose 10 ML; Start 07/27/16 at 20:00 Vancomycin HCl (Vancocin) 250 ml @ 125 mls/hr Q8H IVPB Last administered on 06:23; Admin Dose 125 MLS/HR; Start 07/29/16 at 15:00 Rifampin 600 mg 600 mg DAILY PO Last administered on 08/05/16 09:16; Admin Dose 600 MG; Start 07/29/16 at 18:00 Dextrose/Lactated Ringer's (D5-Lr) 1,000 ml @ 100 mls/hr Q10H IV Last administered on 08/05/16 21:02; Admin Dose 100 MLS/HR; Start 07/31/16 at 12:30 Loperamide HCl (Imodium Cap) 2 mg QID PRN PO DIARRHEA Last administered on 08/02 08:01; Admin Dose 2 MG; Start 08/02/16 at 08:00 MARCUS SCHILLING MD August 06, 2016 08:38
[2016-08-06] MEDS: SENNA/DOCUSATE NA (8.6MG/50MG) TAB PO SCH ×2 (09:00→21:00)
[2016-08-06] MEDS: RIFAMPIN 300 MG CAP PO SCH (09:36)
[2016-08-06] MEDS: MUPIROCIN 2% 22 GM OINT TOP SCH ×2 (09:37→21:16)
[2016-08-06] MEDS: SOD FERRIC GLUC COMPLX 125 MG in SOD CHLORIDE 0.9% 100 ML IVPB SCH (11:23)
[2016-08-06] MEDS: DEXTROSE 5%-LR 1,000 ML IV SCH (14:39)
--- NOTE | 2016-08-06 15:17 | PN ---
DATE: 08/06/2016 INFECTIOUS DISEASE PROGRESS NOTE HISTORY OF PRESENT ILLNESS: Graciela continues to feel poorly. She had a temperature spike to 101.5 y esterday and her fever is being influenced by Tylenol, which she is taking for pain. Her T-max docu mented was 99.9 but essentially was up to 101.5 yesterday. PHYSICAL EXAMINATION: CHEST: Her chest is clear. HEART: Without murmur or gallop. ABDOMEN: Soft. EXTREMITIES: The left knee is swollen and warm, but without any drainage at this point. LABORATORY DATA: From 08/05/2016, white count was 4.9, but her sed rate was 110. MICROBIOLOGY: Her urine cultures, blood cultures were all negative from yesterday and have been neg ative since 07/31/2016 when she grew out methicillin-resistant Staphylococcus aureus from her wound. IMAGING: A chest x-ray was negative, no evidence of cardiopulmonary disease. She has a left upper extremity PICC line in place which does not appear to be infected, although I i magine this can be a source as well. PLAN: My plan is to continue vancomycin and rifampin, to order an indium labeled white cell study t o rule out any other source of infection. I will dictate my findings to Dr. Valle. Dictated By: JENISE LEONG MD, JD/JUAN Conf#: [id number] DID#: [id number]
[2016-08-06] MEDS: RIVAROXABAN 10 MG TABLET PO SCH (17:21)
[2016-08-06] MEDS ORDERED: traMADol 50 MG TAB GTB SCH (18:00)
[2016-08-06] MEDS ORDERED: traMADol 50 MG TAB GTB PRN (19:00)
[2016-08-06 19:38] VITALS: BP 129/61; RESP 19
--- NOTE | 2016-08-06 20:11 | PN ---
Date/Time of Note Date/Time of Note DATE: 08/06/16 TIME: 20:05 Assessment/Plan VTE Prophylaxis VTE Prophylaxis Intervention: ambulation, other (Xarelto) Lines/Catheters IV Catheter Type (from Nrs): PICC Line Central line still needed: Yes Urinary Cath still in place: No Assessment/Plan Chief Complaint/Hosp Course s/p ACL reconstruction with Achilles allograft on 07/12/16, and s/p I&D with cultures on 07/25/16 and again on 07/27/16, 07/31/16 with 2/4 most recent cultures growing scant MRSA. Retained Achilles Allograft. Problems: Assessment/Plan 1. ID: We had long discussion with patient and her family, they would like to have a family friend (Dr. Hammond), who is an infectious disease specialist weigh- in on her condition. We encouraged them to have her records sent to him today and spoke with Dr. Hammond as well. 2. ID: Discussed with Dr. Casper and Dr. Durant (ID). CXR, Echocardiogram and lower extremity dopplers negative for any infectious etiology. Family and ID would like to obtain an indium WBC tagged scan to evaluate for continued infection. CRP still elevated and patient anemic. Possible continued infection due to retained Achilles allograft and patient and family informed that she may need graft resection based on these results. 3. 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 Will obtain a CPM for use in the hospital/home. WBAT, ok for ROM. 4. DVT PPX: Xarelto, ambulation, Compression stocking, SCD's 5. Pain control: Will dc Tylenol and use Ultram, as to not mask any fevers. 6. Final plan pending WBC scan, possible OR tomorrow pending scan and final recommendations from ID. Subjective 24 Hr Interval Summary Subjective hx not possible: other (Patient reports feeling much better. Endorses fatigue. Continued low grade fevers, but minimal knee pain. Denies sweats/shortness of breath. ) Exam/Review of Systems Vital Signs Vitals Vital Signs Date Time Temp Pulse Resp B/P Pulse Ox O2 Delivery O2 Flow Rate FiO2 08/06/16 19:38 98.5 86 19 129/61 99 08/03/16 17:05 Room Air Intake and Output 08/05/16 08/05/16 08/06/16 15:00 23:00 07:00 Intake Total 250 ml 2070 ml 1450 ml Balance 250 ml 2070 ml 1450 ml Exam Constitutional: alert, oriented Respiratory: normal air movement Cardiovascular: regular rate and rhythm Musculoskeletal: other (Left knee with small effusion, improved. No erythema. Very small scant serosanginous drainage on dressing, less than prior day. Knee ROM 15-60. NVID. No calf tenderness. ) Skin: other Results Result Diagram: 08/05/16 0430 08/06/16 0500 Results 24 hrs Laboratory Tests Test 08/05/16 23:30 08/06/16 04:30 08/06/16 05:00 Stool Occult Blood NEGATIVE NEGATIVE Blood Urea Nitrogen 4 L Creatinine 0.59 Ferritin 116.0 Medications Medications Current Medications Senna/Docusate Sodium (Senokot-S) 1 tab BID PO Last administered on 08/01/16 08:53; Admin Dose 1 TAB; Start 07/25/16 at 09:00 Magnesium Hydroxide (Milk Of Mag) 30 ml BID PRN PO CONSTIPATION Last administered on 07/27/16 20:02; Admin Dose 30 ML; Start 07/25/16 at 00:00 Magnesium Hydroxide (Milk Of Mag) 30 ml HS PO Last administered on 07/30/16 20 :24; Admin Dose 30 ML; Start 07/26/16 at 21:00 Bisacodyl (Dulcolax Supp) 10 mg DAILY PRN [place] CONSTIPATION; Start 07/25/16 at 00 :00 Sodium Biphosphate/ Sodium Phosphate (Fleet Enema) 133 ml DAILY PRN [place] CONSTIPATION; Start 07/25/16 at 00:00 Acetaminophen (Tylenol Tab) 1,000 mg Q4H PRN PO TEMP GREATER THAN 101F Last administered on 08/06/16 11:28; Admin Dose 1,000 MG; Start 07/25/16 at 00:00 Oxycodone/ Acetaminophen (Percocet (5/ 325)) 1 tab Q4H PRN PO PAIN; Start 07/25 at 00:00 Oxycodone/ Acetaminophen (Percocet (5/ 325)) 2 tab Q4H PRN PO PAIN Last administered on 07/26/16 21:11; Admin Dose 2 TAB; Start 07/25/16 at 00:00 Morphine Sulfate (morphine) 5 mg Q4H PRN IV PAIN LEVEL 7-10 Last administered on 07/29/16 14:54; Admin Dose 5 MG; Start 07/25/16 at 00:00 Ondansetron HCl (Zofran Inj) 4 mg Q4H PRN IV NAUSEA AND/OR VOMITING Last administered on 08/04/16 18:35; Admin Dose 4 MG; Start 07/25/16 at 00:00 Diphenhydramine HCl (Benadryl) 25 mg Q4H PRN PO ITCHING; Start 07/25/16 at 00: 00 Bisacodyl (Dulcolax) 10 mg DAILY PRN PO CONSTIPATION Last administered on 08:19; Admin Dose 10 MG; Start 07/26/16 at 09:30 Vancomycin HCl (Vanco Iv Per Pharmacy) PER PHARMACY DOSING NOTE XX ; Start 07/25 at 18:30 Mupirocin (Bactroban) 1 applic BID TOP Last administered on 08/06/16 09:37; Admin Dose 1 APPLIC; Start 07/27/16 at 21:00 Acetaminophen/ Hydrocodone Bitart ([place] (5/325)) 1 tab Q4H PRN GTB PAIN LEVEL 1-5 Last administered on 07/30/16 23:35; Admin Dose 1 TAB; Start 07/27/16 at 16 :30 Acetaminophen/ Hydrocodone Bitart ([place] (5/325)) 2 tab Q4H PRN PO PAIN LEVEL 6 -10 Last administered on 07/30/16 06:19; Admin Dose 2 TAB; Start 07/27/16 at 16 :30 IV Flush 10 ml 10 ml PRN PRN IV FLUSH LINE Last administered on 07/29/16 04:44 ; Admin Dose 10 ML; Start 07/27/16 at 20:00 Vancomycin HCl (Vancocin) 250 ml @ 125 mls/hr Q8H IVPB Last administered on 14:45; Admin Dose 125 MLS/HR; Start 07/29/16 at 15:00 Rifampin 600 mg 600 mg DAILY PO Last administered on 08/06/16 09:36; Admin Dose 600 MG; Start 07/29/16 at 18:00 Dextrose/Lactated Ringer's (D5-Lr) 1,000 ml @ 40 mls/hr Q24H IV Last administered on 08/06/16 14:39; Admin Dose 40 MLS/HR; Start 07/31/16 at 12:30 Loperamide HCl 2 mg 2 mg QID PRN PO DIARRHEA Last administered on 08/02/16 08: 01; Admin Dose 2 MG; Start 08/02/16 at 08:00 Ferric Sodium Gluconate Complex/ Sodium Chloride (Ferrlecit/NS) 110 ml @ 110 mls/hr Q24H IVPB Last administered on 08/06/16 11:23; Admin Dose 110 MLS/HR; Start 08/06/16 at 10:00; Stop 08/10/16 at 10:59 Tramadol HCl (Ultram) 50 mg Q6H PRN GTB pain; Start 08/06/16 at 19:00 MERLYN TAFOYA MD August 06, 2016 20:11
[2016-08-06] MEDS: MAGNESIUM HYDROXIDE 30ML CUP PO SCH (21:00)
[2016-08-07] VITALS (20 sets, daily range): BP systolic 118–139; BP diastolic 72–84; PULSE 74–86; RESP 12–19
[2016-08-07 05:03] LABS: ADD SCAN DIFF NO
[2016-08-07 05:21] LABS: POTASSIUM 3.7 mmol/L (3.5-5.1)
[2016-08-07 05:24] LABS: CREATININE 0.53 mg/dl (0.44-1.00)
[2016-08-07 05:25] LABS: CALCIUM 8.4 mg/dl (8.4-10.2)
[2016-08-07] MEDS: VANCOMYCIN 1 GM in NS 250 ML IVPB SCH ×4 (06:31→23:08)
--- NOTE | 2016-08-07 08:41 | CONS ---
Date/Time of Note Date/Time of Note DATE: 08/07/16 TIME: 08:39 Assessment/Plan Assessment/Plan Additional Assessment/Plan 1. Left knee infection, surgery is planned this pm, received Xarelto last night , will check prox and ptt and give give 2 units packed cells 2. Anemia, receiving iv iron Consultation Date/Type/Reason Admit Date/Time Jul 24, 2016 at 17:51 Detailed Summary Respiratory: No cough, No shortness of breath Cardiovascular: No chest pain Gastrointestinal: no complaints Genitourinary: no complaints Musculoskeletal: bone/joint pain (mild left knee pain) Exam/Review of Systems Vital Signs Vitals Vital Signs Date Time Temp Pulse Resp B/P Pulse Ox O2 Delivery O2 Flow Rate FiO2 08/07/16 07:59 99.4 78 18 134/82 99 08/03/16 17:05 Room Air Intake and Output 08/06/16 08/06/16 08/07/16 15:00 23:00 07:00 Intake Total 110 ml 1150 ml 1050 ml Balance 110 ml 1150 ml 1050 ml Exam Neck: No jvd Respiratory: clear to auscultation Cardiovascular: regular rate and rhythm Gastrointestinal: soft Extremities: No edema (and no calf tend bilat) Results Result Diagram: 08/05/16 0430 08/07/16 0550 Results 24 hrs Laboratory Tests Test 08/07/16 04:25 08/07/16 05:50 Sodium Level 138 Potassium Level 3.7 Chloride Level 105 Carbon Dioxide Level 22 Anion Gap 15 Blood Urea Nitrogen 2 L Creatinine 0.53 Glucose Level 491 #*H 88 # Calcium Level 8.4 C-Reactive Protein 6.3 H Medications Medications Current Medications Senna/Docusate Sodium (Senokot-S) 1 tab BID PO Last administered on 08/01/16 08:53; Admin Dose 1 TAB; Start 07/25/16 at 09:00 Magnesium Hydroxide (Milk Of Mag) 30 ml BID PRN PO CONSTIPATION Last administered on 07/27/16 20:02; Admin Dose 30 ML; Start 07/25/16 at 00:00 Magnesium Hydroxide (Milk Of Mag) 30 ml HS PO Last administered on 07/30/16 20 :24; Admin Dose 30 ML; Start 07/26/16 at 21:00 Bisacodyl (Dulcolax Supp) 10 mg DAILY PRN [place] CONSTIPATION; Start 07/25/16 at 00 :00 Sodium Biphosphate/ Sodium Phosphate (Fleet Enema) 133 ml DAILY PRN [place] CONSTIPATION; Start 07/25/16 at 00:00 Oxycodone/ Acetaminophen (Percocet (5/ 325)) 1 tab Q4H PRN PO PAIN; Start 07/25 at 00:00 Oxycodone/ Acetaminophen (Percocet (5/ 325)) 2 tab Q4H PRN PO PAIN Last administered on 07/26/16 21:11; Admin Dose 2 TAB; Start 07/25/16 at 00:00 Morphine Sulfate (morphine) 5 mg Q4H PRN IV PAIN LEVEL 7-10 Last administered on 07/29/16 14:54; Admin Dose 5 MG; Start 07/25/16 at 00:00 Ondansetron HCl (Zofran Inj) 4 mg Q4H PRN IV NAUSEA AND/OR VOMITING Last administered on 08/04/16 18:35; Admin Dose 4 MG; Start 07/25/16 at 00:00 Diphenhydramine HCl (Benadryl) 25 mg Q4H PRN PO ITCHING; Start 07/25/16 at 00: 00 Bisacodyl (Dulcolax) 10 mg DAILY PRN PO CONSTIPATION Last administered on 08:19; Admin Dose 10 MG; Start 07/26/16 at 09:30 Vancomycin HCl (Vanco Iv Per Pharmacy) PER PHARMACY DOSING NOTE XX ; Start 07/25 at 18:30 Mupirocin (Bactroban) 1 applic BID TOP Last administered on 08/06/16 21:16; Admin Dose 1 APPLIC; Start 07/27/16 at 21:00 Acetaminophen/ Hydrocodone Bitart ([place] (5/325)) 1 tab Q4H PRN GTB PAIN LEVEL 1-5 Last administered on 07/30/16 23:35; Admin Dose 1 TAB; Start 07/27/16 at 16 :30 Acetaminophen/ Hydrocodone Bitart ([place] (5/325)) 2 tab Q4H PRN PO PAIN LEVEL 6 -10 Last administered on 07/30/16 06:19; Admin Dose 2 TAB; Start 07/27/16 at 16 :30 IV Flush (NS 10 ml) 10 ml PRN PRN IV FLUSH LINE Last administered on 07/29/16 04:44; Admin Dose 10 ML; Start 07/27/16 at 20:00 Rifampin 600 mg 600 mg DAILY PO Last administered on 08/06/16 09:36; Admin Dose 600 MG; Start 07/29/16 at 18:00 Dextrose/Lactated Ringer's (D5-Lr) 1,000 ml @ 40 mls/hr Q24H IV Last administered on 08/06/16 14:39; Admin Dose 40 MLS/HR; Start 07/31/16 at 12:30 Loperamide HCl 2 mg 2 mg QID PRN PO DIARRHEA Last administered on 08/02/16 08: 01; Admin Dose 2 MG; Start 08/02/16 at 08:00 Ferric Sodium Gluconate Complex/ Sodium Chloride (Ferrlecit/NS) 110 ml @ 110 mls/hr Q24H IVPB Last administered on 08/06/16 11:23; Admin Dose 110 MLS/HR; Start 08/06/16 at 10:00; Stop 08/10/16 at 10:59 Tramadol HCl (Ultram) 50 mg Q6H PRN GTB pain; Start 08/06/16 at 19:00 Acetaminophen 1000 mg 1,000 mg Q4H PRN PO PAIN AND OR ELEVATED TEMP>100; Start 08/06/16 at 23:30 Vancomycin HCl (Vancocin) 250 ml @ 125 mls/hr Q8H IVPB ; Start 08/07/16 at 15:00 MARCUS SCHILLING MD August 07, 2016 08:41
[2016-08-07] MEDS: SENNA/DOCUSATE NA (8.6MG/50MG) TAB PO SCH ×2 (09:00→21:00)
[2016-08-07] MEDS: MUPIROCIN 2% 22 GM OINT TOP SCH ×2 (09:03→21:47)
[2016-08-07] MEDS: RIFAMPIN 300 MG CAP PO SCH (09:03)
[2016-08-07 09:29] LABS: INR 1.1; PROTIME 14.2 Sec (12.2-14.2); PT RATIO 1.1
[2016-08-07 09:30] LABS: PARTIAL THROMBOPLASTIN TIME 48.1 Sec (25.0-35.0)
--- NOTE | 2016-08-07 09:55 | CONS ---
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 continue to follow ESR and CRP for reponse to therapy on a weekly basis anticipate at least a 6 week course of treatment. will follow with you Problems: Consultation Date/Type/Reason Admit Date/Time Jul 24, 2016 at 17:51 Date of Consultation: August 07, 2016 Type of Consultation: ID Hx of Present Illness pt was admitted on 07/24 due to L knee joint infection. She had ACL repair with cadaver graft on 07/12/16 She was doing fine until 07/21 when she felt unwell. [place] the [place] and was well but at night she did not with fatigue. The following morning she developed new pain to the L knee and then the following day she had fevers and a night sweat. The pain to the knee has improved. She has had 3 washout procedures done and each time it has grown MRSA. She is still get fevers which exhausts her. No SOB, cough, dysuria, diarrhea, vomiting. No abd pain. she is scheduled for a WBC scan today She is to get a washout later today and possible removal of the cadaver graft. Constitutional: improved Respiratory: No cough, No shortness of breath Cardiovascular: No chest pain Gastrointestinal: no complaints Genitourinary: no complaints Musculoskeletal: bone/joint pain (mild left knee pain) Skin: no complaints Psychological: no complaints Past Surgical History R ACL repair Social History Smoking Status: Never smoker Exam/Review of Systems Vital Signs Vitals Vital Signs Date Time Temp Pulse Resp B/P Pulse Ox O2 Delivery O2 Flow Rate FiO2 08/07/16 07:59 99.4 78 18 134/82 99 08/03/16 17:05 Room Air Intake and Output 08/06/16 08/06/16 08/07/16 14:59 22:59 06:59 Intake Total 110 ml 1150 ml 1050 ml Balance 110 ml 1150 ml 1050 ml Exam Constitutional: alert, oriented Head: normocephalic Eyes: nl sclera ENMT: mucosa pink and moist Neck: supple Respiratory: clear to auscultation Cardiovascular: regular rate and rhythm Gastrointestinal: non-tender, soft Extremities: other (L knee is wrapped but it does not feel warmer than R leg) Results Result Diagram: 08/05/16 0430 08/07/16 0550 Results 24 hrs Laboratory Tests Test 08/07/16 04:25 08/07/16 05:50 08/07/16 09:05 Erythrocyte Sedimentation Rate 79 H Sodium Level 138 Potassium Level 3.7 Chloride Level 105 Carbon Dioxide Level 22 Anion Gap 15 Blood Urea Nitrogen 2 L Creatinine 0.53 Glucose Level 491 #*H 88 # Calcium Level 8.4 C-Reactive Protein 6.3 H Prothrombin Time 14.2 Prothrombin Time Ratio 1.1 INR International Normalized Ratio 1.10 Activated Partial Thromboplast Time 48.1 H Medications Medications Current Medications Senna/Docusate Sodium (Senokot-S) 1 tab BID PO Last administered on 08/01/16 08:53; Admin Dose 1 TAB; Start 07/25/16 at 09:00 Magnesium Hydroxide (Milk Of Mag) 30 ml BID PRN PO CONSTIPATION Last administered on 07/27/16 20:02; Admin Dose 30 ML; Start 07/25/16 at 00:00 Magnesium Hydroxide (Milk Of Mag) 30 ml HS PO Last administered on 07/30/16 20 :24; Admin Dose 30 ML; Start 07/26/16 at 21:00 Bisacodyl (Dulcolax Supp) 10 mg DAILY PRN [place] CONSTIPATION; Start 07/25/16 at 00 :00 Sodium Biphosphate/ Sodium Phosphate (Fleet Enema) 133 ml DAILY PRN [place] CONSTIPATION; Start 07/25/16 at 00:00 Oxycodone/ Acetaminophen (Percocet (5/ 325)) 1 tab Q4H PRN PO PAIN; Start 07/25 at 00:00 Oxycodone/ Acetaminophen (Percocet (5/ 325)) 2 tab Q4H PRN PO PAIN Last administered on 07/26/16 21:11; Admin Dose 2 TAB; Start 07/25/16 at 00:00 Morphine Sulfate (morphine) 5 mg Q4H PRN IV PAIN LEVEL 7-10 Last administered on 07/29/16 14:54; Admin Dose 5 MG; Start 07/25/16 at 00:00 Ondansetron HCl (Zofran Inj) 4 mg Q4H PRN IV NAUSEA AND/OR VOMITING Last administered on 08/04/16 18:35; Admin Dose 4 MG; Start 07/25/16 at 00:00 Diphenhydramine HCl (Benadryl) 25 mg Q4H PRN PO ITCHING; Start 07/25/16 at 00: 00 Bisacodyl (Dulcolax) 10 mg DAILY PRN PO CONSTIPATION Last administered on 08:19; Admin Dose 10 MG; Start 07/26/16 at 09:30 Vancomycin HCl (Vanco Iv Per Pharmacy) PER PHARMACY DOSING NOTE XX ; Start 07/25 at 18:30 Mupirocin (Bactroban) 1 applic BID TOP Last administered on 08/07/16 09:03; Admin Dose 1 APPLIC; Start 07/27/16 at 21:00 Acetaminophen/ Hydrocodone Bitart ([place] (5/325)) 1 tab Q4H PRN GTB PAIN LEVEL 1-5 Last administered on 07/30/16 23:35; Admin Dose 1 TAB; Start 07/27/16 at 16 :30 Acetaminophen/ Hydrocodone Bitart ([place] (5/325)) 2 tab Q4H PRN PO PAIN LEVEL 6 -10 Last administered on 07/30/16 06:19; Admin Dose 2 TAB; Start 07/27/16 at 16 :30 IV Flush (NS 10 ml) 10 ml PRN PRN IV FLUSH LINE Last administered on 07/29/16 04:44; Admin Dose 10 ML; Start 07/27/16 at 20:00 Rifampin 600 mg 600 mg DAILY PO Last administered on 08/07/16 09:03; Admin Dose 600 MG; Start 07/29/16 at 18:00 Dextrose/Lactated Ringer's (D5-Lr) 1,000 ml @ 20 mls/hr Q24H IV Last administered on 08/06/16 14:39; Admin Dose 40 MLS/HR; Start 07/31/16 at 12:30 Loperamide HCl 2 mg 2 mg QID PRN PO DIARRHEA Last administered on 08/02/16 08: 01; Admin Dose 2 MG; Start 08/02/16 at 08:00 Ferric Sodium Gluconate Complex/ Sodium Chloride (Ferrlecit/NS) 110 ml @ 110 mls/hr Q24H IVPB Last administered on 08/06/16 11:23; Admin Dose 110 MLS/HR; Start 08/06/16 at 10:00; Stop 08/10/16 at 10:59 Tramadol HCl (Ultram) 50 mg Q6H PRN GTB pain; Start 08/06/16 at 19:00 Acetaminophen 1000 mg 1,000 mg Q4H PRN PO PAIN AND OR ELEVATED TEMP>100; Start 08/06/16 at 23:30 Vancomycin HCl (Vancocin) 250 ml @ 125 mls/hr Q8H IVPB ; Start 08/07/16 at 15:00 SYLVIE ALBARADO MD August 07, 2016 09:55
[2016-08-07 10:54] LABS: BASOPHILS % 0.3 % (0.0-2.0); EOSINOPHILS # 0.1 10^3/ul (0.0-0.5); EOSINOPHILS % 2.4 % (0.0-7.0); HEMATOCRIT 22.1 % (37.0-47.0); HEMOGLOBIN 7.2 g/dl (12.0-16.0); LYMPHOCYTES # 1.1 10^3/ul (0.8-2.9); LYMPHOCYTES % 39.5 % (15.0-51.0); MEAN CORPUSCULAR HEMOGLOBIN 27.9 pg (29.0-33.0); MEAN CORPUSCULAR HGB CONC 32.6 g/dl (32.0-37.0); MEAN CORPUSCULAR VOLUME 85.7 fl (82.0-101.0); MEAN PLATELET VOLUME 9.5 fl (7.4-10.4); MONOCYTE # 0.6 10^3/ul (0.3-0.9); MONOCYTES % 22.4 % (0.0-11.0); NEUTROPHILS % 35.1 % (39.0-77.0); PLATELET COUNT 307 10^3/UL (140-415); RED BLOOD COUNT 2.58 10^6/ul (4.20-5.40); RED CELL DISTRIBUTION WIDTH 12.6 % (11.5-14.5); WHITE BLOOD COUNT 2.9 10^3/ul (4.8-10.8)
[2016-08-07] MEDS: SOD FERRIC GLUC COMPLX 125 MG in SOD CHLORIDE 0.9% 100 ML IVPB SCH (10:59)
[2016-08-07] MEDS: ONDANSETRON 4 MG INJ IV PRN (11:57)
--- NOTE | 2016-08-07 11:58 | RADRPT ---
PROCEDURE: Indium-111 labeled white blood cell scan CLINICAL INDICATION: 41 -year-old patient with fever and leukocytosis. TECHNIQUE: Following the intravenous injection of 0.4 mCi of Indium-111 labeled white blood cells, whole body anterior and posterior planar images were obtained 24 hours post injection. COMPARISON: No prior indium scans. FINDINGS: Mildly to moderately increased activity is seen surrounding the left knee as compared to the right. No other definite abnormal areas of increased activity are seen in the study, including visualized p ortions of the head and neck, chest, abdomen, pelvis and upper and lower. Physiologic uptake is noted in the liver and spleen. IMPRESSION: 1. Mildly to moderately increased activity surrounding the left knee joint likely due to inflammato ry/infectious process. 2. No other definite abnormal focal areas of increased activity. RPTAT: HH .Kym Chao MD, Date Time Electronically viewed and signed by .Kym Chao MD, on 08/07/2016 11:57 .L/
[2016-08-07] MEDS: ACETAMINOPHEN 1000MG/100ML IV 100 ML IVPB PRN (14:23)
[2016-08-07] MEDS: DEXTROSE 5%-LR 1,000 ML IV SCH (14:30)
[2016-08-07] MEDS ORDERED: BUPIVACAINE 0.5% (SDV) 30 ML INJ ONE (15:15)
[2016-08-07] MEDS ORDERED: POLYMYXIN B 500000 UNIT INJ ONE (15:16)
[2016-08-07] MEDS ORDERED: ROPIVACAINE 0.5 % 30 ML VIAL ONE (15:16)
[2016-08-07] MEDS ORDERED: POVIDONE IODINE 10% 28.4 GM OINT ONE (15:16)
[2016-08-07] MEDS ORDERED: POLYMYXIN/BACITRACIN 1L IRRIG ONE (15:16)
[2016-08-07] MEDS ORDERED: MEPERIDINE 25 MG INJ IV PRN (16:30)
[2016-08-07] MEDS ORDERED: hydrALAzine 20 MG INJ IV PRN (16:30)
[2016-08-07] MEDS ORDERED: DIPHENHYDRAMINE 50 MG INJ IV PRN (16:30)
[2016-08-07] MEDS ORDERED: HYDROmorphONE (0.2 MG/ML) 10ML SYG IV PRN ×2 (16:30)
[2016-08-07] MEDS ORDERED: LABETALOL HCL 20MG INJ IV PRN (16:30)
[2016-08-07] MEDS ORDERED: ONDANSETRON 4 MG INJ IV PRN (16:30)
[2016-08-07] MEDS ORDERED: FENTAnyl 50 MCG/ML VIAL IV PRN ×3 (16:30)
[2016-08-07] MEDS ORDERED: EPHEDrine SULFATE 50 MG/5 ML SYG IV PRN (16:30)
[2016-08-07] MEDS ORDERED: TRIMETHOBENZAMIDE 100 MG/ML VIAL IM PRN (16:30)
[2016-08-07] MEDS ORDERED: MIDAZOLAM 1 MG/ML 2 ML INJ IV PRN (16:30)
--- NOTE | 2016-08-07 16:30 | PN ---
Date/Time of Note Date/Time of Note DATE: 08/07/16 TIME: 16:26 Assessment/Plan VTE Prophylaxis VTE Prophylaxis Intervention: ambulation, other (Xarelto held for surgery. ) Lines/Catheters [facility] Peripheral IV Central line still needed: Yes Urinary Cath still in place: No Assessment/Plan Chief Complaint/Hosp Course s/p ACL reconstruction with Achilles allograft on 07/12/16, and s/p I&D with cultures on 07/25/16 and again on 07/27/16, 07/31/16 with 2/4 most recent cultures growing scant MRSA. Retained Achilles Allograft. Problems: Assessment/Plan Indium WBC scan positive only in the knee. Spoke with Dr. Casper, Dr. Durant and Dr. Hammond (Infectious disease), all agree that the next course of action will be to remove the ACL graft and hardware, as well as a thorough debridement of the knee. Patient and her family agree and are on board with this. Will proceed with left knee hardware removal, graft removal, debridement and cultures, as well as manipulation under anesthesia. NPO Subjective 24 Hr Interval Summary Subjective hx not possible: other (Continued fevers overnight. Anemia, feeling tired. ) Exam/Review of Systems Vital Signs Vitals Vital Signs Date Time Temp Pulse Resp B/P Pulse Ox O2 Delivery O2 Flow Rate FiO2 08/07/16 07:59 99.4 78 18 134/82 99 08/03/16 17:05 Room Air Intake and Output 08/06/16 08/06/16 08/07/16 15:00 23:00 07:00 Intake Total 110 ml 1150 ml 1050 ml Balance 110 ml 1150 ml 1050 ml Exam Constitutional: alert, oriented Respiratory: normal air movement Cardiovascular: regular rate and rhythm Musculoskeletal: other (Mild swelling of knee. Mild scant drainage, improved. Knee flexion [id number] degrees. NVID. ) Results Result Diagram: 08/07/16 0425 08/07/16 0550 Results 24 hrs Laboratory Tests Test 08/07/16 04:25 08/07/16 05:50 08/07/16 09:05 White Blood Count 2.9 #L Red Blood Count 2.58 L Hemoglobin 7.2 L Hematocrit 22.1 L Mean Corpuscular Volume 85.7 Mean Corpuscular Hemoglobin 27.9 L Mean Corpuscular Hemoglobin Concent 32.6 Red Cell Distribution Width 12.6 Platelet Count 307 Mean Platelet Volume 9.5 Neutrophils % 35.1 L Lymphocytes % 39.5 Monocytes % 22.4 H Eosinophils % 2.4 Basophils % 0.3 Nucleated Red Blood Cells % 0.0 Neutrophils # 1.0 L Lymphocytes # 1.1 Monocytes # 0.6 Eosinophils # 0.1 Basophils # 0.0 Nucleated Red Blood Cells # 0.0 Erythrocyte Sedimentation Rate 79 H Sodium Level 138 Potassium Level 3.7 Chloride Level 105 Carbon Dioxide Level 22 Anion Gap 15 Blood Urea Nitrogen 2 L Creatinine 0.53 Glucose Level 491 #*H 88 # Calcium Level 8.4 C-Reactive Protein 6.3 H Prothrombin Time 14.2 Prothrombin Time Ratio 1.1 INR International Normalized Ratio 1.10 Activated Partial Thromboplast Time 48.1 H Medications Medications Current Medications Senna/Docusate Sodium (Senokot-S) 1 tab BID PO Last administered on 08/01/16 08:53; Admin Dose 1 TAB; Start 07/25/16 at 09:00 Magnesium Hydroxide (Milk Of Mag) 30 ml BID PRN PO CONSTIPATION Last administered on 07/27/16 20:02; Admin Dose 30 ML; Start 07/25/16 at 00:00 Magnesium Hydroxide (Milk Of Mag) 30 ml HS PO Last administered on 07/30/16 20 :24; Admin Dose 30 ML; Start 07/26/16 at 21:00 Bisacodyl (Dulcolax Supp) 10 mg DAILY PRN [place] CONSTIPATION; Start 07/25/16 at 00 :00 Sodium Biphosphate/ Sodium Phosphate (Fleet Enema) 133 ml DAILY PRN [place] CONSTIPATION; Start 07/25/16 at 00:00 Oxycodone/ Acetaminophen (Percocet (5/ 325)) 1 tab Q4H PRN PO PAIN; Start 07/25 at 00:00 Oxycodone/ Acetaminophen (Percocet (5/ 325)) 2 tab Q4H PRN PO PAIN Last administered on 07/26/16 21:11; Admin Dose 2 TAB; Start 07/25/16 at 00:00 Morphine Sulfate (morphine) 5 mg Q4H PRN IV PAIN LEVEL 7-10 Last administered on 07/29/16 14:54; Admin Dose 5 MG; Start 07/25/16 at 00:00 Ondansetron HCl (Zofran Inj) 4 mg Q4H PRN IV NAUSEA AND/OR VOMITING Last administered on 08/07/16 11:57; Admin Dose 4 MG; Start 07/25/16 at 00:00 Diphenhydramine HCl (Benadryl) 25 mg Q4H PRN PO ITCHING; Start 07/25/16 at 00: 00 Bisacodyl (Dulcolax) 10 mg DAILY PRN PO CONSTIPATION Last administered on 08:19; Admin Dose 10 MG; Start 07/26/16 at 09:30 Vancomycin HCl (Vanco Iv Per Pharmacy) PER PHARMACY DOSING NOTE XX ; Start 07/25 at 18:30 Mupirocin (Bactroban) 1 applic BID TOP Last administered on 08/07/16 09:03; Admin Dose 1 APPLIC; Start 07/27/16 at 21:00 Acetaminophen/ Hydrocodone Bitart ([place] (5/325)) 1 tab Q4H PRN GTB PAIN LEVEL 1-5 Last administered on 07/30/16 23:35; Admin Dose 1 TAB; Start 07/27/16 at 16 :30 Acetaminophen/ Hydrocodone Bitart ([place] (5/325)) 2 tab Q4H PRN PO PAIN LEVEL 6 -10 Last administered on 07/30/16 06:19; Admin Dose 2 TAB; Start 07/27/16 at 16 :30 IV Flush (NS 10 ml) 10 ml PRN PRN IV FLUSH LINE Last administered on 07/29/16 04:44; Admin Dose 10 ML; Start 07/27/16 at 20:00 Rifampin 600 mg 600 mg DAILY PO Last administered on 08/07/16 09:03; Admin Dose 600 MG; Start 07/29/16 at 18:00 Dextrose/Lactated Ringer's (D5-Lr) 1,000 ml @ 20 mls/hr Q24H IV Last administered on 08/06/16 14:39; Admin Dose 40 MLS/HR; Start 07/31/16 at 12:30 Loperamide HCl 2 mg 2 mg QID PRN PO DIARRHEA Last administered on 08/02/16 08: 01; Admin Dose 2 MG; Start 08/02/16 at 08:00 Ferric Sodium Gluconate Complex/ Sodium Chloride (Ferrlecit/NS) 110 ml @ 110 mls/hr Q24H IVPB Last administered on 08/07/16 10:59; Admin Dose 110 MLS/HR; Start 08/06/16 at 10:00; Stop 08/10/16 at 10:59 Tramadol HCl (Ultram) 50 mg Q6H PRN GTB pain; Start 08/06/16 at 19:00 Acetaminophen 1000 mg 1,000 mg Q4H PRN PO PAIN AND OR ELEVATED TEMP>100; Start 08/06/16 at 23:30 Vancomycin HCl 250 ml @ 125 mls/hr Q8H IVPB Last administered on 08/07/16 14: 53; Admin Dose 125 MLS/HR; Start 08/07/16 at 15:00 Acetaminophen (Ofirmev 1000mg/ 100ml Iv) 100 ml @ 400 mls/hr Q6H PRN IVPB FEVER Last administered on 08/07/16 14:23; Admin Dose 400 MLS/HR; Start 08/07/16 at 14:15 MERLYN TAFOYA MD August 07, 2016 16:29
[2016-08-07] MEDS ORDERED: ROCURONIUM 50 MG INJ ONE (16:35)
[2016-08-07] MEDS ORDERED: GLYCOPYRROLATE 0.4 MG INJ ONE (16:35)
[2016-08-07] MEDS ORDERED: DEXAMETHASONE 4 MG/ML 1 ML INJ ONE (16:35)
[2016-08-07] MEDS ORDERED: CEFAZOLIN 1 GM INJ ONE (16:35)
[2016-08-07] MEDS ORDERED: FENTAnyl 50 MCG/ML VIAL ONE (16:35)
[2016-08-07] MEDS ORDERED: NEOSTIGMINE 3 MG/3 ML SYRINGE ONE (16:35)
[2016-08-07] MEDS ORDERED: ONDANSETRON 4 MG INJ ONE (16:35)
[2016-08-07] MEDS ORDERED: PROPOFOL 20 ML ONE (16:35)
[2016-08-07] MEDS ORDERED: MIDAZOLAM 1 MG/ML 2 ML INJ ONE (16:35)
[2016-08-07] MEDS ORDERED: POLYMYXIN/BACITRACIN 1L IRRIG IRR ONE (18:19)
[2016-08-07] MEDS ORDERED: BACITRACIN 50000 UNITS INJ IRR ONE (18:19)
[2016-08-07] MEDS ORDERED: POLYMYXIN B 500000 UNIT INJ IRR ONE (18:21)
--- NOTE | 2016-08-07 20:07 | PN ---
Date/Time of Note Date/Time of Note DATE: 08/07/16 TIME: 20:04 Assessment/Plan VTE Prophylaxis VTE Prophylaxis Intervention: ambulation, other (xarelto) Lines/Catheters [facility] Per[facility] IV Urinary Cath still in place: No Assessment/Plan Chief Complaint/Hosp Course s/p ACL reconstruction with Achilles allograft on 07/12/16, and s/p I&D with cultures on 07/25/16 and again on 07/27/16, 07/31/16 with 2/4 most recent cultures growing scant MRSA. Retained Achilles Allograft. Problems: Assessment/Plan Post-op Note-- Patient transferred to PACU in stable condition now s/p left knee extensive debridement, ACL allograft removal, hardware removal, manipulation under anesthesia and incisional wound vac placement. PLAN: - Pain control - PT/OT - WBAT LLE, ok for ROM of left knee AFTER hemovac drain has been removed - Hemovac x 1 to LLE, monitor output q8 hours - Incisional vac over tibial wound, continue x2-3 days - Vanc/Rifampin per ID - Consider nutrition consult - Resume Xarelto on 08/08/16 - Regular diet, advance as tolerated Exam/Review of Systems Vital Signs Vitals Vital Signs Date Time Temp Pulse Resp B/P Pulse Ox O2 Delivery O2 Flow Rate FiO2 08/07/16 07:59 99.4 78 18 134/82 99 08/03/16 17:05 Room Air Intake and Output 08/06/16 08/06/16 08/07/16 15:00 23:00 07:00 Intake Total 110 ml 1150 ml 1050 ml Balance 110 ml 1150 ml 1050 ml Results Result Diagram: 08/07/16 0425 08/07/16 0550 Results 24 hrs Laboratory Tests Test 08/07/16 04:25 08/07/16 05:50 08/07/16 09:05 White Blood Count 2.9 #L Red Blood Count 2.58 L Hemoglobin 7.2 L Hematocrit 22.1 L Mean Corpuscular Volume 85.7 Mean Corpuscular Hemoglobin 27.9 L Mean Corpuscular Hemoglobin Concent 32.6 Red Cell Distribution Width 12.6 Platelet Count 307 Mean Platelet Volume 9.5 Neutrophils % 35.1 L Lymphocytes % 39.5 Monocytes % 22.4 H Eosinophils % 2.4 Basophils % 0.3 Nucleated Red Blood Cells % 0.0 Neutrophils # 1.0 L Lymphocytes # 1.1 Monocytes # 0.6 Eosinophils # 0.1 Basophils # 0.0 Nucleated Red Blood Cells # 0.0 Erythrocyte Sedimentation Rate 79 H Sodium Level 138 Potassium Level 3.7 Chloride Level 105 Carbon Dioxide Level 22 Anion Gap 15 Blood Urea Nitrogen 2 L Creatinine 0.53 Glucose Level 491 #*H 88 # Calcium Level 8.4 C-Reactive Protein 6.3 H Prothrombin Time 14.2 Prothrombin Time Ratio 1.1 INR International Normalized Ratio 1.10 Activated Partial Thromboplast Time 48.1 H Medications Medications Current Medications Senna/Docusate Sodium (Senokot-S) 1 tab BID PO Last administered on 08/01/16 08:53; Admin Dose 1 TAB; Start 07/25/16 at 09:00 Magnesium Hydroxide (Milk Of Mag) 30 ml BID PRN PO CONSTIPATION Last administered on 07/27/16 20:02; Admin Dose 30 ML; Start 07/25/16 at 00:00 Magnesium Hydroxide (Milk Of Mag) 30 ml HS PO Last administered on 07/30/16 20 :24; Admin Dose 30 ML; Start 07/26/16 at 21:00 Bisacodyl (Dulcolax Supp) 10 mg DAILY PRN [place] CONSTIPATION; Start 07/25/16 at 00 :00 Sodium Biphosphate/ Sodium Phosphate (Fleet Enema) 133 ml DAILY PRN [place] CONSTIPATION; Start 07/25/16 at 00:00 Oxycodone/ Acetaminophen (Percocet (5/ 325)) 1 tab Q4H PRN PO PAIN; Start 07/25 at 00:00 Oxycodone/ Acetaminophen (Percocet (5/ 325)) 2 tab Q4H PRN PO PAIN Last administered on 07/26/16 21:11; Admin Dose 2 TAB; Start 07/25/16 at 00:00 Morphine Sulfate (morphine) 5 mg Q4H PRN IV PAIN LEVEL 7-10 Last administered on 07/29/16 14:54; Admin Dose 5 MG; Start 07/25/16 at 00:00 Ondansetron HCl (Zofran Inj) 4 mg Q4H PRN IV NAUSEA AND/OR VOMITING Last administered on 08/07/16 11:57; Admin Dose 4 MG; Start 07/25/16 at 00:00 Diphenhydramine HCl (Benadryl) 25 mg Q4H PRN PO ITCHING; Start 07/25/16 at 00: 00 Bisacodyl (Dulcolax) 10 mg DAILY PRN PO CONSTIPATION Last administered on 08:19; Admin Dose 10 MG; Start 07/26/16 at 09:30 Vancomycin HCl (Vanco Iv Per Pharmacy) PER PHARMACY DOSING NOTE XX ; Start 07/25 at 18:30 Mupirocin (Bactroban) 1 applic BID TOP Last administered on 08/07/16 09:03; Admin Dose 1 APPLIC; Start 07/27/16 at 21:00 Acetaminophen/ Hydrocodone Bitart ([place] (5/325)) 1 tab Q4H PRN GTB PAIN LEVEL 1-5 Last administered on 07/30/16 23:35; Admin Dose 1 TAB; Start 07/27/16 at 16 :30 Acetaminophen/ Hydrocodone Bitart ([place] (5/325)) 2 tab Q4H PRN PO PAIN LEVEL 6 -10 Last administered on 07/30/16 06:19; Admin Dose 2 TAB; Start 07/27/16 at 16 :30 IV Flush (NS 10 ml) 10 ml PRN PRN IV FLUSH LINE Last administered on 07/29/16 04:44; Admin Dose 10 ML; Start 07/27/16 at 20:00 Rifampin 600 mg 600 mg DAILY PO Last administered on 08/07/16 09:03; Admin Dose 600 MG; Start 07/29/16 at 18:00 Dextrose/Lactated Ringer's (D5-Lr) 1,000 ml @ 20 mls/hr Q24H IV Last administered on 08/06/16 14:39; Admin Dose 40 MLS/HR; Start 07/31/16 at 12:30 Loperamide HCl 2 mg 2 mg QID PRN PO DIARRHEA Last administered on 08/02/16 08: 01; Admin Dose 2 MG; Start 08/02/16 at 08:00 Ferric Sodium Gluconate Complex/ Sodium Chloride (Ferrlecit/NS) 110 ml @ 110 mls/hr Q24H IVPB Last administered on 08/07/16 10:59; Admin Dose 110 MLS/HR; Start 5/2/17 at 10:00; Stop 08/10/16 at 10:59 Tramadol HCl (Ultram) 50 mg Q6H PRN GTB pain; Start 08/06/16 at 19:00 Acetaminophen 1000 mg 1,000 mg Q4H PRN PO PAIN AND OR ELEVATED TEMP>100; Start 08/06/16 at 23:30 Vancomycin HCl 250 ml @ 125 mls/hr Q8H IVPB Last administered on 08/07/16 14: 53; Admin Dose 125 MLS/HR; Start 08/07/16 at 15:00 Acetaminophen (Ofirmev 1000mg/ 100ml Iv) 100 ml @ 400 mls/hr Q6H PRN IVPB FEVER Last administered on 08/07/16 14:23; Admin Dose 400 MLS/HR; Start 08/07/16 at 14:15 MERLYN TAFOYA MD August 07, 2016 20:07
[2016-08-07] MEDS: HYDROmorphONE (0.2 MG/ML) 10ML SYG IV PRN ×2 (20:31→20:52)
[2016-08-07] MEDS: MAGNESIUM HYDROXIDE 30ML CUP PO SCH (21:00)
[2016-08-07] MEDS: HYDROCODONE/APAP (5/325) TAB GTB PRN (21:03)
[2016-08-08] MEDS: DEXTROSE 5%-LR 1,000 ML IV SCH ×2 (00:30→08:54)
--- NOTE | 2016-08-08 03:45 | OPR ---
DATE OF OPERATION: 08/07/2016 PREOPERATIVE DIAGNOSES: 1. Status post anterior cruciate ligament reconstruction with Achilles allograft, left knee. 2. 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 POSTOPERATIVE DIAGNOSES: 1. Status post anterior cruciate ligament reconstruction with Achilles allograft, left knee. 2. 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 OPERATION PERFORMED: 1. Arthroscopy, left knee. 2. Irrigation and debridement of the knee and proximal tibial wound. 3. Removal ACL graft, the screw in the tibia, and a portion of the RigidFix pins in the femur. 4. Application of a wound VAC by Prevena. Extremely complex difficult procedure because the patient has already had 4 operations for her knee and continues to have fevers. Additional surgery was done to remove the graft. This was difficult because of the previous surgeries , difficulty in getting the screw out of the tibia and the Rigidfix pins out of the femur. Because of this, this added an additional 45 minutes of operative time (22). SURGEON: Merlyn Valle MD CONSUMER MARKETING MANAGER: Liz Álvarez MD ANESTHESIA: General. TOURNIQUET TIME: 100 minutes. DESCRIPTION OF PROCEDURE: The patient taken to the operating room and placed in supine position. Satisfactory general anesthesia was administered. She got vancomycin 1 gram 2 hours previously. The sutures were removed from the knee. The left knee was then prepped and draped in the usual manner. We could fully get the knee straight by manipulation, and we could manipulate the knee flexed 134 degrees with some audible and palpable popping. Standard arthroscopic portals were used. Undersurface of the patella had debris and scarring. There was a lot of debris and scarring throughout the knee including the suprapatellar pouch and the medial and lateral gutters. Sequentially, the superior wounds were debrided. All scar tissue was removed from the knee. There were no obvious signs of infection. The ACL graft was in place. The graft was felt to be part of the chronic infection, and because of 3 failed previous surgeries with recurrent fevers, we felt it was necessary to remove the ACL graft. This was done with great consideration and discussed with the patient and her family. The graft was cut at its femoral attachment. Incision was made through the previous incision in the proximal tibia, dissection carried down to subcutaneous tissue. With difficulty we were able to identify the interference screw that the graft was attached on the tibia. This was removed with a special screwdriver with some difficulty. The graft was then pulled out the tibial wound and sent for culture in toto. The tibial hole was curetted clear until there were was no fibrous tissue or debris. Shaver was used to further debride the areas. The medial and lateral joint lines were debrided. There was some softening chondromalacia of the medial femoral condyle as previously noted. The menisci looked intact. PCL was intact. The area of the previous ACL was debrided further. We then put a guide pin up a cannulated reamer, and sequentially we were able to drill out the bone plug on the femur. We were then able to remove some of the RigidFix pins. Some were still present. We were able to tease the pins out completely along the lateral femur. We debrided the wounds and talked to the family about the entire situation. Once the graft had been removed and everything was curetted in both tunnels, all debris was removed. The wounds was irrigated again with antibiotic solution. In total, over 20 liters of fluid with antibiotic was run through the knee. After complete debridement of the knee, the knee was irrigated clear. The proximal tibial wound was closed with 0 PDS and then with #1 and 3- 0 black nylon. The portals were closed with 3-0 black nylon. A drain, Johan- Marrero type, was placed in the arthroscopically and brought out laterally. A Prevena wound VAC was applied along the proximal tibia as well as compression stocking, and the patient was brought to recovery room in stable condition. Interprocedure sponge and needle count was correct. The patient tolerated the procedure well. Dictated By: MERLYN MULTANI/JUAN Conf#: [id number] DID#: [id number] MTDJuan Antonio
[2016-08-08] MEDS: HYDROCODONE/APAP (5/325) TAB GTB PRN (04:07)
[2016-08-08 04:53] LABS: ADD SCAN DIFF NO
[2016-08-08 05:01] LABS: BASOPHILS % 0.2 % (0.0-2.0); EOSINOPHILS % 0.2 % (0.0-7.0); HEMATOCRIT 30.5 % (37.0-47.0); HEMOGLOBIN 10.3 g/dl (12.0-16.0); LYMPHOCYTES # 1.3 10^3/ul (0.8-2.9); LYMPHOCYTES % 27.2 % (15.0-51.0); MEAN CORPUSCULAR HGB CONC 33.8 g/dl (32.0-37.0); MEAN CORPUSCULAR VOLUME 85.9 fl (82.0-101.0); MEAN PLATELET VOLUME 8.6 fl (7.4-10.4); MONOCYTE # 0.6 10^3/ul (0.3-0.9); MONOCYTES % 13.3 % (0.0-11.0); NEUTROPHIL # 2.8 10^3/ul (1.6-7.5); NEUTROPHILS % 58.9 % (39.0-77.0); PLATELET COUNT 393 10^3/UL (140-415); RED BLOOD COUNT 3.55 10^6/ul (4.20-5.40); RED CELL DISTRIBUTION WIDTH 12.7 % (11.5-14.5); WHITE BLOOD COUNT 4.8 10^3/ul (4.8-10.8)
[2016-08-08 05:18] VITALS: BP 130/76; PULSE 75; RESP 18
[2016-08-08 05:31] LABS: CALCIUM 8.6 mg/dl (8.4-10.2); CREATININE 0.55 mg/dl (0.44-1.00); MAGNESIUM 1.7 mg/dl (1.7-2.5); PHOSPHORUS 3.9 mg/dl (2.5-4.9); POTASSIUM 4.1 mmol/L (3.5-5.1)
[2016-08-08 05:40] LABS: INR 1.08; PT RATIO 1.1
[2016-08-08 05:41] LABS: PARTIAL THROMBOPLASTIN TIME 44.5 Sec (25.0-35.0)
[2016-08-08] MEDS: VANCOMYCIN 1 GM in NS 250 ML IVPB SCH (06:17)
--- NOTE | 2016-08-08 06:50 | PN ---
Date/Time of Note Date/Time of Note DATE: 08/08/16 TIME: 06:44 Assessment/Plan VTE Prophylaxis VTE Prophylaxis Intervention: ambulation, other (Xarelto) Lines/Catheters IV Catheter Type (from Nrsg): PICC Line Central line still needed: Yes Urinary Cath still in place: No Assessment/Plan Chief Complaint/Hosp Course s/p ACL reconstruction with Achilles allograft on 07/12/16, and s/p I&D with cultures on 07/25/16 and again on 07/27/16, 07/31/16 and removal of graft, hardware and AFSHAN on 08/07/16. Problems: Assessment/Plan - Pain control: [place], Tramadol PRN - PT/OT, ok for WBAT, needs aggressive ROM as soon as hemovac drain is removed - SCD's, Xarelto for DVT PPX - ID: MRSA, now s/p hardware and graft removal. Continue Vanc/Rifampin. Monitor kidney function. Will need 6 weeks of Abx. PICC in place - Nutrition consult - Anemia: now s/p 2 units PRBC's on 08/07 with appropriate response. Anemia likely due to infection. - Discharge, pending improvement, possibly tomorrow vs. Friday. Subjective 24 Hr Interval Summary Subjective hx not possible: other (No acute overnight events. No fevers. Patient endorses fatigue. ) Exam/Review of Systems Vital Signs Vitals Vital Signs Date Time Temp Pulse Resp B/P Pulse Ox O2 Delivery O2 Flow Rate FiO2 08/08/16 05:18 98.8 75 18 130/76 98 Nasal Cannula 08/07/16 22:15 2.0 Intake and Output 08/07/16 08/07/16 08/08/16 14:59 22:59 06:59 Intake Total 460 ml 2900 ml 1150 ml Output Total 20 ml 1183 ml Balance 460 ml 2880 ml -33 ml Exam Constitutional: alert, oriented, other Respiratory: normal air movement Cardiovascular: regular rate and rhythm Musculoskeletal: other (LLE with wound vac intact. HV in place with mild SS drainage. Dressing CDI. NVID. ) Results Result Diagram: 08/08/16 0430 08/08/16 0430 Results 24 hrs Laboratory Tests Test 08/07/16 09:05 08/08/16 04:30 Prothrombin Time 14.2 14.0 Prothrombin Time Ratio 1.1 1.1 INR International Normalized Ratio 1.10 1.08 Activated Partial Thromboplast Time 48.1 H 44.5 H White Blood Count 4.8 # Red Blood Count 3.55 #L Hemoglobin 10.3 #L Hematocrit 30.5 #L Mean Corpuscular Volume 85.9 Mean Corpuscular Hemoglobin 29.0 Mean Corpuscular Hemoglobin Concent 33.8 Red Cell Distribution Width 12.7 Platelet Count 393 # Mean Platelet Volume 8.6 Neutrophils % 58.9 Lymphocytes % 27.2 Monocytes % 13.3 H Eosinophils % 0.2 Basophils % 0.2 Nucleated Red Blood Cells % 0.0 Neutrophils # 2.8 Lymphocytes # 1.3 Monocytes # 0.6 Eosinophils # 0.0 Basophils # 0.0 Nucleated Red Blood Cells # 0.0 Sodium Level 135 Potassium Level 4.1 Chloride Level 105 Carbon Dioxide Level 24 Anion Gap 10 # Blood Urea Nitrogen 2 L Creatinine 0.55 Glucose Level 96 Calcium Level 8.6 Phosphorus Level 3.9 Magnesium Level 1.7 Medications Medications Current Medications Senna/Docusate Sodium (Senokot-S) 1 tab BID PO Last administered on 08/01/16 08:53; Admin Dose 1 TAB; Start 07/25/16 at 09:00 Magnesium Hydroxide (Milk Of Mag) 30 ml BID PRN PO CONSTIPATION Last administered on 07/27/16 20:02; Admin Dose 30 ML; Start 07/25/16 at 00:00 Magnesium Hydroxide (Milk Of Mag) 30 ml HS PO Last administered on 07/30/16 20 :24; Admin Dose 30 ML; Start 07/26/16 at 21:00 Bisacodyl (Dulcolax Supp) 10 mg DAILY PRN [place] CONSTIPATION; Start 07/25/16 at 00 :00 Sodium Biphosphate/ Sodium Phosphate (Fleet Enema) 133 ml DAILY PRN [place] CONSTIPATION; Start 07/25/16 at 00:00 Oxycodone/ Acetaminophen (Percocet (5/ 325)) 1 tab Q4H PRN PO PAIN; Start 07/25 at 00:00 Oxycodone/ Acetaminophen (Percocet (5/ 325)) 2 tab Q4H PRN PO PAIN Last administered on 07/26/16 21:11; Admin Dose 2 TAB; Start 07/25/16 at 00:00 Morphine Sulfate (morphine) 5 mg Q4H PRN IV PAIN LEVEL 7-10 Last administered on 07/29/16 14:54; Admin Dose 5 MG; Start 07/25/16 at 00:00 Ondansetron HCl (Zofran Inj) 4 mg Q4H PRN IV NAUSEA AND/OR VOMITING Last administered on 08/07/16 11:57; Admin Dose 4 MG; Start 07/25/16 at 00:00 Diphenhydramine HCl (Benadryl) 25 mg Q4H PRN PO ITCHING; Start 07/25/16 at 00: 00 Bisacodyl (Dulcolax) 10 mg DAILY PRN PO CONSTIPATION Last administered on 08:19; Admin Dose 10 MG; Start 07/26/16 at 09:30 Vancomycin HCl (Vanco Iv Per Pharmacy) PER PHARMACY DOSING NOTE XX ; Start 07/25 at 18:30 Mupirocin (Bactroban) 1 applic BID TOP Last administered on 08/07/16 21:47; Admin Dose 1 APPLIC; Start 07/27/16 at 21:00 Acetaminophen/ Hydrocodone Bitart ([place] (5/325)) 1 tab Q4H PRN GTB PAIN LEVEL 1-5 Last administered on 08/08/16 04:07; Admin Dose 1 TAB; Start 07/27/16 at 16: 30 Acetaminophen/ Hydrocodone Bitart ([place] (5/325)) 2 tab Q4H PRN PO PAIN LEVEL 6 -10 Last administered on 07/30/16 06:19; Admin Dose 2 TAB; Start 07/27/16 at 16 :30 IV Flush (NS 10 ml) 10 ml PRN PRN IV FLUSH LINE Last administered on 07/29/16 04:44; Admin Dose 10 ML; Start 07/27/16 at 20:00 Rifampin 600 mg 600 mg DAILY PO Last administered on 08/07/16 09:03; Admin Dose 600 MG; Start 07/29/16 at 18:00 Dextrose/Lactated Ringer's (D5-Lr) 1,000 ml @ 20 mls/hr Q24H IV Last administered on 08/06/16 14:39; Admin Dose 40 MLS/HR; Start 07/31/16 at 12:30 Loperamide HCl 2 mg 2 mg QID PRN PO DIARRHEA Last administered on 08/02/16 08: 01; Admin Dose 2 MG; Start 08/02/16 at 08:00 Ferric Sodium Gluconate Complex/ Sodium Chloride (Ferrlecit/NS) 110 ml @ 110 mls/hr Q24H IVPB Last administered on 08/07/16 10:59; Admin Dose 110 MLS/HR; Start 08/06/16 at 10:00; Stop 08/10/16 at 10:59 Tramadol HCl (Ultram) 50 mg Q6H PRN GTB pain; Start 08/06/16 at 19:00 Acetaminophen 1000 mg 1,000 mg Q4H PRN PO PAIN AND OR ELEVATED TEMP>100; Start 08/06/16 at 23:30 Vancomycin HCl 250 ml @ 125 mls/hr Q8H IVPB Last administered on 08/08/16 06: 17; Admin Dose 125 MLS/HR; Start 08/07/16 at 15:00 Acetaminophen (Ofirmev 1000mg/ 100ml Iv) 100 ml @ 400 mls/hr Q6H PRN IVPB FEVER Last administered on 08/07/16 14:23; Admin Dose 400 MLS/HR; Start 08/07/16 at 14:15 MERLYN TAFOYA MD August 08, 2016 06:49
[2016-08-08 07:48] VITALS: BP 126/75; RESP 19
[2016-08-08] MEDS: HYDROCODONE/APAP (5/325) TAB PO PRN ×3 (08:53→22:07)
[2016-08-08] MEDS: RIFAMPIN 300 MG CAP PO SCH (08:53)
[2016-08-08] MEDS: SENNA/DOCUSATE NA (8.6MG/50MG) TAB PO SCH ×2 (08:53→20:04)
[2016-08-08] MEDS: MUPIROCIN 2% 22 GM OINT TOP SCH ×2 (08:54→20:05)
[2016-08-08] MEDS: ONDANSETRON 4 MG INJ IV PRN ×2 (08:58→18:13)
[2016-08-08] MEDS: SOD FERRIC GLUC COMPLX 125 MG in SOD CHLORIDE 0.9% 100 ML IVPB SCH (11:06)
--- NOTE | 2016-08-08 11:53 | CONS ---
Date/Time of Note Date/Time of Note DATE: 08/08/16 TIME: 11:52 Assessment/Plan Assessment/Plan Additional Assessment/Plan 1. S/P left knee surgery, overall feeling better. 2. Hct noted after 2 units cells. 3. Abx per ID Consultation Date/Type/Reason Admit Date/Time Jul 24, 2016 at 17:51 Type of Consultation: ID Detailed Summary Respiratory: No cough, No shortness of breath Cardiovascular: No chest pain, No orthopenea Gastrointestinal: no complaints Genitourinary: no complaints Musculoskeletal: bone/joint pain (mild left knee pain) Exam/Review of Systems Vital Signs Vitals Vital Signs Date Time Temp Pulse Resp B/P Pulse Ox O2 Delivery O2 Flow Rate FiO2 08/08/16 07:48 98.0 76 19 126/75 98 08/08/16 05:18 Nasal Cannula 08/07/16 22:15 2.0 Intake and Output 08/07/16 08/07/16 08/08/16 15:00 23:00 07:00 Intake Total 460 ml 2900 ml 1150 ml Output Total 20 ml 1183 ml Balance 460 ml 2880 ml -33 ml Exam Neck: No jvd Respiratory: clear to auscultation Cardiovascular: regular rate and rhythm Gastrointestinal: soft Extremities: No edema (and no calf tend) Results Result Diagram: 08/08/16 0430 08/08/16 0430 Results 24 hrs Laboratory Tests Test 08/08/16 04:30 White Blood Count 4.8 # Red Blood Count 3.55 #L Hemoglobin 10.3 #L Hematocrit 30.5 #L Mean Corpuscular Volume 85.9 Mean Corpuscular Hemoglobin 29.0 Mean Corpuscular Hemoglobin Concent 33.8 Red Cell Distribution Width 12.7 Platelet Count 393 # Mean Platelet Volume 8.6 Neutrophils % 58.9 Lymphocytes % 27.2 Monocytes % 13.3 H Eosinophils % 0.2 Basophils % 0.2 Nucleated Red Blood Cells % 0.0 Neutrophils # 2.8 Lymphocytes # 1.3 Monocytes # 0.6 Eosinophils # 0.0 Basophils # 0.0 Nucleated Red Blood Cells # 0.0 Prothrombin Time 14.0 Prothrombin Time Ratio 1.1 INR International Normalized Ratio 1.08 Activated Partial Thromboplast Time 44.5 H Sodium Level 135 Potassium Level 4.1 Chloride Level 105 Carbon Dioxide Level 24 Anion Gap 10 # Blood Urea Nitrogen 2 L Creatinine 0.55 Glucose Level 96 Calcium Level 8.6 Phosphorus Level 3.9 Magnesium Level 1.7 Medications Medications Current Medications Senna/Docusate Sodium (Senokot-S) 1 tab BID PO Last administered on 08/08/16 08 :53; Admin Dose 1 TAB; Start 07/25/16 at 09:00 Magnesium Hydroxide (Milk Of Mag) 30 ml BID PRN PO CONSTIPATION Last administered on 07/27/16 20:02; Admin Dose 30 ML; Start 07/25/16 at 00:00 Magnesium Hydroxide (Milk Of Mag) 30 ml HS PO Last administered on 07/30/16 20 :24; Admin Dose 30 ML; Start 07/26/16 at 21:00 Bisacodyl (Dulcolax Supp) 10 mg DAILY PRN [place] CONSTIPATION; Start 07/25/16 at 00 :00 Sodium Biphosphate/ Sodium Phosphate (Fleet Enema) 133 ml DAILY PRN [place] CONSTIPATION; Start 07/25/16 at 00:00 Oxycodone/ Acetaminophen (Percocet (5/ 325)) 1 tab Q4H PRN PO PAIN; Start 07/25 at 00:00 Oxycodone/ Acetaminophen (Percocet (5/ 325)) 2 tab Q4H PRN PO PAIN Last administered on 07/26/16 21:11; Admin Dose 2 TAB; Start 07/25/16 at 00:00 Morphine Sulfate (morphine) 5 mg Q4H PRN IV PAIN LEVEL 7-10 Last administered on 07/29/16 14:54; Admin Dose 5 MG; Start 07/25/16 at 00:00 Ondansetron HCl (Zofran Inj) 4 mg Q4H PRN IV NAUSEA AND/OR VOMITING Last administered on 08/08/16 08:58; Admin Dose 4 MG; Start 07/25/16 at 00:00 Diphenhydramine HCl (Benadryl) 25 mg Q4H PRN PO ITCHING; Start 07/25/16 at 00: 00 Bisacodyl (Dulcolax) 10 mg DAILY PRN PO CONSTIPATION Last administered on 08:19; Admin Dose 10 MG; Start 07/26/16 at 09:30 Vancomycin HCl (Vanco Iv Per Pharmacy) PER PHARMACY DOSING NOTE XX ; Start 07/25 at 18:30 Mupirocin (Bactroban) 1 applic BID TOP Last administered on 08/08/16 08:54; Admin Dose 1 APPLIC; Start 07/27/16 at 21:00 Acetaminophen/ Hydrocodone Bitart ([place] (5/325)) 1 tab Q4H PRN GTB PAIN LEVEL 1-5 Last administered on 08/08/16 04:07; Admin Dose 1 TAB; Start 07/27/16 at 16: 30 Acetaminophen/ Hydrocodone Bitart ([place] (5/325)) 2 tab Q4H PRN PO PAIN LEVEL 6 -10 Last administered on 08/08/16 08:53; Admin Dose 2 TAB; Start 07/27/16 at 16: 30 IV Flush (NS 10 ml) 10 ml PRN PRN IV FLUSH LINE Last administered on 07/29/16 04:44; Admin Dose 10 ML; Start 07/27/16 at 20:00 Rifampin 600 mg 600 mg DAILY PO Last administered on 08/08/16 08:53; Admin Dose 600 MG; Start 07/29/16 at 18:00 Dextrose/Lactated Ringer's (D5-Lr) 1,000 ml @ 20 mls/hr Q24H IV Last administered on 08/08/16 08:54; Admin Dose 20 MLS/HR; Start 07/31/16 at 12:30 Loperamide HCl 2 mg 2 mg QID PRN PO DIARRHEA Last administered on 08/02/16 08: 01; Admin Dose 2 MG; Start 08/02/16 at 08:00 Ferric Sodium Gluconate Complex/ Sodium Chloride (Ferrlecit/NS) 110 ml @ 110 mls/hr Q24H IVPB Last administered on 08/08/16 11:06; Admin Dose 110 MLS/HR; Start 08/06/16 at 10:00; Stop 08/10/16 at 10:59 Tramadol HCl (Ultram) 50 mg Q6H PRN GTB pain; Start 08/06/16 at 19:00 Acetaminophen 1000 mg 1,000 mg Q4H PRN PO PAIN AND OR ELEVATED TEMP>100; Start 08/06/16 at 23:30 Acetaminophen 100 ml @ 400 mls/hr Q6H PRN IVPB FEVER Last administered on 14:23; Admin Dose 400 MLS/HR; Start 08/07/16 at 14:15 Vancomycin HCl/ Sodium Chloride (Vancocin/NS) 250 ml @ 83.333 mls/ hr Q12H IVPB ; Start 08/08/16 at 18:00 MARCUS SCHILLING MD August 08, 2016 11:53
--- NOTE | 2016-08-08 12:05 | CONS ---
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 continue to follow ESR and CRP for reponse to therapy on a weekly basis anticipate at least a 6 week course of treatment. will follow with you 08/08 - spoke to pharmacy she will be changed to [id number] dosing of vanco edited case management consult to continue IV vanco thru 08/17/16 pt to get weekly cbc, bmp, esr, crp and vanco trough knee cx are pending pt had hardware and graft removed yesterday Problems: Consultation Date/Type/Reason Admit Date/Time Jul 24, 2016 at 17:51 Initial Consult Date 08/07/16 Type of Consultation: ID [id number] HR Interval Summary Free Text/Dictation pt had more pain to L knee when she tried to stand Fever is better had some nausea this a.m. Exam/Review of Systems Vital Signs Vitals Vital Signs Date Time Temp Pulse Resp B/P Pulse Ox O2 Delivery O2 Flow Rate FiO2 08/08/16 07:48 98.0 76 19 126/75 98 08/08/16 05:18 Nasal Cannula 08/07/16 22:15 2.0 Intake and Output 08/07/16 08/07/16 08/08/16 15:00 23:00 07:00 Intake Total 460 ml 2900 ml 1150 ml Output Total 20 ml 1183 ml Balance 460 ml 2880 ml -33 ml Exam Constitutional: alert, oriented Head: normocephalic Eyes: nl sclera ENMT: mucosa pink and moist Respiratory: clear to auscultation Cardiovascular: regular rate and rhythm Gastrointestinal: non-tender, soft Extremities: other (L knee is bandaged) Results Result Diagram: 08/08/16 0430 08/08/16 0430 Results 24 hrs Laboratory Tests Test 08/08/16 04:30 White Blood Count 4.8 # Red Blood Count 3.55 #L Hemoglobin 10.3 #L Hematocrit 30.5 #L Mean Corpuscular Volume 85.9 Mean Corpuscular Hemoglobin 29.0 Mean Corpuscular Hemoglobin Concent 33.8 Red Cell Distribution Width 12.7 Platelet Count 393 # Mean Platelet Volume 8.6 Neutrophils % 58.9 Lymphocytes % 27.2 Monocytes % 13.3 H Eosinophils % 0.2 Basophils % 0.2 Nucleated Red Blood Cells % 0.0 Neutrophils # 2.8 Lymphocytes # 1.3 Monocytes # 0.6 Eosinophils # 0.0 Basophils # 0.0 Nucleated Red Blood Cells # 0.0 Prothrombin Time 14.0 Prothrombin Time Ratio 1.1 INR International Normalized Ratio 1.08 Activated Partial Thromboplast Time 44.5 H Sodium Level 135 Potassium Level 4.1 Chloride Level 105 Carbon Dioxide Level 24 Anion Gap 10 # Blood Urea Nitrogen 2 L Creatinine 0.55 Glucose Level 96 Calcium Level 8.6 Phosphorus Level 3.9 Magnesium Level 1.7 Medications Medications Current Medications Senna/Docusate Sodium (Senokot-S) 1 tab BID PO Last administered on 08/08/16 08 :53; Admin Dose 1 TAB; Start 07/25/16 at 09:00 Magnesium Hydroxide (Milk Of Mag) 30 ml BID PRN PO CONSTIPATION Last administered on 07/27/16 20:02; Admin Dose 30 ML; Start 07/25/16 at 00:00 Magnesium Hydroxide (Milk Of Mag) 30 ml HS PO Last administered on 07/30/16 20 :24; Admin Dose 30 ML; Start 07/26/16 at 21:00 Bisacodyl (Dulcolax Supp) 10 mg DAILY PRN [place] CONSTIPATION; Start 07/25/16 at 00 :00 Sodium Biphosphate/ Sodium Phosphate (Fleet Enema) 133 ml DAILY PRN [place] CONSTIPATION; Start 07/25/16 at 00:00 Oxycodone/ Acetaminophen (Percocet (5/ 325)) 1 tab Q4H PRN PO PAIN; Start 07/25 at 00:00 Oxycodone/ Acetaminophen (Percocet (5/ 325)) 2 tab Q4H PRN PO PAIN Last administered on 07/26/16 21:11; Admin Dose 2 TAB; Start 07/25/16 at 00:00 Morphine Sulfate (morphine) 5 mg Q4H PRN IV PAIN LEVEL 7-10 Last administered on 07/29/16 14:54; Admin Dose 5 MG; Start 07/25/16 at 00:00 Ondansetron HCl (Zofran Inj) 4 mg Q4H PRN IV NAUSEA AND/OR VOMITING Last administered on 08/08/16 08:58; Admin Dose 4 MG; Start 07/25/16 at 00:00 Diphenhydramine HCl (Benadryl) 25 mg Q4H PRN PO ITCHING; Start 07/25/16 at 00: 00 Bisacodyl (Dulcolax) 10 mg DAILY PRN PO CONSTIPATION Last administered on 08:19; Admin Dose 10 MG; Start 07/26/16 at 09:30 Vancomycin HCl (Vanco Iv Per Pharmacy) PER PHARMACY DOSING NOTE XX ; Start 07/25 at 18:30 Mupirocin (Bactroban) 1 applic BID TOP Last administered on 08/08/16 08:54; Admin Dose 1 APPLIC; Start 07/27/16 at 21:00 Acetaminophen/ Hydrocodone Bitart ([place] (5/325)) 1 tab Q4H PRN GTB PAIN LEVEL 1-5 Last administered on 08/08/16 04:07; Admin Dose 1 TAB; Start 07/27/16 at 16: 30 Acetaminophen/ Hydrocodone Bitart ([place] (5/325)) 2 tab Q4H PRN PO PAIN LEVEL 6 -10 Last administered on 08/08/16 08:53; Admin Dose 2 TAB; Start 07/27/16 at 16: 30 IV Flush (NS 10 ml) 10 ml PRN PRN IV FLUSH LINE Last administered on 07/29/16 04:44; Admin Dose 10 ML; Start 07/27/16 at 20:00 Rifampin 600 mg 600 mg DAILY PO Last administered on 08/08/16 08:53; Admin Dose 600 MG; Start 07/29/16 at 18:00 Dextrose/Lactated Ringer's (D5-Lr) 1,000 ml @ 20 mls/hr Q24H IV Last administered on 08/08/16 08:54; Admin Dose 20 MLS/HR; Start 07/31/16 at 12:30 Loperamide HCl 2 mg 2 mg QID PRN PO DIARRHEA Last administered on 08/02/16 08: 01; Admin Dose 2 MG; Start 08/02/16 at 08:00 Ferric Sodium Gluconate Complex/ Sodium Chloride (Ferrlecit/NS) 110 ml @ 110 mls/hr Q24H IVPB Last administered on 08/08/16 11:06; Admin Dose 110 MLS/HR; Start 08/06/16 at 10:00; Stop 08/10/16 at 10:59 Tramadol HCl (Ultram) 50 mg Q6H PRN GTB pain; Start 08/06/16 at 19:00 Acetaminophen 1000 mg 1,000 mg Q4H PRN PO PAIN AND OR ELEVATED TEMP>100; Start 08/06/16 at 23:30 Acetaminophen 100 ml @ 400 mls/hr Q6H PRN IVPB FEVER Last administered on 14:23; Admin Dose 400 MLS/HR; Start 08/07/16 at 14:15 Vancomycin HCl/ Sodium Chloride (Vancocin/NS) 250 ml @ 83.333 mls/ hr Q12H IVPB ; Start 08/08/16 at 18:00 SYLVIE ALBARADO MD August 08, 2016 12:05
[2016-08-08] MEDS ORDERED: VANCOMYCIN 1.5 GM in SOD CHLORIDE 0.9% 250 ML IVPB SCH (18:00)
[2016-08-08] MEDS: RIVAROXABAN 10 MG TABLET PO SCH (18:13)
[2016-08-08] MEDS: morphine 10 MG INJ IV PRN (18:24)
[2016-08-08 19:00] VITALS: BP 118/64; RESP 18
[2016-08-08] MEDS: VANCOMYCIN 1.5 GM in SOD CHLORIDE 0.9% 250 ML IVPB SCH (19:54)
[2016-08-08] MEDS: MAGNESIUM HYDROXIDE 30ML CUP PO SCH (20:04)
[2016-08-08] MEDS: ACETAMINOPHEN 1000MG/100ML IV 100 ML IVPB PRN (20:10)
[2016-08-09] MEDS: HYDROCODONE/APAP (5/325) TAB PO PRN (02:21)
[2016-08-09] MEDS: VANCOMYCIN 1.5 GM in SOD CHLORIDE 0.9% 250 ML IVPB SCH ×2 (06:54→18:41)
[2016-08-09] MEDS: HYDROCODONE/APAP (7.5/325) TAB PO PRN (06:55)
[2016-08-09] MEDS ORDERED: HYDROCODONE/APAP (7.5/325) TAB PO PRN (07:00)
[2016-08-09] MEDS: ONDANSETRON 4 MG INJ IV PRN ×2 (07:03→18:12)
[2016-08-09 07:53] VITALS: BP 116/62; RESP 19
[2016-08-09] MEDS: DEXTROSE 5%-LR 1,000 ML IV SCH (08:30)
--- NOTE | 2016-08-09 08:36 | CONS ---
Date/Time of Note Date/Time of Note DATE: 08/09/16 TIME: 08:35 Assessment/Plan Assessment/Plan Additional Assessment/Plan 1. Post op left knee surgery, Temp noted, cult neg thus far, ID to see 2. Will obtain labs in the am Consultation Date/Type/Reason Admit Date/Time Jul 24, 2016 at 17:51 Type of Consultation: ID Detailed Summary Respiratory: No cough, No shortness of breath Cardiovascular: No chest pain Gastrointestinal: no complaints Genitourinary: no complaints Musculoskeletal: bone/joint pain (mod left knee pain) Exam/Review of Systems Vital Signs Vitals Vital Signs Date Time Temp Pulse Resp B/P Pulse Ox O2 Delivery O2 Flow Rate FiO2 08/09/16 07:53 99.0 87 19 116/62 98 08/08/16 05:18 Nasal Cannula 08/07/16 22:15 2.0 Intake and Output 08/08/16 08/08/16 08/09/16 15:00 23:00 07:00 Intake Total 360 ml 580 ml 720 ml Output Total 3 ml 480 ml Balance 360 ml 577 ml 240 ml Exam Neck: No jvd Respiratory: clear to auscultation Cardiovascular: regular rate and rhythm Gastrointestinal: soft Extremities: No edema (and no calf tend) Results Result Diagram: 08/08/16 0430 08/08/16 0430 Medications Medications Current Medications Senna/Docusate Sodium (Senokot-S) 1 tab BID PO Last administered on 08/08/16 20 :04; Admin Dose 1 TAB; Start 07/25/16 at 09:00 Magnesium Hydroxide (Milk Of Mag) 30 ml BID PRN PO CONSTIPATION Last administered on 07/27/16 20:02; Admin Dose 30 ML; Start 07/25/16 at 00:00 Magnesium Hydroxide (Milk Of Mag) 30 ml HS PO Last administered on 07/30/16 20 :24; Admin Dose 30 ML; Start 07/26/16 at 21:00 Bisacodyl (Dulcolax Supp) [address] CONSTIPATION; Start 07/25/16 at 00 :00 Sodium Biphosphate/ Sodium Phosphate (Fleet Enema) [address] CONSTIPATION; Start 07/25/16 at 00:00 Oxycodone/ Acetaminophen (Percocet (5/ 325)) 1 tab Q4H PRN PO PAIN; Start 07/25 at 00:00 Oxycodone/ Acetaminophen (Percocet (5/ 325)) 2 tab Q4H PRN PO PAIN Last administered on 07/26/16 21:11; Admin Dose 2 TAB; Start 07/25/16 at 00:00 Morphine Sulfate (morphine) 5 mg Q4H PRN IV PAIN LEVEL 7-10 Last administered on 08/08/16 18:24; Admin Dose 5 MG; Start 07/25/16 at 00:00 Ondansetron HCl (Zofran Inj) 4 mg Q4H PRN IV NAUSEA AND/OR VOMITING Last administered on 08/09/16 07:03; Admin Dose 4 MG; Start 07/25/16 at 00:00 Diphenhydramine HCl (Benadryl) 25 mg Q4H PRN PO ITCHING; Start 07/25/16 at 00: 00 Bisacodyl (Dulcolax) 10 mg DAILY PRN PO CONSTIPATION Last administered on 08:19; Admin Dose 10 MG; Start 07/26/16 at 09:30 Vancomycin HCl (Vanco Iv Per Pharmacy) PER PHARMACY DOSING NOTE XX ; Start 07/25 at 18:30 Mupirocin (Bactroban) 1 applic BID TOP Last administered on 08/08/16 20:05; Admin Dose 1 APPLIC; Start 07/27/16 at 21:00 IV Flush (NS 10 ml) 10 ml PRN PRN IV FLUSH LINE Last administered on 07/29/16 04:44; Admin Dose 10 ML; Start 07/27/16 at 20:00 Rifampin 600 mg 600 mg DAILY PO Last administered on 08/08/16 08:53; Admin Dose 600 MG; Start 07/29/16 at 18:00 Dextrose/Lactated Ringer's (D5-Lr) 1,000 ml @ 20 mls/hr Q24H IV Last administered on 08/08/16 08:54; Admin Dose 20 MLS/HR; Start 07/31/16 at 12:30 Loperamide HCl 2 mg 2 mg QID PRN PO DIARRHEA Last administered on 08/02/16 08: 01; Admin Dose 2 MG; Start 08/02/16 at 08:00 Ferric Sodium Gluconate Complex/ Sodium Chloride (Ferrlecit/NS) 110 ml @ 110 mls/hr Q24H IVPB Last administered on 08/08/16 11:06; Admin Dose 110 MLS/HR; Start 08/06/16 at 10:00; Stop 08/10/16 at 10:59 Tramadol HCl (Ultram) 50 mg Q6H PRN GTB pain; Start 08/06/16 at 19:00 Acetaminophen 1000 mg 1,000 mg Q4H PRN PO PAIN AND OR ELEVATED TEMP>100; Start 08/06/16 at 23:30 Acetaminophen 100 ml @ 400 mls/hr Q6H PRN IVPB FEVER Last administered on 20:10; Admin Dose 400 MLS/HR; Start 08/07/16 at 14:15 Vancomycin HCl/ Sodium Chloride (Vancocin/NS) 250 ml @ 83.333 mls/ hr Q12H IVPB Last administered on 08/09/16 06:54; Admin Dose 83.333 MLS/HR; Start at 19:00 Acetaminophen/ Hydrocodone Bitart ([place] (7.5-325)) 1 tab Q4H PRN PO pain Last administered on 08/09/16 06:55; Admin Dose 1 TAB; Start 08/09/16 at 07:00 Acetaminophen/ Hydrocodone Bitart ([place] (7.5-325)) 2 tab Q4H PRN PO pain; Start 08/09/16 at 07:00 Ketorolac Tromethamine (Toradol) 15 mg Q6H PRN IV PAIN; Start 08/09/16 at 09:00 ; Stop 08/09/16 at 20:00 MARCUS SCHILLING MD August 09, 2016 08:36
--- NOTE | 2016-08-09 08:48 | CONS ---
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 continue to follow ESR and CRP for reponse to therapy on a weekly basis anticipate at least a 6 week course of treatment. will follow with you 08/08 - spoke to pharmacy she will be changed to [id number] dosing of vanco edited case management consult to continue IV vanco thru 08/17/16 pt to get weekly cbc, bmp, esr, crp and vanco trough knee cx are pending 08/09 - knee cx is growing GPC, likely s.aureus continue with vanco/rif, if fevers persist will change to cubicin/rif if fevers resolved, as long as pt is on po pain meds can d/c tomorrow with home health pt had hardware and graft removed on 08/07 Problems: Consultation Date/Type/Reason Admit Date/Time Jul 24, 2016 at 17:51 Initial Consult Date 08/07/16 Type of Consultation: ID [id number] HR Interval Summary Free Text/Dictation feels tired but was not wiped out by low grade fever last evening some N but no V no D pain to L knee is present Exam/Review of Systems Vital Signs Vitals Vital Signs Date Time Temp Pulse Resp B/P Pulse Ox O2 Delivery O2 Flow Rate FiO2 08/09/16 07:53 99.0 87 19 116/62 98 08/08/16 05:18 Nasal Cannula 08/07/16 22:15 2.0 Intake and Output 08/08/16 08/08/16 08/09/16 15:00 23:00 07:00 Intake Total 360 ml 580 ml 720 ml Output Total 3 ml 480 ml Balance 360 ml 577 ml 240 ml Exam Constitutional: alert, oriented Head: normocephalic Eyes: nl sclera ENMT: mucosa pink and moist Respiratory: clear to auscultation Cardiovascular: regular rate and rhythm Gastrointestinal: non-tender, soft Extremities: other (L knee is bandaged) Results Result Diagram: 08/08/16 04308/08/16 043 Medications Medications Current Medications Senna/Docusate Sodium (Senokot-S) 1 tab BID PO Last administered on 08/08/16 20 :04; Admin Dose 1 TAB; Start 07/25/16 at 09:00 Magnesium Hydroxide (Milk Of Mag) 30 ml BID PRN PO CONSTIPATION Last administered on 07/27/16 20:02; Admin Dose 30 ML; Start 07/25/16 at 00:00 Magnesium Hydroxide (Milk Of Mag) 30 ml HS PO Last administered on 07/30/16 20 :24; Admin Dose 30 ML; Start 07/26/16 at 21:00 Bisacodyl (Dulcolax Supp) 10 mg DAILY PRN [place] CONSTIPATION; Start 07/25/16 at 00 :00 Sodium Biphosphate/ Sodium Phosphate (Fleet Enema) 133 ml DAILY PRN [place] CONSTIPATION; Start 07/25/16 at 00:00 Oxycodone/ Acetaminophen (Percocet (5/ 325)) 1 tab Q4H PRN PO PAIN; Start 07/25 at 00:00 Oxycodone/ Acetaminophen (Percocet (5/ 325)) 2 tab Q4H PRN PO PAIN Last administered on 07/26/16 21:11; Admin Dose 2 TAB; Start 07/25/16 at 00:00 Morphine Sulfate (morphine) 5 mg Q4H PRN IV PAIN LEVEL 7-10 Last administered on 08/08/16 18:24; Admin Dose 5 MG; Start 07/25/16 at 00:00 Ondansetron HCl (Zofran Inj) 4 mg Q4H PRN IV NAUSEA AND/OR VOMITING Last administered on 08/09/16 07:03; Admin Dose 4 MG; Start 07/25/16 at 00:00 Diphenhydramine HCl (Benadryl) 25 mg Q4H PRN PO ITCHING; Start 07/25/16 at 00: 00 Bisacodyl (Dulcolax) 10 mg DAILY PRN PO CONSTIPATION Last administered on 08:19; Admin Dose 10 MG; Start 07/26/16 at 09:30 Vancomycin HCl (Vanco Iv Per Pharmacy) PER PHARMACY DOSING NOTE XX ; Start 07/25 at 18:30 Mupirocin (Bactroban) 1 applic BID TOP Last administered on 08/08/16 20:05; Admin Dose 1 APPLIC; Start 07/27/16 at 21:00 IV Flush (NS 10 ml) 10 ml PRN PRN IV FLUSH LINE Last administered on 07/29/16 04:44; Admin Dose 10 ML; Start 07/27/16 at 20:00 Rifampin 600 mg 600 mg DAILY PO Last administered on 08/08/16 08:53; Admin Dose 600 MG; Start 07/29/16 at 18:00 Dextrose/Lactated Ringer's (D5-Lr) 1,000 ml @ 20 mls/hr Q24H IV Last administered on 08/08/16 08:54; Admin Dose 20 MLS/HR; Start 07/31/16 at 12:30 Loperamide HCl 2 mg 2 mg QID PRN PO DIARRHEA Last administered on 08/02/16 08: 01; Admin Dose 2 MG; Start 08/02/16 at 08:00 Ferric Sodium Gluconate Complex/ Sodium Chloride (Ferrlecit/NS) 110 ml @ 110 mls/hr Q24H IVPB Last administered on 08/08/16 11:06; Admin Dose 110 MLS/HR; Start 08/06/16 at 10:00; Stop 08/10/16 at 10:59 Tramadol HCl (Ultram) 50 mg Q6H PRN GTB pain; Start 08/06/16 at 19:00 Acetaminophen 1000 mg 1,000 mg Q4H PRN PO PAIN AND OR ELEVATED TEMP>100; Start 08/06/16 at 23:30 Acetaminophen 100 ml @ 400 mls/hr Q6H PRN IVPB FEVER Last administered on 20:10; Admin Dose 400 MLS/HR; Start 08/07/16 at 14:15 Vancomycin HCl/ Sodium Chloride (Vancocin/NS) 250 ml @ 83.333 mls/ hr Q12H IVPB Last administered on 08/09/16 06:54; Admin Dose 83.333 MLS/HR; Start at 19:00 Acetaminophen/ Hydrocodone Bitart ([place] (7.5-325)) 1 tab Q4H PRN PO pain Last administered on 08/09/16t 06:55; Admin Dose 1 TAB; Start 08/09/16 at 07:00 Acetaminophen/ Hydrocodone Bitart ([place] (7.5-325)) 2 tab Q4H PRN PO pain; Start 08/09/16 at 07:00 Ketorolac Tromethamine (Toradol) 15 mg Q6H PRN IV PAIN; Start 08/09/16 at 09:00 ; Stop 08/09/16 at 20:00 SYLVIE ALBARADO MD August 09, 2016 08:48
[2016-08-09] MEDS ORDERED: KETOROLAC 15 MG INJ IV PRN (09:00)
[2016-08-09] MEDS: SENNA/DOCUSATE NA (8.6MG/50MG) TAB PO SCH ×2 (09:59→21:41)
[2016-08-09] MEDS: RIFAMPIN 300 MG CAP PO SCH (09:59)
[2016-08-09] MEDS: SOD FERRIC GLUC COMPLX 125 MG in SOD CHLORIDE 0.9% 100 ML IVPB SCH (10:00)
[2016-08-09] MEDS: MUPIROCIN 2% 22 GM OINT TOP SCH ×2 (10:00→21:41)
[2016-08-09 11:05] LABS: ADD SCAN DIFF NO
[2016-08-09 11:17] LABS: BASOPHILS % 0.3 % (0.0-2.0); EOSINOPHILS # 0.1 10^3/ul (0.0-0.5); EOSINOPHILS % 2.1 % (0.0-7.0); HEMATOCRIT 33.8 % (37.0-47.0); HEMOGLOBIN 11.1 g/dl (12.0-16.0); LYMPHOCYTES # 0.7 10^3/ul (0.8-2.9); LYMPHOCYTES % 21.6 % (15.0-51.0); MEAN CORPUSCULAR HEMOGLOBIN 28.6 pg (29.0-33.0); MEAN CORPUSCULAR HGB CONC 32.8 g/dl (32.0-37.0); MEAN CORPUSCULAR VOLUME 87.1 fl (82.0-101.0); MEAN PLATELET VOLUME 8.3 fl (7.4-10.4); MONOCYTE # 0.4 10^3/ul (0.3-0.9); MONOCYTES % 11.6 % (0.0-11.0); NEUTROPHIL # 2.1 10^3/ul (1.6-7.5); NEUTROPHILS % 64.1 % (39.0-77.0); PLATELET COUNT 368 10^3/UL (140-415); RED BLOOD COUNT 3.88 10^6/ul (4.20-5.40); RED CELL DISTRIBUTION WIDTH 12.9 % (11.5-14.5); WHITE BLOOD COUNT 3.3 10^3/ul (4.8-10.8)
[2016-08-09] MEDS: ACETAMINOPHEN 1000MG/100ML IV 100 ML IVPB PRN ×2 (12:00→21:42)
[2016-08-09 12:09] LABS: CALCIUM 8.6 mg/dl (8.4-10.2); CREATININE 0.67 mg/dl (0.44-1.00); POTASSIUM 4.1 mmol/L (3.5-5.1)
[2016-08-09 12:56] LABS: C-REACTIVE PROTEIN 14.8 mg/dl (0.0-0.9)
--- NOTE | 2016-08-09 16:06 | RADRPT ---
PROCEDURE: XR Chest. CLINICAL INDICATION: Shortness of breath. Postop. TECHNIQUE: Single frontal view. COMPARISON: 08/05/2016. FINDINGS: The lungs are clear. There is a left arm PICC line with the tip in the lower superior vena cava. The heart size is normal. There is no pleural effusion. There is no pneumothorax. IMPRESSION: 1. Left arm PICC line in satisfactory position. 2. Clear lungs. 3. No change from 08/05/2016. RPTAT: QQ .Keith Wells MD, MD Date Time Electronically viewed and signed by .Keith Wells MD, MD on 08/09/2016 16:06 .R/
--- NOTE | 2016-08-09 16:16 | PN ---
Date/Time of Note Date/Time of Note DATE: 08/09/16 TIME: 16:11 Assessment/Plan VTE Prophylaxis VTE Prophylaxis Intervention: ambulation, other (Xarelto) Lines/Catheters IV Catheter Type (from Nrsg): PICC Line Central line still needed: Yes Urinary Cath still in place: No Assessment/Plan Chief Complaint/Hosp Course s/p ACL reconstruction with Achilles allograft on 07/12/16, and s/p I&D with cultures on 07/25/16 and again on 07/27/16, 07/31/16 and removal of graft, hardware and AFSHAN on 08/07/16. Problems: Assessment/Plan - Pain control: Increased [place] to 7.5 1-2 tabs - PT/OT needs to be daily, ordered CPM today for use 2 hours each TID. Set 0- 60 for now. WBAT. 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 Continue Vanc/Rifampin per ID recommendations. Possible change to Daptomycin/Rifampin if ID recommends. Current CRP 14.8. WBC 3.3. CXR recently completed. - Needs to be out of bed to chair for all meals. Continue to use incentive spirometer for atalectasis prevention. Subjective 24 Hr Interval Summary Subjective hx not possible: other (Febrile to 100.4. States she does not feel well today. ) Exam/Review of Systems Vital Signs Vitals Vital Signs Date Time Temp Pulse Resp B/P Pulse Ox O2 Delivery O2 Flow Rate FiO2 08/09/16 15:20 98.7 08/09/16 07:53 87 19 116/62 98 08/08/16 05:18 Nasal Cannula 08/07/16 22:15 2.0 Intake and Output 08/08/16 08/08/16 08/09/16 15:00 23:00 07:00 Intake Total 360 ml 580 ml 720 ml Output Total 3 ml 480 ml Balance 360 ml 577 ml 240 ml Exam Constitutional: alert, oriented Respiratory: normal air movement Cardiovascular: regular rate and rhythm Musculoskeletal: other (No calf tenderness. NVID in left leg. Painful and tender. Wound vac in place. No drainage. Hemovac removed today. ) Results Result Diagram: 08/09/16 1042 08/09/16 1042 Results 24 hrs Laboratory Tests Test 08/09/16 10:42 White Blood Count 3.3 #L Red Blood Count 3.88 L Hemoglobin 11.1 L Hematocrit 33.8 L Mean Corpuscular Volume 87.1 Mean Corpuscular Hemoglobin 28.6 L Mean Corpuscular Hemoglobin Concent 32.8 Red Cell Distribution Width 12.9 Platelet Count 368 Mean Platelet Volume 8.3 Neutrophils % 64.1 Lymphocytes % 21.6 Monocytes % 11.6 H Eosinophils % 2.1 Basophils % 0.3 Nucleated Red Blood Cells % 0.0 Neutrophils # 2.1 Lymphocytes # 0.7 L Monocytes # 0.4 Eosinophils # 0.1 Basophils # 0.0 Nucleated Red Blood Cells # 0.0 Sodium Level 134 L Potassium Level 4.1 Chloride Level 100 Carbon Dioxide Level 27 Anion Gap 11 Blood Urea Nitrogen 4 L Creatinine 0.67 Glucose Level 96 Calcium Level 8.6 C-Reactive Protein 14.8 H Medications Medications Current Medications Senna/Docusate Sodium (Senokot-S) 1 tab BID PO Last administered on 08/09/16 09 :59; Admin Dose 1 TAB; Start 07/25/16 at 09:00 Magnesium Hydroxide (Milk Of Mag) 30 ml BID PRN PO CONSTIPATION Last administered on 07/27/16 20:02; Admin Dose 30 ML; Start 07/25/16 at 00:00 Magnesium Hydroxide (Milk Of Mag) 30 ml HS PO Last administered on 07/30/16 20 :24; Admin Dose 30 ML; Start 07/26/16 at 21:00 Bisacodyl (Dulcolax Supp) 10 mg DAILY PRN [place] CONSTIPATION; Start 07/25/16 at 00 :00 Sodium Biphosphate/ Sodium Phosphate (Fleet Enema) 133 ml DAILY PRN [place] CONSTIPATION; Start 07/25/16 at 00:00 Oxycodone/ Acetaminophen (Percocet (5/ 325)) 1 tab Q4H PRN PO PAIN; Start 07/25 at 00:00 Oxycodone/ Acetaminophen (Percocet (5/ 325)) 2 tab Q4H PRN PO PAIN Last administered on 07/26/16 21:11; Admin Dose 2 TAB; Start 07/25/16 at 00:00 Morphine Sulfate (morphine) 5 mg Q4H PRN IV PAIN LEVEL 7-10 Last administered on 08/08/16 18:24; Admin Dose 5 MG; Start 07/25/16 at 00:00 Ondansetron HCl (Zofran Inj) 4 mg Q4H PRN IV NAUSEA AND/OR VOMITING Last administered on 08/09/16 07:03; Admin Dose 4 MG; Start 07/25/16 at 00:00 Diphenhydramine HCl (Benadryl) 25 mg Q4H PRN PO ITCHING; Start 07/25/16 at 00: 00 Bisacodyl (Dulcolax) 10 mg DAILY PRN PO CONSTIPATION Last administered on 08:19; Admin Dose 10 MG; Start 07/26/16 at 09:30 Vancomycin HCl (Vanco Iv Per Pharmacy) PER PHARMACY DOSING NOTE XX ; Start 07/25 at 18:30 Mupirocin (Bactroban) 1 applic BID TOP Last administered on 08/09/16 10:00; Admin Dose 1 APPLIC; Start 07/27/16 at 21:00 IV Flush (NS 10 ml) 10 ml PRN PRN IV FLUSH LINE Last administered on 07/29/16 04:44; Admin Dose 10 ML; Start 07/27/16 at 20:00 Rifampin 600 mg 600 mg DAILY PO Last administered on 08/09/16 09:59; Admin Dose 600 MG; Start 07/29/16 at 18:00 Dextrose/Lactated Ringer's (D5-Lr) 1,000 ml @ 20 mls/hr Q24H IV Last administered on 08/08/16 08:54; Admin Dose 20 MLS/HR; Start 07/31/16 at 12:30 Loperamide HCl 2 mg 2 mg QID PRN PO DIARRHEA Last administered on 08/02/16 08: 01; Admin Dose 2 MG; Start 08/02/16 at 08:00 Ferric Sodium Gluconate Complex/ Sodium Chloride (Ferrlecit/NS) 110 ml @ 110 mls/hr Q24H IVPB Last administered on 08/09/16 10:00; Admin Dose 110 MLS/HR; Start 08/06/16 at 10:00; Stop 08/10/16 at 10:59 Tramadol HCl (Ultram) 50 mg Q6H PRN GTB pain; Start 08/06/16 at 19:00 Acetaminophen 1000 mg 1,000 mg Q4H PRN PO PAIN AND OR ELEVATED TEMP>100; Start 08/06/16 at 23:30 Acetaminophen 100 ml @ 400 mls/hr Q6H PRN IVPB FEVER Last administered on 12:00; Admin Dose 400 MLS/HR; Start 08/07/16 at 14:15 Vancomycin HCl/ Sodium Chloride (Vancocin/NS) 250 ml @ 83.333 mls/ hr Q12H IVPB Last administered on 08/09/16 06:54; Admin Dose 83.333 MLS/HR; Start at 19:00 Acetaminophen/ Hydrocodone Bitart ([place] (7.5-325)) 1 tab Q4H PRN PO pain Last administered on 08/09/16 06:55; Admin Dose 1 TAB; Start 08/09/16 at 07:00 Acetaminophen/ Hydrocodone Bitart ([place] (7.5-325)) 2 tab Q4H PRN PO pain; Start 08/09/16 at 07:00 Ketorolac Tromethamine (Toradol) 15 mg Q6H PRN IV PAIN; Start 08/09/16 at 09:00 ; Stop 08/09/16 at 20:00 MERLYN TAFOYA MD August 09, 2016 16:16
[2016-08-09] MEDS: RIVAROXABAN 10 MG TABLET PO SCH (17:25)
[2016-08-09 19:00] VITALS: BP 118/63; RESP 18
[2016-08-09] MEDS: MAGNESIUM HYDROXIDE 30ML CUP PO SCH (21:00)
[2016-08-09] MEDS: DIAZEPAM 2 MG TAB PO SCH (22:00)
[2016-08-10] MEDS: DIAZEPAM 2 MG TAB PO SCH ×4 (06:00→22:00)
[2016-08-10 06:53] LABS: ADD SCAN DIFF NO
[2016-08-10 06:59] LABS: HEMATOCRIT 32.2 % (37.0-47.0); HEMOGLOBIN 10.6 g/dl (12.0-16.0); MEAN CORPUSCULAR HEMOGLOBIN 28.5 pg (29.0-33.0); MEAN CORPUSCULAR HGB CONC 32.9 g/dl (32.0-37.0); MEAN CORPUSCULAR VOLUME 86.6 fl (82.0-101.0); MEAN PLATELET VOLUME 8.5 fl (7.4-10.4); PLATELET COUNT 326 10^3/UL (140-415); RED BLOOD COUNT 3.72 10^6/ul (4.20-5.40); RED CELL DISTRIBUTION WIDTH 12.7 % (11.5-14.5); WHITE BLOOD COUNT 2.3 10^3/ul (4.8-10.8)
--- NOTE | 2016-08-10 07:07 | CONS ---
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 continue to follow ESR and CRP for reponse to therapy on a weekly basis anticipate at least a 6 week course of treatment. will follow with you 08/08 - spoke to pharmacy she will be changed to [id number] dosing of vanco edited case management consult to continue IV vanco thru 08/17/16 pt to get weekly cbc, bmp, esr, crp and vanco trough knee cx are pending 08/09 - knee cx is growing GPC, likely s.aureus continue with vanco/rif, if fevers persist will change to cubicin/rif if fevers resolved, as long as pt is on po pain meds can d/c tomorrow with home health pt had hardware and graft removed on 08/07 08/10 - knee cx has s.aureus again, no fungal organisms seen, it was just tissue fragments d/c vanco/rifampin pt may be having drug fever to vanco and if not she is having low wbc due to it and may have failed it now that hardware and graft has been removed no need for rifampin and she has significant nausea start cubicin 6mg/kg q24 hours case management referral has been updated to reflect this change Problems: Consultation Date/Type/Reason Admit Date/Time Jul 24, 2016 at 17:51 Initial Consult Date 08/07/16 Type of Consultation: ID 24 HR Interval Summary Free Text/Dictation pt persists with fevers 48 hours after final surgery she has nausea without vomiting no stools in last few days breathing is ok Exam/Review of Systems Vital Signs Vitals Vital Signs Date Time Temp Pulse Resp B/P Pulse Ox O2 Delivery O2 Flow Rate FiO2 08/09/16 22:56 98.7 08/09/16 19:00 95 18 118/63 96 08/08/16 05:18 Nasal Cannula 08/07/16 22:15 2.0 Intake and Output 08/09/16 08/09/16 08/10/16 15:00 23:00 07:00 Intake Total 210 ml 810 ml 875 ml Output Total 0 ml Balance 210 ml 810 ml 875 ml Results Result Diagram: 08/09/16 1042 08/09/16 1042 Results 24 hrs Laboratory Tests Test 08/09/16 10:42 White Blood Count 3.3 #L Red Blood Count 3.88 L Hemoglobin 11.1 L Hematocrit 33.8 L Mean Corpuscular Volume 87.1 Mean Corpuscular Hemoglobin 28.6 L Mean Corpuscular Hemoglobin Concent 32.8 Red Cell Distribution Width 12.9 Platelet Count 368 Mean Platelet Volume 8.3 Neutrophils % 64.1 Lymphocytes % 21.6 Monocytes % 11.6 H Eosinophils % 2.1 Basophils % 0.3 Nucleated Red Blood Cells % 0.0 Neutrophils # 2.1 Lymphocytes # 0.7 L Monocytes # 0.4 Eosinophils # 0.1 Basophils # 0.0 Nucleated Red Blood Cells # 0.0 Sodium Level 134 L Potassium Level 4.1 Chloride Level 100 Carbon Dioxide Level 27 Anion Gap 11 Blood Urea Nitrogen 4 L Creatinine 0.67 Glucose Level 96 Calcium Level 8.6 C-Reactive Protein 14.8 H Medications Medications Current Medications Senna/Docusate Sodium (Senokot-S) 1 tab BID PO Last administered on 08/09/16 21 :41; Admin Dose 1 TAB; Start 07/25/16 at 09:00 Magnesium Hydroxide (Milk Of Mag) 30 ml BID PRN PO CONSTIPATION Last administered on 07/27/16 20:02; Admin Dose 30 ML; Start 07/25/16 at 00:00 Magnesium Hydroxide (Milk Of Mag) 30 ml HS PO Last administered on 07/30/16 20 :24; Admin Dose 30 ML; Start 07/26/16 at 21:00 Bisacodyl (Dulcolax Supp) 10 mg DAILY PRN [place] CONSTIPATION; Start 07/25/16 at 00 :00 Sodium Biphosphate/ Sodium Phosphate (Fleet Enema) 133 ml DAILY PRN [place] CONSTIPATION; Start 07/25/16 at 00:00 Oxycodone/ Acetaminophen (Percocet (5/ 325)) 1 tab Q4H PRN PO PAIN; Start 07/25 at 00:00 Oxycodone/ Acetaminophen (Percocet (5/ 325)) 2 tab Q4H PRN PO PAIN Last administered on 07/26/16 21:11; Admin Dose 2 TAB; Start 07/25/16 at 00:00 Morphine Sulfate (morphine) 5 mg Q4H PRN IV PAIN LEVEL 7-10 Last administered on 08/08/16 18:24; Admin Dose 5 MG; Start 07/25/16 at 00:00 Ondansetron HCl (Zofran Inj) 4 mg Q4H PRN IV NAUSEA AND/OR VOMITING Last administered on 08/09/16 18:12; Admin Dose 4 MG; Start 07/25/16 at 00:00 Diphenhydramine HCl (Benadryl) 25 mg Q4H PRN PO ITCHING; Start 07/25/16 at 00: 00 Bisacodyl (Dulcolax) 10 mg DAILY PRN PO CONSTIPATION Last administered on 08:19; Admin Dose 10 MG; Start 07/26/16 at 09:30 Mupirocin (Bactroban) 1 applic BID TOP Last administered on 08/09/16 21:41; Admin Dose 1 APPLIC; Start 07/27/16 at 21:00 IV Flush 10 ml 10 ml PRN PRN IV FLUSH LINE Last administered on 07/29/16 04:44 ; Admin Dose 10 ML; Start 07/27/16 at 20:00 Dextrose/Lactated Ringer's (D5-Lr) 1,000 ml @ 20 mls/hr Q24H IV Last administered on 08/08/16 08:54; Admin Dose 20 MLS/HR; Start 07/31/16 at 12:30 Loperamide HCl 2 mg 2 mg QID PRN PO DIARRHEA Last administered on 08/02/16 08: 01; Admin Dose 2 MG; Start 08/02/16 at 08:00 Ferric Sodium Gluconate Complex/ Sodium Chloride (Ferrlecit/NS) 110 ml @ 110 mls/hr Q24H IVPB Last administered on 08/09/16 10:00; Admin Dose 110 MLS/HR; Start 08/06/16 at 10:00; Stop 08/10/16 at 10:59 Tramadol HCl (Ultram) 50 mg Q6H PRN GTB pain; Start 08/06/16 at 19:00 Acetaminophen 1000 mg 1,000 mg Q4H PRN PO PAIN AND OR ELEVATED TEMP>100; Start 08/06/16 at 23:30 Acetaminophen (Ofirmev 1000mg/ 100ml Iv) 100 ml @ 400 mls/hr Q6H PRN IVPB FEVER Last administered on 08/09/16 21:42; Admin Dose 400 MLS/HR; Start 08/07/16 at 14:15 Acetaminophen/ Hydrocodone Bitart ([place] (7.5-325)) 1 tab Q4H PRN PO pain Last administered on 08/09/16 06:55; Admin Dose 1 TAB; Start 08/09/16 at 07:00 Acetaminophen/ Hydrocodone Bitart ([place] (7.5-325)) 2 tab Q4H PRN PO pain; Start 08/09/16 at 07:00 Diazepam 2 mg 2 mg Q8 PO ; Start 08/09/16 at 22:00 Daptomycin/Sodium Chloride (Cubicin/NS) 100 ml @ 200 mls/hr Q24H IVPB ; Start 08/10/16 at 07:00; Status UNV SYLVIE ALBARADO MD August 10, 2016 07:07
[2016-08-10] MEDS: ONDANSETRON 4 MG INJ IV PRN (07:34)
[2016-08-10 08:19] VITALS: BP 133/75; RESP 18
[2016-08-10] MEDS: DEXTROSE 5%-LR 1,000 ML IV SCH ×2 (08:30→22:30)
[2016-08-10] MEDS: SENNA/DOCUSATE NA (8.6MG/50MG) TAB PO SCH ×2 (09:00→21:00)
--- NOTE | 2016-08-10 09:12 | PN ---
Date/Time of Note Date/Time of Note DATE: 08/10/16 TIME: 09:09 Assessment/Plan VTE Prophylaxis VTE Prophylaxis Intervention: ambulation, anti-embolic stocking Lines/Catheters IV Catheter Type (from Nrsg): PICC Line Central line still needed: Yes Urinary Cath still in place: No Assessment/Plan Chief Complaint/Hosp Course Chief Complaint/Hosp Course s/p ACL reconstruction with Achilles allograft on 07/12/16, and s/p I&D with cultures on 07/25/16 and again on 07/27/16, 07/31/16 and removal of graft, hardware and AFSHAN on 08/07/16. Problems: Assessment/Plan - Pain control: [place] to 7.5 1-2 tabs - PT/OT needs to be daily, ordered CPM today for use 2 hours each TID. Set 0- 60 for now. WBAT. 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 Follow ID recs, switching from vanc/ rifampin to cubicin - Needs to be out of bed to chair for all meals. Continue to use incentive spirometer for atalectasis prevention. Problems: Subjective 24 Hr Interval Summary Free Text/Dictation [place] very nauseated yesterday and was frequently febrile. Feels better this am. Constitutional: febrile Exam/Review of Systems Vital Signs Vitals Vital Signs Date Time Temp Pulse Resp B/P Pulse Ox O2 Delivery O2 Flow Rate FiO2 08/10/16 08:19 98.5 85 18 133/75 96 08/08/16 05:18 Nasal Cannula 08/07/16 22:15 2.0 Intake and Output 08/09/16 08/09/16 08/10/16 15:00 23:00 07:00 Intake Total 210 ml 810 ml 875 ml Output Total 0 ml Balance 210 ml 810 ml 875 ml Exam Constitutional: alert, oriented Head: normocephalic Eyes: nl conjunctiva Extremities: normal pulses Additional Comments Left knee dressing in place, no discharge, incisional vac with adequate seal. Results Result Diagram: 08/10/16 0620 08/09/16 1042 Results 24 hrs Laboratory Tests Test 08/09/16 10:42 08/10/16 06:20 White Blood Count 3.3 #L 2.3 #L Red Blood Count 3.88 L 3.72 L Hemoglobin 11.1 L 10.6 L Hematocrit 33.8 L 32.2 L Mean Corpuscular Volume 87.1 86.6 Mean Corpuscular Hemoglobin 28.6 L 28.5 L Mean Corpuscular Hemoglobin Concent 32.8 32.9 Red Cell Distribution Width 12.9 12.7 Platelet Count 368 326 Mean Platelet Volume 8.3 8.5 Neutrophils % 64.1 Lymphocytes % 21.6 Monocytes % 11.6 H Eosinophils % 2.1 Basophils % 0.3 Nucleated Red Blood Cells % 0.0 Neutrophils # 2.1 Lymphocytes # 0.7 L Monocytes # 0.4 Eosinophils # 0.1 Basophils # 0.0 Nucleated Red Blood Cells # 0.0 Sodium Level 134 L Potassium Level 4.1 Chloride Level 100 Carbon Dioxide Level 27 Anion Gap 11 Blood Urea Nitrogen 4 L Creatinine 0.67 Glucose Level 96 Calcium Level 8.6 C-Reactive Protein 14.8 H Vancomycin Level Trough 9.4 L Medications Medications Current Medications Senna/Docusate Sodium (Senokot-S) 1 tab BID PO Last administered on 08/09/16 21 :41; Admin Dose 1 TAB; Start 07/25/16 at 09:00 Magnesium Hydroxide (Milk Of Mag) 30 ml BID PRN PO CONSTIPATION Last administered on 07/27/16 20:02; Admin Dose 30 ML; Start 07/25/16 at 00:00 Magnesium Hydroxide (Milk Of Mag) 30 ml HS PO Last administered on 07/30/16 20 :24; Admin Dose 30 ML; Start 07/26/16 at 21:00 Bisacodyl (Dulcolax Supp) 10 mg DAILY PRN [place] CONSTIPATION; Start 07/25/16 at 00 :00 Sodium Biphosphate/ Sodium Phosphate (Fleet Enema) 133 ml DAILY PRN [place] CONSTIPATION; Start 07/25/16 at 00:00 Oxycodone/ Acetaminophen (Percocet (5/ 325)) 1 tab Q4H PRN PO PAIN; Start 07/25 at 00:00 Oxycodone/ Acetaminophen (Percocet (5/ 325)) 2 tab Q4H PRN PO PAIN Last administered on 07/26/16 21:11; Admin Dose 2 TAB; Start 07/25/16 at 00:00 Morphine Sulfate (morphine) 5 mg Q4H PRN IV PAIN LEVEL 7-10 Last administered on 08/08/16 18:24; Admin Dose 5 MG; Start 07/25/16 at 00:00 Ondansetron HCl (Zofran Inj) 4 mg Q4H PRN IV NAUSEA AND/OR VOMITING Last administered on 08/10/16 07:34; Admin Dose 4 MG; Start 07/25/16 at 00:00 Diphenhydramine HCl (Benadryl) 25 mg Q4H PRN PO ITCHING; Start 07/25/16 at 00: 00 Bisacodyl (Dulcolax) 10 mg DAILY PRN PO CONSTIPATION Last administered on 08:19; Admin Dose 10 MG; Start 07/26/16 at 09:30 Mupirocin (Bactroban) 1 applic BID TOP Last administered on 08/09/16 21:41; Admin Dose 1 APPLIC; Start 07/27/16 at 21:00 IV Flush 10 ml 10 ml PRN PRN IV FLUSH LINE Last administered on 07/29/16 04:44 ; Admin Dose 10 ML; Start 07/27/16 at 20:00 Dextrose/Lactated Ringer's (D5-Lr) 1,000 ml @ 20 mls/hr Q24H IV Last administered on 08/08/16 08:54; Admin Dose 20 MLS/HR; Start 07/31/16 at 12:30 Loperamide HCl 2 mg 2 mg QID PRN PO DIARRHEA Last administered on 08/02/16 08: 01; Admin Dose 2 MG; Start 08/02/16 at 08:00 Ferric Sodium Gluconate Complex/ Sodium Chloride (Ferrlecit/NS) 110 ml @ 110 mls/hr Q24H IVPB Last administered on 08/09/16 10:00; Admin Dose 110 MLS/HR; Start 08/06/16 at 10:00; Stop 08/10/16 at 10:59 Tramadol HCl (Ultram) 50 mg Q6H PRN GTB pain; Start 08/06/16 at 19:00 Acetaminophen 1000 mg 1,000 mg Q4H PRN PO PAIN AND OR ELEVATED TEMP>100; Start 08/06/16 at 23:30 Acetaminophen (Ofirmev 1000mg/ 100ml Iv) 100 ml @ 400 mls/hr Q6H PRN IVPB FEVER Last administered on 08/09/16 21:42; Admin Dose 400 MLS/HR; Start 08/07/16 at 14:15 Acetaminophen/ Hydrocodone Bitart ([place] (7.5-325)) 1 tab Q4H PRN PO pain Last administered on 08/09/16 06:55; Admin Dose 1 TAB; Start 08/09/16 at 07:00 Acetaminophen/ Hydrocodone Bitart ([place] (7.5-325)) 2 tab Q4H PRN PO pain; Start 08/09/16 at 07:00 Diazepam 2 mg 2 mg Q8 PO Last administered on 08/10/16 07:35; Admin Dose 2 MG; Start 08/09/16 at 22:00 Daptomycin/Sodium Chloride (Cubicin/NS) 100 ml @ 200 mls/hr Q24H IVPB ; Start 08/10/16 at 08:30 RADHA CUEVA MD August 10, 2016 09:12
[2016-08-10 09:38] LABS: LYMPHOCYTES # 0.5 10^3/ul (0.8-2.9); MONOCYTE # 0.6 10^3/ul (0.3-0.9); NEUTROPHIL # 1.1 10^3/ul (1.6-7.5)
[2016-08-10] MEDS: DAPTOMYCIN 390 MG in SOD CHLORIDE 0.9% 100 ML IVPB SCH (10:53)
[2016-08-10] MEDS: SOD FERRIC GLUC COMPLX 125 MG in SOD CHLORIDE 0.9% 100 ML IVPB SCH (10:53)
--- NOTE | 2016-08-10 11:07 | CONS ---
Date/Time of Note Date/Time of Note DATE: 08/10/16 TIME: 11:05 Assessment/Plan Assessment/Plan Additional Assessment/Plan 1. Temp noted yest and WBC ct, change in abx per ID 2. Labs rev Consultation Date/Type/Reason Admit Date/Time Jul 24, 2016 at 17:51 Type of Consultation: ID Detailed Summary Respiratory: No cough, No pleuritic pain, No shortness of breath Cardiovascular: No chest pain Gastrointestinal: no complaints Genitourinary: no complaints Musculoskeletal: bone/joint pain (mild left knee discomfort) Exam/Review of Systems Vital Signs Vitals Vital Signs Date Time Temp Pulse Resp B/P Pulse Ox O2 Delivery O2 Flow Rate FiO2 08/10/16 08:19 98.5 85 18 133/75 96 08/08/16 05:18 Nasal Cannula 08/07/16 22:15 2.0 Intake and Output 08/09/16 08/09/16 08/10/16 15:00 23:00 07:00 Intake Total 210 ml 810 ml 875 ml Output Total 0 ml Balance 210 ml 810 ml 875 ml Exam Neck: No jvd Respiratory: clear to auscultation Cardiovascular: regular rate and rhythm Gastrointestinal: soft Extremities: No edema (and no calf tend) Results Result Diagram: 08/10/16 0620 08/09/16 1042 Results 24 hrs Laboratory Tests Test 08/10/16 06:20 White Blood Count 2.3 #L Red Blood Count 3.72 L Hemoglobin 10.6 L Hematocrit 32.2 L Mean Corpuscular Volume 86.6 Mean Corpuscular Hemoglobin 28.5 L Mean Corpuscular Hemoglobin Concent 32.9 Red Cell Distribution Width 12.7 Platelet Count 326 Mean Platelet Volume 8.5 Neutrophils % 49.0 Band Neutrophils % 4.0 Lymphocytes % 20.0 Monocytes % 25.0 H Eosinophils % 1.0 Basophils % 1.0 Neutrophils # 1.1 L Lymphocytes # 0.5 L Monocytes # 0.6 Eosinophils # 0.0 Basophils # 0.0 Vancomycin Level Trough 9.4 L Medications Medications Current Medications Senna/Docusate Sodium (Senokot-S) 1 tab BID PO Last administered on 08/09/16t 21 :41; Admin Dose 1 TAB; Start 07/25/16 at 09:00 Magnesium Hydroxide (Milk Of Mag) 30 ml BID PRN PO CONSTIPATION Last administered on 07/27/16 20:02; Admin Dose 30 ML; Start 07/25/16 at 00:00 Magnesium Hydroxide (Milk Of Mag) 30 ml HS PO Last administered on 07/30/16 20 :24; Admin Dose 30 ML; Start 07/26/16 at 21:00 Bisacodyl (Dulcolax Supp) 10 mg DAILY PRN [place] CONSTIPATION; Start 07/25/16 at 00 :00 Sodium Biphosphate/ Sodium Phosphate (Fleet Enema) 133 ml DAILY PRN [place] CONSTIPATION; Start 07/25/16 at 00:00 Oxycodone/ Acetaminophen (Percocet (5/ 325)) 1 tab Q4H PRN PO PAIN; Start 07/25 at 00:00 Oxycodone/ Acetaminophen (Percocet (5/ 325)) 2 tab Q4H PRN PO PAIN Last administered on 07/26/16 21:11; Admin Dose 2 TAB; Start 07/25/16 at 00:00 Morphine Sulfate (morphine) 5 mg Q4H PRN IV PAIN LEVEL 7-10 Last administered on 08/08/16 18:24; Admin Dose 5 MG; Start 07/25/16 at 00:00 Ondansetron HCl (Zofran Inj) 4 mg Q4H PRN IV NAUSEA AND/OR VOMITING Last administered on 08/10/16 07:34; Admin Dose 4 MG; Start 07/25/16 at 00:00 Diphenhydramine HCl (Benadryl) 25 mg Q4H PRN PO ITCHING; Start 07/25/16 at 00: 00 Bisacodyl (Dulcolax) 10 mg DAILY PRN PO CONSTIPATION Last administered on 08:19; Admin Dose 10 MG; Start 07/26/16 at 09:30 Mupirocin (Bactroban) 1 applic BID TOP Last administered on 08/09/16 21:41; Admin Dose 1 APPLIC; Start 07/27/16 at 21:00 IV Flush 10 ml 10 ml PRN PRN IV FLUSH LINE Last administered on 07/29/16 04:44 ; Admin Dose 10 ML; Start 07/27/16 at 20:00 Dextrose/Lactated Ringer's (D5-Lr) 1,000 ml @ 20 mls/hr Q24H IV Last administered on 08/08/16 08:54; Admin Dose 20 MLS/HR; Start 07/31/16 at 12:30 Loperamide HCl (Imodium Cap) 2 mg QID PRN PO DIARRHEA Last administered on 08/02 08:01; Admin Dose 2 MG; Start 08/02/16 at 08:00 Tramadol HCl (Ultram) 50 mg Q6H PRN GTB pain; Start 08/06/16 at 19:00 Acetaminophen 1000 mg 1,000 mg Q4H PRN PO PAIN AND OR ELEVATED TEMP>100; Start 08/06/16 at 23:30 Acetaminophen (Ofirmev 1000mg/ 100ml Iv) 100 ml @ 400 mls/hr Q6H PRN IVPB FEVER Last administered on 08/09/16 21:42; Admin Dose 400 MLS/HR; Start 08/07/16 at 14:15 Acetaminophen/ Hydrocodone Bitart ([place] (7.5-325)) 1 tab Q4H PRN PO pain Last administered on 08/09/16 06:55; Admin Dose 1 TAB; Start 08/09/16 at 07:00 Acetaminophen/ Hydrocodone Bitart ([place] (7.5-325)) 2 tab Q4H PRN PO pain; Start 08/09/16 at 07:00 Diazepam 2 mg 2 mg Q8 PO Last administered on 08/10/16 07:35; Admin Dose 2 MG; Start 08/09/16 at 22:00 Daptomycin/Sodium Chloride (Cubicin/NS) 100 ml @ 200 mls/hr Q24H IVPB Last administered on 08/10/16 10:53; Admin Dose 200 MLS/HR; Start 08/10/16 at 08:30 MARCUS SCHILLING MD August 10, 2016 11:07
[2016-08-10] MEDS: MUPIROCIN 2% 22 GM OINT TOP SCH ×2 (15:17→22:00)
[2016-08-10] MEDS: RIVAROXABAN 10 MG TABLET PO SCH (18:31)
[2016-08-10 19:54] VITALS: BP 127/70; RESP 19
[2016-08-10] MEDS: MAGNESIUM HYDROXIDE 30ML CUP PO SCH (21:00)
[2016-08-11] MEDS: ACETAMINOPHEN 500 MG TAB PO PRN ×2 (03:39→17:08)
[2016-08-11 05:02] LABS: ADD SCAN DIFF NO
[2016-08-11 05:07] LABS: ABNORMAL IP MESSAGE 1; BASOPHILS % 0.5 % (0.0-2.0); EOSINOPHILS # 0.1 10^3/ul (0.0-0.5); EOSINOPHILS % 2.3 % (0.0-7.0); HEMATOCRIT 30.1 % (37.0-47.0); LYMPHOCYTES # 1.1 10^3/ul (0.8-2.9); LYMPHOCYTES % 49.8 % (15.0-51.0); MEAN CORPUSCULAR HEMOGLOBIN 29.1 pg (29.0-33.0); MEAN CORPUSCULAR HGB CONC 33.2 g/dl (32.0-37.0); MEAN CORPUSCULAR VOLUME 87.5 fl (82.0-101.0); MEAN PLATELET VOLUME 8.7 fl (7.4-10.4); MONOCYTE # 0.4 10^3/ul (0.3-0.9); MONOCYTES % 16.7 % (0.0-11.0); NEUTROPHIL # 0.7 10^3/ul (1.6-7.5); NEUTROPHILS % 30.7 % (39.0-77.0); PLATELET COUNT 327 10^3/UL (140-415); RED BLOOD COUNT 3.44 10^6/ul (4.20-5.40); RED CELL DISTRIBUTION WIDTH 12.7 % (11.5-14.5); WHITE BLOOD COUNT 2.2 10^3/ul (4.8-10.8)
[2016-08-11 05:21] LABS: ALBUMIN 3.1 g/dl (3.3-4.9); ALBUMIN/GLOBULIN RATIO 0.86; BILIRUBIN,INDIRECT 0.2 mg/dl (0-1.1); BILIRUBIN,TOTAL 0.2 mg/dl (0.2-1.3); CALCIUM 8.5 mg/dl (8.4-10.2); CREATININE 0.52 mg/dl (0.44-1.00); POTASSIUM 3.9 mmol/L (3.5-5.1); TOTAL PROTEIN 6.7 g/dl (6.1-8.1)
[2016-08-11] MEDS: DIAZEPAM 2 MG TAB PO SCH ×3 (06:00→22:00)
[2016-08-11 07:49] VITALS: BP 131/78; RESP 18
[2016-08-11] MEDS: DAPTOMYCIN 390 MG in SOD CHLORIDE 0.9% 100 ML IVPB SCH (08:51)
[2016-08-11] MEDS: MUPIROCIN 2% 22 GM OINT TOP SCH ×2 (08:51→22:03)
[2016-08-11] MEDS: SENNA/DOCUSATE NA (8.6MG/50MG) TAB PO SCH ×2 (08:57→22:03)
--- NOTE | 2016-08-11 09:45 | CONS ---
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 continue to follow ESR and CRP for reponse to therapy on a weekly basis anticipate at least a 6 week course of treatment. will follow with you 08/08 - spoke to pharmacy she will be changed to [id number] dosing of vanco edited case management consult to continue IV vanco thru 09/17/16 pt to get weekly cbc, bmp, esr, crp and vanco trough knee cx are pending 08/09 - knee cx is growing GPC, likely s.aureus continue with vanco/rif, if fevers persist will change to cubicin/rif if fevers resolved, as long as pt is on po pain meds can d/c tomorrow with home health pt had hardware and graft removed on 08/07 08/10 - knee cx has s.aureus again, no fungal organisms seen, it was just tissue fragments d/c vanco/rifampin pt may be having drug fever to vanco and if not she is having low wbc due to it and may have failed it now that hardware and graft has been removed no need for rifampin and she has significant nausea start cubicin 6mg/kg q24 hours case management referral has been updated to reflect this change 08/11 - improved on cubicin if pt remains afebrile on cubicin then ok for d/c from ID perspective tomorrow continue cubicin thru 09/17/16 low WBC likely due to vanco and/or rifampin and should improve in a few days Problems: Consultation Date/Type/Reason Admit Date/Time Jul 24, 2016 at 17:51 Initial Consult Date 08/07/16 Type of Consultation: ID 24 HR Interval Summary Free Text/Dictation pt is feeling better no nausea and appetite is better less pain to L knee has swelling/tenderness to L groin Exam/Review of Systems Vital Signs Vitals Vital Signs Date Time Temp Pulse Resp B/P Pulse Ox O2 Delivery O2 Flow Rate FiO2 08/11/16 07:49 98.3 77 18 131/78 97 08/08/16 05:18 Nasal Cannula 08/07/16 22:15 2.0 Intake and Output 08/10/16 08/10/16 08/11/16 15:00 23:00 07:00 Intake Total 210 ml 450 ml 380 ml Output Total 400 ml 300 ml Balance 210 ml 50 ml 80 ml Exam Constitutional: alert, oriented Head: normocephalic Eyes: nl sclera ENMT: mucosa pink and moist Respiratory: clear to auscultation Cardiovascular: regular rate and rhythm Gastrointestinal: non-tender, soft Extremities: other (L knee is bandaged but no pain with pressure to it) Lymph: other (L groin swelling about 1.5cm, no redness but slightly tender) Results Result Diagram: 08/11/16 0434 08/11/16 0430 Results 24 hrs Laboratory Tests Test 08/11/16 04:30 08/11/16 04:34 Sodium Level 136 Potassium Level 3.9 Chloride Level 106 Carbon Dioxide Level 24 Anion Gap 10 Blood Urea Nitrogen 4 L Creatinine 0.52 Glucose Level 347 #H Calcium Level 8.5 Total Bilirubin 0.2 Direct Bilirubin 0.00 Indirect Bilirubin 0.2 Aspartate Amino Transf (AST/SGOT) 113 H Alanine Aminotransferase (ALT/SGPT) 107 H Alkaline Phosphatase 92 Total Protein 6.7 Albumin 3.1 L Globulin 3.60 H Albumin/Globulin Ratio 0.86 White Blood Count 2.2 L Red Blood Count 3.44 L Hemoglobin 10.0 L Hematocrit 30.1 L Mean Corpuscular Volume 87.5 Mean Corpuscular Hemoglobin 29.1 Mean Corpuscular Hemoglobin Concent 33.2 Red Cell Distribution Width 12.7 Platelet Count 327 Mean Platelet Volume 8.7 Neutrophils % 30.7 L Lymphocytes % 49.8 Monocytes % 16.7 H Eosinophils % 2.3 Basophils % 0.5 Nucleated Red Blood Cells % 0.0 Neutrophils # 0.7 L Lymphocytes # 1.1 Monocytes # 0.4 Eosinophils # 0.1 Basophils # 0.0 Nucleated Red Blood Cells # 0.0 Creatine Kinase 136 Medications Medications Current Medications Senna/Docusate Sodium (Senokot-S) 1 tab BID PO Last administered on 08/09/16t 21 :41; Admin Dose 1 TAB; Start 07/25/16 at 09:00 Magnesium Hydroxide (Milk Of Mag) 30 ml BID PRN PO CONSTIPATION Last administered on 07/27/16 20:02; Admin Dose 30 ML; Start 07/25/16 at 00:00 Magnesium Hydroxide (Milk Of Mag) 30 ml HS PO Last administered on 07/30/16 20 :24; Admin Dose 30 ML; Start 07/26/16 at 21:00 Bisacodyl (Dulcolax Supp) 10 mg DAILY PRN [place] CONSTIPATION; Start 07/25/16 at 00 :00 Sodium Biphosphate/ Sodium Phosphate (Fleet Enema) 133 ml DAILY PRN [place] CONSTIPATION; Start 07/25/16 at 00:00 Oxycodone/ Acetaminophen (Percocet (5/ 325)) 1 tab Q4H PRN PO PAIN; Start 07/25 at 00:00 Oxycodone/ Acetaminophen (Percocet (5/ 325)) 2 tab Q4H PRN PO PAIN Last administered on 07/26/16 21:11; Admin Dose 2 TAB; Start 07/25/16 at 00:00 Morphine Sulfate (morphine) 5 mg Q4H PRN IV PAIN LEVEL 7-10 Last administered on 08/08/16 18:24; Admin Dose 5 MG; Start 07/25/16 at 00:00 Ondansetron HCl (Zofran Inj) 4 mg Q4H PRN IV NAUSEA AND/OR VOMITING Last administered on 08/10/16 07:34; Admin Dose 4 MG; Start 07/25/16 at 00:00 Diphenhydramine HCl (Benadryl) 25 mg Q4H PRN PO ITCHING; Start 07/25/16 at 00: 00 Bisacodyl (Dulcolax) 10 mg DAILY PRN PO CONSTIPATION Last administered on 08:19; Admin Dose 10 MG; Start 07/26/16 at 09:30 Mupirocin (Bactroban) 1 applic BID TOP Last administered on 08/11/16 08:51; Admin Dose 1 APPLIC; Start 07/27/16 at 21:00 IV Flush 10 ml 10 ml PRN PRN IV FLUSH LINE Last administered on 07/29/16 04:44 ; Admin Dose 10 ML; Start 07/27/16 at 20:00 Dextrose/Lactated Ringer's (D5-Lr) 1,000 ml @ 20 mls/hr Q24H IV Last administered on 08/10/16 22:30; Admin Dose 20 MLS/HR; Start 07/31/16 at 12:30 Loperamide HCl (Imodium Cap) 2 mg QID PRN PO DIARRHEA Last administered on 08/02 08:01; Admin Dose 2 MG; Start 08/02/16 at 08:00 Tramadol HCl (Ultram) 50 mg Q6H PRN GTB pain; Start 08/06/16 at 19:00 Acetaminophen 1000 mg 1,000 mg Q4H PRN PO PAIN AND OR ELEVATED TEMP>100 Last administered on 08/11/16 03:39; Admin Dose 1,000 MG; Start 08/06/16 at 23:30 Acetaminophen (Ofirmev 1000mg/ 100ml Iv) 100 ml @ 400 mls/hr Q6H PRN IVPB FEVER Last administered on 08/09/16 21:42; Admin Dose 400 MLS/HR; Start 08/07/16 at 14:15 Acetaminophen/ Hydrocodone Bitart ([place] (7.5-325)) 1 tab Q4H PRN PO pain Last administered on 08/09/16 06:55; Admin Dose 1 TAB; Start 08/09/16 at 07:00 Acetaminophen/ Hydrocodone Bitart ([place] (7.5-325)) 2 tab Q4H PRN PO pain; Start 08/09/16 at 07:00 Diazepam 2 mg 2 mg Q8 PO Last administered on 08/10/16 07:35; Admin Dose 2 MG; Start 08/09/16 at 22:00 Daptomycin/Sodium Chloride (Cubicin/NS) 100 ml @ 200 mls/hr Q24H IVPB Last administered on 08/11/16 08:51; Admin Dose 200 MLS/HR; Start 08/10/16 at 08:30 SYLVIE ALBARADO MD August 11, 2016 09:45
[2016-08-11] MEDS: HYDROCODONE/APAP (7.5/325) TAB PO PRN ×3 (09:48→22:37)
--- NOTE | 2016-08-11 10:02 | PN ---
Date/Time of Note Date/Time of Note DATE: 08/11/16 TIME: 09:57 Assessment/Plan VTE Prophylaxis VTE Prophylaxis Intervention: anti-embolic stocking, LMWH Lines/Catheters IV Catheter Type (from Nrsg): PICC Line Central line still needed: Yes Urinary Cath still in place: No Assessment/Plan Chief Complaint/Hosp Course Chief Complaint/Hosp Course s/p ACL reconstruction with Achilles allograft on 07/12/16, and s/p I&D with cultures on 07/25/16 and again on 07/27/16, 07/31/16 and removal of graft, hardware and AFSHAN on 08/07/16. Problems: Assessment/Plan - Pain control: [place] to 7.5 1-2 tabs - PT/OT needs to be daily, ordered CPM today for use 2 hours each TID. Set 0- 60 for now. WBAT. 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 Follow ID recs, switching from vanc/ rifampin to cubicin - Needs to be out of bed to chair for all meals. Continue to use incentive spirometer for atalectasis prevention. Problems: Assessment/Plan s/p ACL reconstruction with Achilles allograft on 07/12/16, and s/p I&D with cultures on 07/25/16 and again on 07/27/16, 07/31/16 and removal of graft, hardware and AFSHAN on 08/07/16. Assessment/Plan - Pain control: [place] to 7.5 1-2 tabs - PT/OT needs to be daily, CPM 2 hours each session TID. Set 0-60 for now. WBAT. 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 Follow ID recs, switching from vanc/ rifampin to cubicin, leukopenia should improve per ID, likely from vanc or rifampin. If another 24 hours afebrile may go home tomorrow. - Needs to be out of bed to chair for all meals. Continue to use incentive spirometer for atalectasis prevention. Problems: Subjective 24 Hr Interval Summary Free Text/Dictation Feels better this am. No nausea yesterday and was able to eat. She did not work with PT because no PT available. No fevers x 24hrs. Constitutional: no complaints Eyes: no complaints Respiratory: no complaints Cardiovascular: no complaints Exam/Review of Systems Vital Signs Vitals Vital Signs Date Time Temp Pulse Resp B/P Pulse Ox O2 Delivery O2 Flow Rate FiO2 08/11/16 07:49 98.3 77 18 131/78 97 08/08/16 05:18 Nasal Cannula 08/07/16 22:15 2.0 Intake and Output 08/10/16 08/10/16 08/11/16 15:00 23:00 07:00 Intake Total 210 ml 450 ml 380 ml Output Total 400 ml 300 ml Balance 210 ml 50 ml 80 ml Exam Constitutional: alert, oriented Psych: no complaints Head: atraumatic, normocephalic Respiratory: normal air movement Cardiovascular: nl pulses, regular rate and rhythm Musculoskeletal: other Additional Comments LLE: wound vac in place with adequate seal. No drainage on dressing. Foot wwp. No calf tenderness Results Result Diagram: 08/11/16 0434 08/11/16 0430 Results 24 hrs Laboratory Tests Test 08/11/16 04:30 08/11/16 04:34 Sodium Level 136 Potassium Level 3.9 Chloride Level 106 Carbon Dioxide Level 24 Anion Gap 10 Blood Urea Nitrogen 4 L Creatinine 0.52 Glucose Level 347 #H Calcium Level 8.5 Total Bilirubin 0.2 Direct Bilirubin 0.00 Indirect Bilirubin 0.2 Aspartate Amino Transf (AST/SGOT) 113 H Alanine Aminotransferase (ALT/SGPT) 107 H Alkaline Phosphatase 92 Total Protein 6.7 Albumin 3.1 L Globulin 3.60 H Albumin/Globulin Ratio 0.86 White Blood Count 2.2 L Red Blood Count 3.44 L Hemoglobin 10.0 L Hematocrit 30.1 L Mean Corpuscular Volume 87.5 Mean Corpuscular Hemoglobin 29.1 Mean Corpuscular Hemoglobin Concent 33.2 Red Cell Distribution Width 12.7 Platelet Count 327 Mean Platelet Volume 8.7 Neutrophils % 30.7 L Lymphocytes % 49.8 Monocytes % 16.7 H Eosinophils % 2.3 Basophils % 0.5 Nucleated Red Blood Cells % 0.0 Neutrophils # 0.7 L Lymphocytes # 1.1 Monocytes # 0.4 Eosinophils # 0.1 Basophils # 0.0 Nucleated Red Blood Cells # 0.0 Creatine Kinase 136 Medications Medications Current Medications Senna/Docusate Sodium (Senokot-S) 1 tab BID PO Last administered on 08/09/16 21 :41; Admin Dose 1 TAB; Start 07/25/16 at 09:00 Magnesium Hydroxide (Milk Of Mag) 30 ml BID PRN PO CONSTIPATION Last administered on 07/27/16 20:02; Admin Dose 30 ML; Start 07/25/16 at 00:00 Magnesium Hydroxide (Milk Of Mag) 30 ml HS PO Last administered on 07/30/16 20 :24; Admin Dose 30 ML; Start 07/26/16 at 21:00 Bisacodyl (Dulcolax Supp) 10 mg DAILY PRN [place] CONSTIPATION; Start 07/25/16 at 00 :00 Sodium Biphosphate/ Sodium Phosphate (Fleet Enema) 133 ml DAILY PRN [place] CONSTIPATION; Start 07/25/16 at 00:00 Oxycodone/ Acetaminophen (Percocet (5/ 325)) 1 tab Q4H PRN PO PAIN; Start 07/25 at 00:00 Oxycodone/ Acetaminophen (Percocet (5/ 325)) 2 tab Q4H PRN PO PAIN Last administered on 07/26/16 21:11; Admin Dose 2 TAB; Start 07/25/16 at 00:00 Morphine Sulfate (morphine) 5 mg Q4H PRN IV PAIN LEVEL 7-10 Last administered on 08/08/16 18:24; Admin Dose 5 MG; Start 07/25/16 at 00:00 Ondansetron HCl (Zofran Inj) 4 mg Q4H PRN IV NAUSEA AND/OR VOMITING Last administered on 08/10/16 07:34; Admin Dose 4 MG; Start 07/25/16 at 00:00 Diphenhydramine HCl (Benadryl) 25 mg Q4H PRN PO ITCHING; Start 07/25/16 at 00: 00 Bisacodyl (Dulcolax) 10 mg DAILY PRN PO CONSTIPATION Last administered on 08:19; Admin Dose 10 MG; Start 07/26/16 at 09:30 Mupirocin (Bactroban) 1 applic BID TOP Last administered on 08/11/16 08:51; Admin Dose 1 APPLIC; Start 07/27/16 at 21:00 IV Flush 10 ml 10 ml PRN PRN IV FLUSH LINE Last administered on 07/29/16 04:44 ; Admin Dose 10 ML; Start 07/27/16 at 20:00 Dextrose/Lactated Ringer's (D5-Lr) 1,000 ml @ 20 mls/hr Q24H IV Last administered on 08/10/16 22:30; Admin Dose 20 MLS/HR; Start 07/31/16 at 12:30 Loperamide HCl (Imodium Cap) 2 mg QID PRN PO DIARRHEA Last administered on 08/02 08:01; Admin Dose 2 MG; Start 08/02/16 at 08:00 Tramadol HCl (Ultram) 50 mg Q6H PRN GTB pain; Start 08/06/16 at 19:00 Acetaminophen 1000 mg 1,000 mg Q4H PRN PO PAIN AND OR ELEVATED TEMP>100 Last administered on 08/11/16 03:39; Admin Dose 1,000 MG; Start 08/06/16 at 23:30 Acetaminophen (Ofirmev 1000mg/ 100ml Iv) 100 ml @ 400 mls/hr Q6H PRN IVPB FEVER Last administered on 08/09/16 21:42; Admin Dose 400 MLS/HR; Start 08/07/16 at 14:15 Acetaminophen/ Hydrocodone Bitart ([place] (7.5-325)) 1 tab Q4H PRN PO pain Last administered on 08/11/16 09:48; Admin Dose 1 TAB; Start 08/09/16 at 07:00 Acetaminophen/ Hydrocodone Bitart ([place] (7.5-325)) 2 tab Q4H PRN PO pain; Start 08/09/16 at 07:00 Diazepam 2 mg 2 mg Q8 PO Last administered on 08/10/16 07:35; Admin Dose 2 MG; Start 08/09/16 at 22:00 Daptomycin/Sodium Chloride (Cubicin/NS) 100 ml @ 200 mls/hr Q24H IVPB Last administered on 08/11/16 08:51; Admin Dose 200 MLS/HR; Start 08/10/16 at 08:30 Prenat Multivit/ [place]/Iron/Folic Ac ( S) 1 tab DAILY PO ; Start at 09:00 RADHA CUEVA MD August 11, 2016 10:01
--- NOTE | 2016-08-11 11:28 | CONS ---
Date/Time of Note Date/Time of Note DATE: 08/11/16 TIME: 11:26 Assessment/Plan Assessment/Plan Additional Assessment/Plan 1. Left knee infection, afebrile on new abx regimen, abnl liver tests noted, will rev with ID 2. Anemia is stable. Consultation Date/Type/Reason Admit Date/Time Jul 24, 2016 at 17:51 Type of Consultation: ID Detailed Summary Respiratory: No cough, No shortness of breath Gastrointestinal: No nausea, No pain, No vomiting Genitourinary: no complaints Musculoskeletal: bone/joint pain (mild left knee pain) Exam/Review of Systems Vital Signs Vitals Vital Signs Date Time Temp Pulse Resp B/P Pulse Ox O2 Delivery O2 Flow Rate FiO2 08/11/16 07:49 98.3 77 18 131/78 97 08/08/16 05:18 Nasal Cannula 08/07/16 22:15 2.0 Intake and Output 08/10/16 08/10/16 08/11/16 15:00 23:00 07:00 Intake Total 210 ml 450 ml 380 ml Output Total 400 ml 300 ml Balance 210 ml 50 ml 80 ml Exam Neck: No jvd Respiratory: clear to auscultation Cardiovascular: regular rate and rhythm Gastrointestinal: soft, No hepatomegaly, No tender Extremities: No edema (and no calf tend) Results Result Diagram: 08/11/16 0434 08/11/16 0430 Results 24 hrs Laboratory Tests Test 08/11/16 04:30 08/11/16 04:34 Sodium Level 136 Potassium Level 3.9 Chloride Level 106 Carbon Dioxide Level 24 Anion Gap 10 Blood Urea Nitrogen 4 L Creatinine 0.52 Glucose Level 347 #H Calcium Level 8.5 Total Bilirubin 0.2 Direct Bilirubin 0.00 Indirect Bilirubin 0.2 Aspartate Amino Transf (AST/SGOT) 113 H Alanine Aminotransferase (ALT/SGPT) 107 H Alkaline Phosphatase 92 Total Protein 6.7 Albumin 3.1 L Globulin 3.60 H Albumin/Globulin Ratio 0.86 White Blood Count 2.2 L Red Blood Count 3.44 L Hemoglobin 10.0 L Hematocrit 30.1 L Mean Corpuscular Volume 87.5 Mean Corpuscular Hemoglobin 29.1 Mean Corpuscular Hemoglobin Concent 33.2 Red Cell Distribution Width 12.7 Platelet Count 327 Mean Platelet Volume 8.7 Neutrophils % 30.7 L Lymphocytes % 49.8 Monocytes % 16.7 H Eosinophils % 2.3 Basophils % 0.5 Nucleated Red Blood Cells % 0.0 Neutrophils # 0.7 L Lymphocytes # 1.1 Monocytes # 0.4 Eosinophils # 0.1 Basophils # 0.0 Nucleated Red Blood Cells # 0.0 Creatine Kinase 136 Medications Medications Current Medications Senna/Docusate Sodium (Senokot-S) 1 tab BID PO Last administered on 08/09/16 21 :41; Admin Dose 1 TAB; Start 07/25/16 at 09:00 Magnesium Hydroxide (Milk Of Mag) 30 ml BID PRN PO CONSTIPATION Last administered on 07/27/16 20:02; Admin Dose 30 ML; Start 07/25/16 at 00:00 Magnesium Hydroxide (Milk Of Mag) 30 ml HS PO Last administered on 07/30/16 20 :24; Admin Dose 30 ML; Start 07/26/16 at 21:00 Bisacodyl (Dulcolax Supp) 10 mg DAILY PRN [place] CONSTIPATION; Start 07/25/16 at 00 :00 Sodium Biphosphate/ Sodium Phosphate (Fleet Enema) 133 ml DAILY PRN [place] CONSTIPATION; Start 07/25/16 at 00:00 Oxycodone/ Acetaminophen (Percocet (5/ 325)) 1 tab Q4H PRN PO PAIN; Start 07/25 at 00:00 Oxycodone/ Acetaminophen (Percocet (5/ 325)) 2 tab Q4H PRN PO PAIN Last administered on 07/26/16 21:11; Admin Dose 2 TAB; Start 07/25/16 at 00:00 Morphine Sulfate (morphine) 5 mg Q4H PRN IV PAIN LEVEL 7-10 Last administered on 08/08/16 18:24; Admin Dose 5 MG; Start 07/25/16 at 00:00 Ondansetron HCl (Zofran Inj) 4 mg Q4H PRN IV NAUSEA AND/OR VOMITING Last administered on 08/10/16 07:34; Admin Dose 4 MG; Start 07/25/16 at 00:00 Diphenhydramine HCl (Benadryl) 25 mg Q4H PRN PO ITCHING; Start 07/25/16 at 00: 00 Bisacodyl (Dulcolax) 10 mg DAILY PRN PO CONSTIPATION Last administered on 08:19; Admin Dose 10 MG; Start 07/26/16 at 09:30 Mupirocin (Bactroban) 1 applic BID TOP Last administered on 08/11/16 08:51; Admin Dose 1 APPLIC; Start 07/27/16 at 21:00 IV Flush 10 ml 10 ml PRN PRN IV FLUSH LINE Last administered on 07/29/16 04:44 ; Admin Dose 10 ML; Start 07/27/16 at 20:00 Dextrose/Lactated Ringer's (D5-Lr) 1,000 ml @ 20 mls/hr Q24H IV Last administered on 08/10/16 22:30; Admin Dose 20 MLS/HR; Start 07/31/16 at 12:30 Loperamide HCl (Imodium Cap) 2 mg QID PRN PO DIARRHEA Last administered on 08/02 08:01; Admin Dose 2 MG; Start 08/02/16 at 08:00 Tramadol HCl (Ultram) 50 mg Q6H PRN GTB pain; Start 08/06/16 at 19:00 Acetaminophen 1000 mg 1,000 mg Q4H PRN PO PAIN AND OR ELEVATED TEMP>100 Last administered on 08/11/16 03:39; Admin Dose 1,000 MG; Start 08/06/16 at 23:30 Acetaminophen (Ofirmev 1000mg/ 100ml Iv) 100 ml @ 400 mls/hr Q6H PRN IVPB FEVER Last administered on 08/09/16 21:42; Admin Dose 400 MLS/HR; Start 08/07/16 at 14:15 Acetaminophen/ Hydrocodone Bitart ([place] (7.5-325)) 1 tab Q4H PRN PO pain Last administered on 08/11/16 09:48; Admin Dose 1 TAB; Start 08/09/16 at 07:00 Acetaminophen/ Hydrocodone Bitart ([place] (7.5-325)) 2 tab Q4H PRN PO pain; Start 08/09/16 at 07:00 Diazepam 2 mg 2 mg Q8 PO Last administered on 08/10/16 07:35; Admin Dose 2 MG; Start 08/09/16 at 22:00 Daptomycin/Sodium Chloride (Cubicin/NS) 100 ml @ 200 mls/hr Q24H IVPB Last administered on 5/7/17at 08:51; Admin Dose 200 MLS/HR; Start 08/10/16 at 08:30 Prenat Multivit/ [place]/Iron/Folic Ac ( S) 1 tab DAILY PO ; Start at 09:00 MARCUS SCHILLING MD August 11, 2016 11:28
[2016-08-11] MEDS: RIVAROXABAN 10 MG TABLET PO SCH (16:56)
[2016-08-11 20:36] VITALS: BP 131/77; RESP 18
[2016-08-11] MEDS: MAGNESIUM HYDROXIDE 30ML CUP PO SCH (21:00)
[2016-08-12 05:27] LABS: ADD SCAN DIFF NO
[2016-08-12 06:00] LABS: CREATINE KINASE 117 IU/L (23-200)
[2016-08-12] MEDS: DIAZEPAM 2 MG TAB PO SCH ×2 (06:00→14:00)
[2016-08-12 06:01] LABS: ALBUMIN 3.3 g/dl (3.3-4.9); ALBUMIN/GLOBULIN RATIO 0.89; BILIRUBIN,INDIRECT 0.2 mg/dl (0-1.1); BILIRUBIN,TOTAL 0.2 mg/dl (0.2-1.3); CREATININE 0.55 mg/dl (0.44-1.00); POTASSIUM 4.2 mmol/L (3.5-5.1)
[2016-08-12 06:02] LABS: ABNORMAL IP MESSAGE 1; BASOPHILS % 0.3 % (0.0-2.0); EOSINOPHILS # 0.1 10^3/ul (0.0-0.5); EOSINOPHILS % 4.4 % (0.0-7.0); HEMATOCRIT 34.4 % (37.0-47.0); HEMOGLOBIN 11.2 g/dl (12.0-16.0); LYMPHOCYTES # 1.9 10^3/ul (0.8-2.9); LYMPHOCYTES % 63.6 % (15.0-51.0); MEAN CORPUSCULAR HEMOGLOBIN 28.6 pg (29.0-33.0); MEAN CORPUSCULAR HGB CONC 32.6 g/dl (32.0-37.0); MEAN PLATELET VOLUME 8.8 fl (7.4-10.4); MONOCYTE # 0.4 10^3/ul (0.3-0.9); MONOCYTES % 11.8 % (0.0-11.0); NEUTROPHIL # 0.6 10^3/ul (1.6-7.5); NEUTROPHILS % 19.9 % (39.0-77.0); PLATELET COUNT 378 10^3/UL (140-415); RED BLOOD COUNT 3.91 10^6/ul (4.20-5.40)
[2016-08-12 06:08] LABS: CK-MB 0.23 ng/ml (0.0-2.4)
[2016-08-12 07:01] LABS: TROPONIN-I < 0.012 ng/ml (0.00-0.12)
--- NOTE | 2016-08-12 07:50 | CONS ---
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 continue to follow ESR and CRP for reponse to therapy on a weekly basis anticipate at least a 6 week course of treatment. will follow with you 08/08 - spoke to pharmacy she will be changed to [id number] dosing of vanco edited case management consult to continue IV vanco thru 09/17/16 pt to get weekly cbc, bmp, esr, crp and vanco trough knee cx are pending 08/09 - knee cx is growing GPC, likely s.aureus continue with vanco/rif, if fevers persist will change to cubicin/rif if fevers resolved, as long as pt is on po pain meds can d/c tomorrow with home health pt had hardware and graft removed on 08/07 08/10 - knee cx has s.aureus again, no fungal organisms seen, it was just tissue fragments d/c vanco/rifampin pt may be having drug fever to vanco and if not she is having low wbc due to it and may have failed it now that hardware and graft has been removed no need for rifampin and she has significant nausea start cubicin 6mg/kg q24 hours case management referral has been updated to reflect this change 08/11 - improved on cubicin if pt remains afebrile on cubicin then ok for d/c from ID perspective tomorrow continue cubicin thru 09/17/16 low WBC likely due to vanco and/or rifampin and should improve in a few days 08/12 - LFT elevation likely due to rifampin and is no longer rising WBC is improving ok for d/c from ID perspective once home iv cubicin has been set up follow-up in my office in one month continue cubicin thru 09/17 with weekly blood for cbc, bmp, esr, crp and cpk Problems: Consultation Date/Type/Reason Admit Date/Time Jul 24, 2016 at 17:51 Initial Consult Date 08/07/16 Type of Consultation: ID [id number] HR Interval Summary Free Text/Dictation doing better no more fevers and no more nausea has pain to knee but was up walking yesterday Exam/Review of Systems Vital Signs Vitals Vital Signs Date Time Temp Pulse Resp B/P Pulse Ox O2 Delivery O2 Flow Rate FiO2 08/11/16 20:36 98.5 90 18 131/77 96 Intake and Output 08/11/16 08/11/16 08/12/16 15:00 23:00 07:00 Intake Total 100 ml 1920 ml 805 ml Output Total 750 ml 500 ml Balance 100 ml 1170 ml 305 ml Exam Constitutional: alert, oriented Head: normocephalic Eyes: nl sclera ENMT: mucosa pink and moist Respiratory: clear to auscultation Cardiovascular: regular rate and rhythm Gastrointestinal: non-tender, soft Results Result Diagram: 08/12/16 0502 08/12/16 0502 Results 24 hrs Laboratory Tests Test 08/11/16 11:59 08/12/16 05:02 Creatine Kinase 150 117 White Blood Count 3.0 #L Red Blood Count 3.91 L Hemoglobin 11.2 L Hematocrit 34.4 L Mean Corpuscular Volume 88.0 Mean Corpuscular Hemoglobin 28.6 L Mean Corpuscular Hemoglobin Concent 32.6 Red Cell Distribution Width 13.0 Platelet Count 378 Mean Platelet Volume 8.8 Neutrophils % 19.9 L Lymphocytes % 63.6 H Monocytes % 11.8 H Eosinophils % 4.4 Basophils % 0.3 Nucleated Red Blood Cells % 0.0 Neutrophils # 0.6 L Lymphocytes # 1.9 Monocytes # 0.4 Eosinophils # 0.1 Basophils # 0.0 Nucleated Red Blood Cells # 0.0 Sodium Level 140 Potassium Level 4.2 Chloride Level 107 Carbon Dioxide Level 25 Anion Gap 12 Blood Urea Nitrogen 5 L Creatinine 0.55 Glucose Level 87 # Calcium Level 9.0 Total Bilirubin 0.2 Direct Bilirubin 0.00 Indirect Bilirubin 0.2 Aspartate Amino Transf (AST/SGOT) 100 H Alanine Aminotransferase (ALT/SGPT) 110 H Alkaline Phosphatase 96 Creatine Kinase Index 0.2 Creatinine Kinase MB (Mass) 0.23 Troponin I < 0.012 C-Reactive Protein 2.8 H Total Protein 7.0 Albumin 3.3 Globulin 3.70 H Albumin/Globulin Ratio 0.89 Medications Medications Current Medications Senna/Docusate Sodium (Senokot-S) 1 tab BID PO Last administered on 08/11/16 22 :03; Admin Dose 1 TAB; Start 07/25/16 at 09:00 Magnesium Hydroxide (Milk Of Mag) 30 ml BID PRN PO CONSTIPATION Last administered on 07/27/16 20:02; Admin Dose 30 ML; Start 07/25/16 at 00:00 Magnesium Hydroxide (Milk Of Mag) 30 ml HS PO Last administered on 07/30/16 20 :24; Admin Dose 30 ML; Start 07/26/16 at 21:00 Bisacodyl (Dulcolax Supp) 10 mg DAILY PRN [place] CONSTIPATION; Start 07/25/16 at 00 :00 Sodium Biphosphate/ Sodium Phosphate (Fleet Enema) 133 ml DAILY PRN [place] CONSTIPATION; Start 07/25/16 at 00:00 Oxycodone/ Acetaminophen (Percocet (5/ 325)) 1 tab Q4H PRN PO PAIN; Start 07/25 at 00:00 Oxycodone/ Acetaminophen (Percocet (5/ 325)) 2 tab Q4H PRN PO PAIN Last administered on 07/26/16 21:11; Admin Dose 2 TAB; Start 07/25/16 at 00:00 Morphine Sulfate (morphine) 5 mg Q4H PRN IV PAIN LEVEL 7-10 Last administered on 08/08/16 18:24; Admin Dose 5 MG; Start 07/25/16 at 00:00 Ondansetron HCl (Zofran Inj) 4 mg Q4H PRN IV NAUSEA AND/OR VOMITING Last administered on 08/10/16 07:34; Admin Dose 4 MG; Start 07/25/16 at 00:00 Diphenhydramine HCl (Benadryl) 25 mg Q4H PRN PO ITCHING; Start 07/25/16 at 00: 00 Bisacodyl (Dulcolax) 10 mg DAILY PRN PO CONSTIPATION Last administered on 08:19; Admin Dose 10 MG; Start 07/26/16 at 09:30 Mupirocin (Bactroban) 1 applic BID TOP Last administered on 08/11/16 22:03; Admin Dose 1 APPLIC; Start 07/27/16 at 21:00 IV Flush 10 ml 10 ml PRN PRN IV FLUSH LINE Last administered on 07/29/16 04:44 ; Admin Dose 10 ML; Start 07/27/16 at 20:00 Dextrose/Lactated Ringer's (D5-Lr) 1,000 ml @ 20 mls/hr Q24H IV Last administered on 08/10/16 22:30; Admin Dose 20 MLS/HR; Start 07/31/16 at 12:30 Loperamide HCl (Imodium Cap) 2 mg QID PRN PO DIARRHEA Last administered on 08/02 08:01; Admin Dose 2 MG; Start 08/02/16 at 08:00 Tramadol HCl (Ultram) 50 mg Q6H PRN GTB pain; Start 08/06/16 at 19:00 Acetaminophen 1000 mg 1,000 mg Q4H PRN PO PAIN AND OR ELEVATED TEMP>100 Last administered on 08/11/16 17:08; Admin Dose 1,000 MG; Start 08/06/16 at 23:30 Acetaminophen (Ofirmev 1000mg/ 100ml Iv) 100 ml @ 400 mls/hr Q6H PRN IVPB FEVER Last administered on 08/09/16 21:42; Admin Dose 400 MLS/HR; Start 08/07/16 at 14:15 Acetaminophen/ Hydrocodone Bitart ([place] (7.5-325)) 1 tab Q4H PRN PO pain Last administered on 08/11/16 22:37; Admin Dose 1 TAB; Start 08/09/16 at 07:00 Acetaminophen/ Hydrocodone Bitart ([place] (7.5-325)) 2 tab Q4H PRN PO pain; Start 08/09/16 at 07:00 Diazepam 2 mg 2 mg Q8 PO Last administered on 08/10/16 07:35; Admin Dose 2 MG; Start 08/09/16 at 22:00 Daptomycin/Sodium Chloride (Cubicin/NS) 100 ml @ 200 mls/hr Q24H IVPB Last administered on 08/11/16 08:51; Admin Dose 200 MLS/HR; Start 08/10/16 at 08:30 Prenat Multivit/ [place]/Iron/Folic Ac ( S) 1 tab DAILY PO ; Start at 09:00 SYLVIE ALBARADO MD August 12, 2016 07:50
--- NOTE | 2016-08-12 08:14 | OPR ---
DATE OF OPERATION: OPERATIVE NOTE CORRECTION: Her operative report was listed as 07/24/2016. She has had multiple ope rative reports, but the one that was listed for 07/24/2016, was done on 07/25/2016. Please correct the date of operation to 07/25/2016, where it says 07/24/2016. Dictated By: MERLYN TAFOYA MD RF/NTS Conf#: [id number] DID#: [id number]
[2016-08-12] MEDS: DAPTOMYCIN 390 MG in SOD CHLORIDE 0.9% 100 ML IVPB SCH (08:28)
[2016-08-12] MEDS: DEXTROSE 5%-LR 1,000 ML IV SCH (08:30)
--- NOTE | 2016-08-12 08:31 | CONS ---
Date/Time of Note Date/Time of Note DATE: 08/12/16 TIME: 08:29 Assessment/Plan Assessment/Plan Additional Assessment/Plan 1. Left knee infection, ID note rev, will give rx for labs weekly 2. Abnornal liver tests, stable thought sec to rifampin which was stopped. 3. Leukopenia, stable 4. Can dc if ok with ortho Consultation Date/Type/Reason Admit Date/Time Jul 24, 2016 at 17:51 Type of Consultation: ID Detailed Summary Respiratory: No cough, No shortness of breath Cardiovascular: No chest pain Gastrointestinal: no complaints Genitourinary: no complaints Musculoskeletal: bone/joint pain (mild left knee pain) Exam/Review of Systems Vital Signs Vitals Vital Signs Date Time Temp Pulse Resp B/P Pulse Ox O2 Delivery O2 Flow Rate FiO2 08/11/16 20:36 98.5 90 18 131/77 96 Intake and Output 08/11/16 08/11/16 08/12/16 15:00 23:00 07:00 Intake Total 100 ml 1920 ml 805 ml Output Total 750 ml 500 ml Balance 100 ml 1170 ml 305 ml Exam Neck: No jvd Cardiovascular: regular rate and rhythm Gastrointestinal: soft, No hepatomegaly Genitourinary - Female: nl adnexae Extremities: edema (and no calf tend) Results Result Diagram: 08/12/16 0502 08/12/16 0502 Results 24 hrs Laboratory Tests Test 08/11/16 11:59 08/12/16 05:02 Creatine Kinase 150 117 White Blood Count 3.0 #L Red Blood Count 3.91 L Hemoglobin 11.2 L Hematocrit 34.4 L Mean Corpuscular Volume 88.0 Mean Corpuscular Hemoglobin 28.6 L Mean Corpuscular Hemoglobin Concent 32.6 Red Cell Distribution Width 13.0 Platelet Count 378 Mean Platelet Volume 8.8 Neutrophils % 19.9 L Lymphocytes % 63.6 H Monocytes % 11.8 H Eosinophils % 4.4 Basophils % 0.3 Nucleated Red Blood Cells % 0.0 Neutrophils # 0.6 L Lymphocytes # 1.9 Monocytes # 0.4 Eosinophils # 0.1 Basophils # 0.0 Nucleated Red Blood Cells # 0.0 Erythrocyte Sedimentation Rate 75 H Sodium Level 140 Potassium Level 4.2 Chloride Level 107 Carbon Dioxide Level 25 Anion Gap 12 Blood Urea Nitrogen 5 L Creatinine 0.55 Glucose Level 87 # Calcium Level 9.0 Total Bilirubin 0.2 Direct Bilirubin 0.00 Indirect Bilirubin 0.2 Aspartate Amino Transf (AST/SGOT) 100 H Alanine Aminotransferase (ALT/SGPT) 110 H Alkaline Phosphatase 96 Creatine Kinase Index 0.2 Creatinine Kinase MB (Mass) 0.23 Troponin I < 0.012 C-Reactive Protein 2.8 H Total Protein 7.0 Albumin 3.3 Globulin 3.70 H Albumin/Globulin Ratio 0.89 Medications Medications Current Medications Senna/Docusate Sodium (Senokot-S) 1 tab BID PO Last administered on 08/11/16 22 :03; Admin Dose 1 TAB; Start 07/25/16 at 09:00 Magnesium Hydroxide (Milk Of Mag) 30 ml BID PRN PO CONSTIPATION Last administered on 07/27/16 20:02; Admin Dose 30 ML; Start 07/25/16 at 00:00 Magnesium Hydroxide (Milk Of Mag) 30 ml HS PO Last administered on 07/30/16 20 :24; Admin Dose 30 ML; Start 07/26/16 at 21:00 Bisacodyl (Dulcolax Supp) 10 mg DAILY PRN [place] CONSTIPATION; Start 07/25/16 at 00 :00 Sodium Biphosphate/ Sodium Phosphate (Fleet Enema) 133 ml DAILY PRN [place] CONSTIPATION; Start 07/25/16 at 00:00 Oxycodone/ Acetaminophen (Percocet (5/ 325)) 1 tab Q4H PRN PO PAIN; Start 07/25 at 00:00 Oxycodone/ Acetaminophen (Percocet (5/ 325)) 2 tab Q4H PRN PO PAIN Last administered on 07/26/16 21:11; Admin Dose 2 TAB; Start 07/25/16 at 00:00 Morphine Sulfate (morphine) 5 mg Q4H PRN IV PAIN LEVEL 7-10 Last administered on 08/08/16 18:24; Admin Dose 5 MG; Start 07/25/16 at 00:00 Ondansetron HCl (Zofran Inj) 4 mg Q4H PRN IV NAUSEA AND/OR VOMITING Last administered on 08/10/16 07:34; Admin Dose 4 MG; Start 07/25/16 at 00:00 Diphenhydramine HCl (Benadryl) 25 mg Q4H PRN PO ITCHING; Start 07/25/16 at 00: 00 Bisacodyl (Dulcolax) 10 mg DAILY PRN PO CONSTIPATION Last administered on 08:19; Admin Dose 10 MG; Start 07/26/16 at 09:30 Mupirocin (Bactroban) 1 applic BID TOP Last administered on 08/11/16 22:03; Admin Dose 1 APPLIC; Start 07/27/16 at 21:00 IV Flush 10 ml 10 ml PRN PRN IV FLUSH LINE Last administered on 07/29/16 04:44 ; Admin Dose 10 ML; Start 07/27/16 at 20:00 Dextrose/Lactated Ringer's (D5-Lr) 1,000 ml @ 20 mls/hr Q24H IV Last administered on 08/10/16 22:30; Admin Dose 20 MLS/HR; Start 07/31/16 at 12:30 Loperamide HCl (Imodium Cap) 2 mg QID PRN PO DIARRHEA Last administered on 08/02 08:01; Admin Dose 2 MG; Start 08/02/16 at 08:00 Tramadol HCl (Ultram) 50 mg Q6H PRN GTB pain; Start 08/06/16 at 19:00 Acetaminophen 1000 mg 1,000 mg Q4H PRN PO PAIN AND OR ELEVATED TEMP>100 Last administered on 08/11/16 17:08; Admin Dose 1,000 MG; Start 08/06/16 at 23:30 Acetaminophen (Ofirmev 1000mg/ 100ml Iv) 100 ml @ 400 mls/hr Q6H PRN IVPB FEVER Last administered on 08/09/16 21:42; Admin Dose 400 MLS/HR; Start 08/07/16 at 14:15 Acetaminophen/ Hydrocodone Bitart ([place] (7.5-325)) 1 tab Q4H PRN PO pain Last administered on 08/11/16 22:37; Admin Dose 1 TAB; Start 08/09/16 at 07:00 Acetaminophen/ Hydrocodone Bitart ([place] (7.5-325)) 2 tab Q4H PRN PO pain; Start 08/09/16 at 07:00 Diazepam 2 mg 2 mg Q8 PO Last administered on 08/10/16 07:35; Admin Dose 2 MG; Start 08/09/16 at 22:00 Daptomycin/Sodium Chloride (Cubicin/NS) 100 ml @ 200 mls/hr Q24H IVPB Last administered on 08/11/16t 08:51; Admin Dose 200 MLS/HR; Start 08/10/16 at 08:30 Prenat Multivit/ [place]/Iron/Folic Ac ( S) 1 tab DAILY PO ; Start at 09:00 MARCUS SCHILLING MD August 12, 2016 08:31
[2016-08-12 08:34] VITALS: BP 130/75; RESP 18
[2016-08-12] MEDS: MUPIROCIN 2% 22 GM OINT TOP SCH (08:36)
[2016-08-12] MEDS: SENNA/DOCUSATE NA (8.6MG/50MG) TAB PO SCH (08:37)
[2016-08-12] MEDS ORDERED: MULTIVIT/MIN/FOLATE/IRON/PREN TAB PO SCH (09:00)
[2016-08-12] MEDS: RIVAROXABAN 10 MG TABLET PO SCH (17:31)
--- NOTE | 2016-08-13 12:31 | DS ---
DATE OF ADMISSION: 07/24/2016 DATE OF DISCHARGE: 08/12/2016 DISCHARGE DIAGNOSES: 1. Methicillin-resistant Staphylococcus aureus infection of the left knee status post anterior cruciate ligament reconstruction. 2. Status post ACL reconstruction and partial medial meniscectomy, 07/12/2016, with Achilles tendon allograft. 3. Status post multiple surgeries, left knee, secondary to an infection. SURGERIES: 1. Arthroscopy of the left knee, irrigation and debridement, synovectomy, and open debridement and irrigation, proximal tibial wound, 07/25/2016. 2. Arthroscopy of the left knee, irrigation and debridement, synovectomy of the knee, and open irrigation and debridement of the proximal tibial wound, . 3. Arthroscopy of the left knee, irrigation and debridement of the knee, multiple cultures, irrigation and debridement of the wound, removal of Fastlok staple and portion of the Dacron tape, insertion of a wound VAC, 07/31/2016. 4. Arthroscopy of the left knee, irrigation and debridement of the knee and the proximal tibial wound, removal of ACL graft screw and RigidFix fixation and application of a wound VAC, 08/07/2016. 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 She tore her ACL. She was seen in the office. Workup revealed a tear rate of her ACL left knee and medial meniscus. She was taken to surgery 07/12/2016, underwent the above-mentioned procedure. Postoperatively, and she looked very good on her first postoperative visit. The wound looked good, there was no swelling, and she was able to do quadriceps contraction. She had been using the CPM machine. Subsequently on July 24 she called us telling us that she felt quite ill with an elevated fever. She was seen in the office, found to have a fever of 103. Her knee was aspirated and sent for cultures. She was admitted as an emergency to the hospital. On July 25 it was clear she had a knee infection. She was taken to the operating room, underwent debridement of the knee and the proximal tibial wound with irrigation and debridement. Postoperatively, she was found to have methicillin-resistant Staphylococcus aureus, seen by Dr. Casper, put on vancomycin and rifampin. She was taken back to the operating room on July 27 for a similar procedure. Because of continued fevers, she was taken back to the operating room a third time on July 31 for irrigation and debridement of the wound and the knee and removal Fastlok staple and portion of the Dacron tape. She actually looked better after doing this, but continued to still have fever spikes every day despite intensive workup. She had an indium 111 scan, showed uptake only in her knee. Because of continued temperature elevations and pain, she was taken to the operating room on August 07, underwent irrigation, debridement, and removal of ACL graft, screw and RigidFix fixation, and application of a wound VAC. Subsequently, she was also seen in consultation by Dr. Bear Durant, infectious disease specialist. I spoke by phone with Dr. Hammond , family friend and infectious disease specialist. She was switched off of vancomycin and rifampin and placed on Cubicin (daptomycin) 390 mg once a day. Subsequently her fever stopped. The wound looked good when it was reevaluated. The wound VAC was removed on August 11. Keeping up ambulating. She was working on the CPM machine. She was able to be discharged. At the time of discharge, her white count was only 3, her hematocrit had climbed to 34. She did require 2 units of blood prior to one of her surgeries. Because the infection will produce significant anemia. Her C-reactive protein was elevated , but upon discharge it was only 2.8. Her sed rate dropped down to 75. She appeared very stable. She is discharged with a PICC line to have the cubitus entered once a day. She will be on a CPM. Will see us back and 3 days and will initiated physical therapy after we check the wounds. She will keep the wounds dry, will not bath. She can be weightbearing as tolerated. We will follow her closely. Dictated By: MERLYN MULTANI/JUAN Conf#: [id number] DID#: [id number]
== END 2016-08-12 17:34 | disposition home health service (06) | DRG 464 ==
LOC: E/R 14:50 → TEL 17:51 → MS1 07-28 11:55
PROVIDERS: ADMIT Orthopaedic Surgery; ATTEND Orthopaedic Surgery
PROC: 0SBD0ZZ Excision of Left Knee Joint, Open Approach (ICD-10-PCS; principal; 2016-07-26)
PROC: 0SBD4ZZ Excision of Left Knee Joint, Percutaneous Endoscopic Approach (ICD-10-PCS; 2016-07-26)
PROC: 0SBD0ZZ Excision of Left Knee Joint, Open Approach (ICD-10-PCS; 2016-07-27)
PROC: 0SBD4ZZ Excision of Left Knee Joint, Percutaneous Endoscopic Approach (ICD-10-PCS; 2016-07-27)
PROC: 02H633Z Insertion of Infusion Device into Right Atrium, Percutaneous Approach (ICD-10-PCS; 2016-07-27)
PROC: 0QPH04Z Removal of Internal Fixation Device from Left Tibia, Open Approach (ICD-10-PCS; 2016-07-31)
PROC: 0SBD4ZZ Excision of Left Knee Joint, Percutaneous Endoscopic Approach (ICD-10-PCS; 2016-07-31)
PROC: 0SP Lower Joints, Removal (ICD-10-PCS; 2016-08-07)
PROC: 30233N1 Transfusion of Nonautologous Red Blood Cells into Peripheral Vein, Percutaneous Approach (ICD-10-PCS; 2016-08-07)
PROC: 0SNDXZZ Release Left Knee Joint, External Approach (ICD-10-PCS; 2016-08-07)
PROC: 0SP Lower Joints, Removal (ICD-10-PCS; 2016-08-07 16:00)
DX: T84.7XXA Infection and inflammatory reaction due to other internal orthopedic prosthetic devices, implants and grafts, initial encounter (principal); M00.062 Staphylococcal arthritis, left knee; N39.0 Urinary tract infection, site not specified; B95.62 Methicillin resistant Staphylococcus aureus infection as the cause of diseases classified elsewhere; K59.03 Drug induced constipation; R50.9 Fever, unspecified; D64.9 Anemia, unspecified; B96.20 Unspecified Escherichia coli [E. coli] as the cause of diseases classified elsewhere; B95.5 Unspecified streptococcus as the cause of diseases classified elsewhere; D50.9 Iron deficiency anemia, unspecified; Z79.02 Long term (current) use of antithrombotics/antiplatelets
CPT/HCPCS: 36415; 36430; 36569; 71010; 76937; 78806; 80048; 80053; 80202; 81001; 81003; 82270; 82550; 82553; 82565; 82607; 82728; 82947; 82962; 83540; 83605; 83735; 84100; 84145; 84484; 84520; 84703; 85025; 85610; 85651; 85730; 86140; 86644; 86850; 86900; 86901; 86920; 87040; 87070; 87075; 87081; 87086; 87102; 87116; 89050; 93005; 93306; 93971; 96365; 96366; 96367; 96375; 97116; 97163; 97164; 97530; A9570; J0131; J0360; J0690; J0696; J1100; J1170; J1885; J2175; J2250; J2270; J2370; J2405; J2543; J2710; J2765; J2795; J2916; J2997; J3010; J3370; J7030; J7050; J7121; P9016